=== PATIENT | female | born 1985 | race Caucasian/White ===

== ENCOUNTER 2020-10-23 14:19 | Outpatient (REF) | payer BC, SELFPAY ==
[2020-10-23 16:45] LABS: Glucose Urine UA NEG (NEG); Leukocyte Esterase Urine NEG (NEG); Nitrite Urine NEG (NEG); PH 5.5 (5.0-8.0); Specific Gravity - Urine >= 1.030 (1.005-1.025); Urine Blood 3+ (NEG); Urine Ketones NEG (NEG); Urine Protein NEG (NEG-TRACE)
[2020-10-23 16:48] LABS: Appearance Urine CLEAR; Color Urine YELLOW
[2020-10-23 16:57] LABS: Mucus Urine 2+ /LPF; RBC Urine 30-49 /HPF (0); Squamous Epithelial Cell Urine 1+ /LPF; WBC Urine 0-2 /HPF (0-4)
== END 2020-10-23 14:20 | disposition home or self-care (01) ==
LOC: HO.HMGCLDS 14:19
PROVIDERS: PCP Nurse Practitioner Family; Visit Provider Nurse Practitioner Family
DX: R35.0 Frequency of micturition (principal)
CPT/HCPCS: 81001; 87086

== ENCOUNTER 2021-01-25 13:55 | Outpatient (REF) | payer BC, SELFPAY | END 2021-01-25 13:56 | disposition home or self-care (01) | LOC: HO.LNP 13:55 | PROVIDERS: Visit Provider Physician Assistant | DX: R31.9 Hematuria, unspecified (principal); R35.0 Frequency of micturition | CPT/HCPCS: 87086 ==

== ENCOUNTER → 2021-03-24 10:00 | Outpatient (BNVA) | payer BC, SELFPAY | PROVIDERS: PCP Nurse Practitioner Family; Visit Provider Obstetrics & Gynecology ==

== ENCOUNTER → 2021-04-07 15:03 | Outpatient (BNVA) | payer BC, SELFPAY | PROVIDERS: PCP Nurse Practitioner Family; Visit Provider Obstetrics & Gynecology ==

== ENCOUNTER 2021-04-10 07:00 | Day surgery (SDC) | payer BC, SELFPAY ==
[2021-04-02 19:30] VITALS: BMI 38.5
--- NOTE | 2021-04-09 09:02 | HO.ANESPROP2 ---
Documented by User: Kristina Castro 04/09/21 09:03 HPI - Anesthesia Eval Consult details Narrative: 35yo F for Bilateral Salpingectomy Laparoscopic prn opioids PMFSH Active Problems Active Problems: All Active Problems (Updated 04/02/21 @ 19:28 by Mary Fortune RN) Urinary frequency (Acute) Hematuria (Acute) Past Medical History Medical History Anxiety Frequent UTI Family History Family History Mother Lung cancer Maternal Grandmother Breast cancer Surgical History Surgical History History of appendectomy History of umbilical hernia repair Social History Social History Alcohol intake: never Smoking Status: Never smoker Second Hand Smoke Exposure: No Use of substances other than those prescribed or required for medical reasons: Yes Substance Use Type: Marijuana Substance Use Frequency: Weekly Are you DNR?: No Advance Directives: No Advance Directives Information Provided: No Advance Directives on File: No Recently lost weight without trying: No Nutrition Risks: No Nutritional Risk Patient : No FDLMP: 03/26/21 Sexual orientation: Straight/Heterosexual Gender identity: female Meds Allergies Allergy/AdvReac Type Severity Reaction Status Date / Time Sulfa (Sulfonamide Allergy Mild UNKNOWN Verified 04/10/21 07:34 Antibiotics) [Sulfa (Sulfonamides)] nitrofurantoin AdvReac Intermediate visual Verified 04/10/21 07:34 [From Macrobid] disturbance. amoxicillin [Augmentin] AdvReac Unknown vomiting Verified 04/10/21 07:34 clavulanic acid [Augmentin] AdvReac Unknown vomiting Verified 04/10/21 07:34 sulfa Allergy Unknown patient Uncoded 01/25/21 09:20 can't remember Home Medications Medication Instructions Recorded Confirmed Last Taken Type fluoxetine 20 mg capsule 20 mg PO DAILY 01/25/21 04/02/21 Unknown History Exam Exam Date and Time: April 09, [id number] Height,Weight and Vital Signs: Height 4 ft 9 in Weight 80.739 kg Assessment and Plan Assessment Anesthesia Assessment: Chart Reviewed Documented by User: Jennifer Robin 04/10/21 07:43 PMF Past Medical History Medical History Anxiety Frequent UTI Family History Family History Mother Lung cancer Maternal Grandmother Breast cancer Surgical History Surgical History History of appendectomy History of umbilical hernia repair Social History Social History Alcohol intake: never Smoking Status: Never smoker Second Hand Smoke Exposure: No Use of substances other than those prescribed or required for medical reasons: Yes Substance Use Type: Marijuana Substance Use Frequency: Weekly Are you DNR?: No Advance Directives: No Advance Directives Information Provided: No Advance Directives on File: No Recently lost weight without trying: No Nutrition Risks: No Nutritional Risk Patient : No FDLMP: 03/26/21 Sexual orientation: Straight/Heterosexual Gender identity: female Meds Allergies Allergy/AdvReac Type Severity Reaction Status Date / Time Sulfa (Sulfonamide Allergy Mild UNKNOWN Verified 04/10/21 07:34 Antibiotics) [Sulfa (Sulfonamides)] nitrofurantoin AdvReac Intermediate visual Verified 04/10/21 07:34 [From Macrobid] disturbance. amoxicillin [Augmentin] AdvReac Unknown vomiting Verified 04/10/21 07:34 clavulanic acid [Augmentin] AdvReac Unknown vomiting Verified 04/10/21 07:34 sulfa Allergy Unknown patient Uncoded 01/25/21 09:20 can't remember Home Medications Medication Instructions Recorded Confirmed Last Taken Type fluoxetine 20 mg capsule 20 mg PO DAILY 01/25/21 04/02/21 Unknown History Exam Airway Mallampati Class: II TM Dist: >3cm Neck ROM: Full Assessment and Plan Assessment Anesthesia Assessment: Anesthesia Plan Discussed and Chart Reviewed Final Anesthetic Review NPO: Yes ASA Class: II Final Preanesthetic Review: No Changes in Pt Med Stat, Meds/Allgs Chart Reviewed, Consent Obtained/Reviewed and Anes Risks/Benef Reviewed Patient Risk: Low Procedure Risk: Low Assessment/Block/Sedation in SS: Assess/Block/Sedation-SS Anesthetic Plan Anesthetic Plan: GA Disposition: Standard PACU
[2021-04-10] VITALS (15 sets, daily range): BP systolic 101–137; BP diastolic 51–80; PULSE 64–77; RESP 16–17; TEMP 36.3–36.9; O2SAT 95–99
[2021-04-10] MEDS: Lactated Ringers 1,000 ML 100 ML IVCONT (07:40)
[2021-04-10] MEDS: Acetaminophen 325 MG TABLET 650 MG PO (07:40)
[2021-04-10 08:02] LABS: UPreg QC Valid YES; Urine Pregnancy NEGATIVE (NEGATIVE)
--- NOTE | 2021-04-10 08:03 | P.OP_ITS ---
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 Rubio is a 35 year old who has completed her family planning and desires a permanent form of sterilization. Surgical Risks: The patient was informed of the risks and benefits of the procedure. Risks included but were not limited to bleeding, infection, injury to the vulva, vagina, or cervix, and uterine perforation. The patient was counseled on the risk of sterilization failure being about 1% on average. The patient was informed that in the event a occurs, the risk of ectopic is increased. The patient expressed understanding of the risks involved, all questions were answered, and the patient consented to the procedure. The patient had valid sterilization consent at the time of the procedure. The patient was taken to the operating room where a time out was performed to confirm correct patient and correct procedure. General anesthesia was established. The patient was then positioned on the operating table in the dorsal lithotomy position with the legs supported using stirrups. All pressure points were padded and a Yesica hugger was placed to maintain control of core body temperature. The patient was then prepped and draped in the usual sterile fashion. A red rubber catheter was inserted and 100mL urine obtained. A sponge stick was placed in the vagina for uterine manipulation. Attention was turned to the abdomen where a 5mm horizontal infraumbilical incision was made. The 5mm trocar was introduced under direct visualization using the laparoscopy within the sleeve of the trocar. After intra-abdominal placement had been confirmed, the trocar was removed leaving the sleeve in place. The camera was introduced and pneumoperitoneum was established using carbon dioxide. Inspection of the abdominal cavity showed no gross abnormalities and there was no evidence of injury to the bowel, bladder, or vasculature. A large adhesion of mesentary was noted to the anterior abdominal wall in the midline and an additional adhesion of mesentary to the anterior left pelvic side wall was noted. Attention was turned to the pelvis. The patient was placed into Trendelenburg position. The fallopian tubes and ovaries were visualized bilaterally. It was noted that a portion of the fallopian tube, just distal to the ampula, was scarred to the side wall and the tube itself could not clearly be discerned from the scar tissue in this area. A small incision was made on the patient's left approximately 2cm above and 2cm medial to the left ASIS. A 5mm trocar was introduced through this incision under direct visualization with the laparoscope. The identical procedure was then performed on the right. The fallopian tubes were inspected bilaterally and the fimbriated ends of the fallopian tube were visualized bilaterally. The distal end of the left tube was grasped and lifted up and being careful to avoid the ovarian vessels, salpingectomy was initiated walking the Ligasure device from the distal towards the medial end of the tube. At the area involving scar tissue, an attempt was made to separate the tube with blunt dissection, however a blood vessel was transected. The distal portion of the tube was cauterized and cut and removed through the trocar. An attempt was made to stop the bleeding with the Ligasure device; however, the Tia tip further tore the tissue. After multiple attempts, the decision was made to replace the right 5mm trocar with a 12mm trocar so that a larger Ligasure with a broad tip could be used to achieve coagulation. The 5mm trocar was removed and the incision extended for introduction of the 12mm trocar, which was introduced under direct visualization with the laparoscope. The larger Ligasure was then introduced. Suction was performed to isolate the bleeding and the Ligasure was then used to cauterize the area. Minimal oozing was noted and surgicel was applied. The medial portion of the tube was then cauterized and transected from the uterus at the cornua and removed through the trocar. The right tube was then grasped at the distal end and salpingectomy was performed walking the Ligasure device from the distal towards the medial end of the tube; the tube was cauterized and cut at the cornua. The tubes were sent to pathology for analysis. The left side was again examined. The pelvis was irrigated. No active bleeding was noted; however, the surgicel was noted to be soaked and was replaced with a new piece of surgicel. Good hemostasis was noted. The pneumoperitoneum was then evacuated. The laparoscope was removed and the trocar sleeves were removed. The sponge stick was removed from the vagina. The skin incisions were closed each with a single interrupted 3-0 Vicryl suture and Dermabond was applied. Good hemostasis was confirmed. The nexplanon was palpated in the left arm. The area was cleansed with chloroprep. 2mL 0.5% bupivicaine was injected below the tip of the nexplanon. A 2mm incision was made and the nexplanon was removed in routine fashion by grasp ing with a hemostat and applying gentle traction. The area was cleaned and steri strips placed and the arm wrapped with gauze. The patient tolerated the procedure well. The patient was transferred to the recovery room in stable condition. All needle, sponge, and instrument counts were noted to be correct x2 at the end of the procedure.
--- NOTE | 2021-04-10 08:03 | MHC.SHP ---
Pre-Procedural Eval Section A The patient is an INPATIENT: No Changes since office visit: No Cold of Flu in the past 2 weeks, No New Medical Problems, No Changes in Medication and No Patient answered all questions The History & Physical has been completed within 30 days and I have reviewed it.: Yes Section B Chief Complaint: Unwanted Fertility Allergies: Allergies Allergy/AdvReac Type Severity Reaction Status Date / Time Sulfa (Sulfonamide Allergy Mild UNKNOWN Verified 04/10/21 07:34 Antibiotics) [Sulfa (Sulfonamides)] nitrofurantoin AdvReac Intermediate visual Verified 04/10/21 07:34 [From Macrobid] disturbance. amoxicillin [Augmentin] AdvReac Unknown vomiting Verified 04/10/21 07:34 clavulanic acid [Augmentin] AdvReac Unknown vomiting Verified 04/10/21 07:34 sulfa Allergy Unknown patient Uncoded 01/25/21 09:20 can't remember Plan I have reviewed the history and physical and performed a pertinent physical examination on my patient. No changes have occurred unless specified.
--- NOTE | 2021-04-10 10:52 | PC.NURSE ---
MOLECULAR PATHOLOGIST REPORTED PATIENT WAS STRAIGHT CATH'D IN OR FOR 100 ML URINE OUTPUT.
--- NOTE | 2021-04-10 11:28 | PC.NURSE ---
PATIENT OFFERED PAIN MEDICATION FOR LOWER ABDOMINAL DISCOMFORT 03/31 AND REFUSED AT THIS TIME.
[2021-04-10] MEDS: ondansetron HCL 4 MG/2 ML VIAL IVPUSH (12:18)
--- NOTE | 2021-04-10 12:54 | PC.NURSE ---
patient given phenergan 6.25 mg iv per order for continued report of nausea with movement.
== END 2021-04-10 13:59 | disposition home or self-care (01) ==
LOC: HO.SSS 07:01
PROVIDERS: Nurse Practitioner; PCP Nurse Practitioner Family; Visit Provider Obstetrics & Gynecology
PROC: (CPT 58661; principal; 2021-04-10 08:30)
DX: Z30.2 Encounter for sterilization (principal); K66.0 Peritoneal adhesions (postprocedural) (postinfection); F41.9 Anxiety disorder, unspecified; F12.90 Cannabis use, unspecified, uncomplicated; Z87.440 Personal history of urinary (tract) infections; Z88.1 Allergy status to other antibiotic agents; Z88.2 Allergy status to sulfonamides; Z79.899 Other long term (current) drug therapy
CPT/HCPCS: 58661; 81025; 88302; J1100; J1885; J2250; J2405; J2550; J3010

== ENCOUNTER → 2021-04-25 15:10 | Outpatient (BNVA) | payer BC, SELFPAY | PROVIDERS: PCP Nurse Practitioner Family; Visit Provider Obstetrics & Gynecology ==

== ENCOUNTER 2021-09-24 13:37 | Outpatient (REF) | payer BC, SELFPAY ==
[2021-09-24 15:15] LABS: Hematocrit 37.5 % (37.0-47.0); Hemoglobin 12.7 g/dl (12.0-16.0); Mean Corpuscular HGB Conc 33.9 g/dl (31.0-35.0); Mean Corpuscular Hemoglobin 30.6 pg (27.0-33.0); Mean Corpuscular Volume 90.4 fL (80.0-98.0); Platelet Count 374 X10*3/uL (160-400); Red Blood Count 4.15 X10*6/uL (4.20-5.50); Red Cell Distribution Width 13.1 % (11.0-16.0)
[2021-09-24 16:08] LABS: Thyroid Stimulating Hormone 0.95 uIU/mL (0.32-4.0)
[2021-09-25 05:55] LABS: CT PCR NOT DETECTED (Not Detect.); NG PCR NOT DETECTED (Not Detect.)
[2021-09-25 11:05] LABS: BV Int Neg Control Negative (Negative); BV Int Pos Control Positive (Positive)
[2021-09-27 11:11] LABS: HPV mRNA E6/E7 rflx Not Detected (Not Detected)
== END 2021-09-24 13:38 | disposition home or self-care (01) ==
LOC: HO.LAB 13:37
PROVIDERS: PCP Nurse Practitioner Family; Visit Provider Advanced Practice Midwife
DX: Z01.411 Encounter for gynecological examination (general) (routine) with abnormal findings (principal); Z11.51 Encounter for screening for human papillomavirus (HPV); N92.1 Excessive and frequent menstruation with irregular cycle; N89.8 Other specified noninflammatory disorders of vagina; Z98.51 Tubal ligation status
CPT/HCPCS: 36415; 84443; 85027; 87480; 87491; 87510; 87591; 87624; 87660; 88142

== ENCOUNTER 2021-10-03 15:31 | Outpatient (REF) | payer BC, SELFPAY ==
[2021-10-03 18:09] LABS: Alanine Aminotransferase 11 U/L (0-31); Albumin Level 4.3 g/dL (3.5-5.0); Alkaline Phosphatase 47 U/L (39-117); Amylase 65 U/L (28-100); Anion Gap 13 (12-20); Aspartate Amino Transferase 16 U/L (5-31); Bilirubin Total 0.8 mg/dL (0.0-1.0); Blood Urea Nitrogen 7 mg/dL (9-16); Calcium 9.6 mg/dL (8.4-10.2); Carbon Dioxide 26 mmol/L (22-29); Chloride 102 mmol/L (96-108); Estimated Glomerular Filt Rate > 60; Glucose Random 88 mg/dL (60-115); Lipase 20 U/L (8-78); Potassium 4.2 mmol/L (3.3-5.1); Sodium 137 mmol/L (135-145); Total Protein 7.2 g/dL (6.5-8.0)
== END 2021-10-03 15:32 | disposition home or self-care (01) ==
LOC: HO.LAB 15:31
PROVIDERS: PCP Nurse Practitioner Family; Referring Provider Nurse Practitioner Family; Visit Provider Nurse Practitioner
DX: R10.13 Epigastric pain (principal); Z11.0 Encounter for screening for intestinal infectious diseases
CPT/HCPCS: 36415; 80053; 82150; 83690

== ENCOUNTER 2021-10-23 15:15 | Outpatient (REF) | payer BC, SELFPAY ==
--- NOTE | ~2021-10-23 | US_ITS ---
EXAMINATION: US PELVIS CLINICAL INFORMATION: Excessive and frequent menstruation. COMPARISON: None. TECHNIQUE: Ultrasound of the pelvis is performed using both transabdominal and transvaginal transducers along with Doppler. Transvaginal imaging is performed due to inadequate visualization transabdominally. FINDINGS: UTERUS: The uterus is anteverted and measures 8.6 x 3.6 x 4.1 cm. The double wall endometrial thickness is 11 mm. The uterus is smooth in contour and has normal myometrial echogenicity. No visible fibroid. ADNEXA: Both ovaries are visualized. There is normal color flow to the adnexa. There is no ovarian torsion. There is no pelvic ascites or fluid collection. Right ovary measures 3.4 x 1.8 x 2.3 cm which includes a 1.9 x 1.6 x 1.7 cm simple cyst. Left ovary measures 2.9 x 1.4 x 1.9 cm and appears normal. A small amount of free fluid is present in the cul-de-sac. A tiny amount of fluid is present in the cervical canal. Some nabothian cysts are present. US/US pelvic and transvaginal IMPRESSION: Normal-appearing uterus. A cause for the patient's excessive and frequent menstruation is not seen. A benign right ovarian cyst is present which needs no further follow-up.
== END 2021-10-23 15:16 | disposition home or self-care (01) ==
LOC: HO.US 15:15
PROVIDERS: PCP Nurse Practitioner Family; Visit Provider Advanced Practice Midwife
DX: N92.0 Excessive and frequent menstruation with regular cycle (principal); R35.0 Frequency of micturition
CPT/HCPCS: 76830; 76856

== ENCOUNTER 2021-10-24 08:54 | Outpatient (REF) | payer BC, SELFPAY ==
--- NOTE | ~2021-10-24 | US_ITS ---
EXAMINATION: US ABDOMEN COMPLETE CLINICAL INFORMATION: Epigastric pain. COMPARISON: CT abdomen and pelvis 05/03/2017. TECHNIQUE: Real-time imaging of the abdominal viscera. FINDINGS: PANCREAS: The pancreas appears unremarkable, without masses or ductal dilatation, with the exception of the tail which is obscured by bowel gas. ABDOMINAL AORTA: The proximal, mid, and distal segments are normal in caliber. INFERIOR VENA CAVA: Visualized portions are normal. LIVER: Normal. The liver is normal in size. The liver contour is normal. Parenchymal echogenicity is normal. No focal hepatic lesion. There is no intrahepatic biliary duct dilatation seen. GALLBLADDER: Normal. The gallbladder is physiologically distended without evidence of stones, sludge, polyps, wall thickening or pericholecystic fluid. COMMON BILE DUCT: Normal in caliber measuring 0.3 cm in diameter. RIGHT KIDNEY: Normal. No hydronephrosis. No renal calculi or focal parenchymal lesions. The kidney measures 10.4 cm in maximum dimension. LEFT KIDNEY: Normal. No hydronephrosis. No renal calculi or focal parenchymal lesions. The kidney measures 10.4 cm in maximum dimension. SPLEEN: Normal. The spleen measures 8.0 cm in maximum dimension. FREE FLUID: None. US/US abdomen complete IMPRESSION: No significant abnormality is seen.
== END 2021-10-24 08:55 | disposition home or self-care (01) ==
LOC: HO.HMGCX 08:54
PROVIDERS: Visit Provider Nurse Practitioner
DX: R10.13 Epigastric pain (principal)
CPT/HCPCS: 76700

== ENCOUNTER → 2021-10-30 11:50 | Outpatient (BNVA) | payer BC, SELFPAY | PROVIDERS: PCP Nurse Practitioner Family; Visit Provider Advanced Practice Midwife ==

== ENCOUNTER 2021-11-11 09:00 | Outpatient (REF) | payer BC, SELFPAY | END 2021-11-11 09:01 | disposition home or self-care (01) | LOC: HO.LNP 09:00 | PROVIDERS: Visit Provider Nurse Practitioner | DX: R10.13 Epigastric pain (principal) | CPT/HCPCS: 87338 ==

== ENCOUNTER 2021-11-13 05:54 | Emergency (ER) | payer BC, SELFPAY ==
--- NOTE | ~2021-11-13 | US_ITS ---
EXAMINATION: US ABDOMEN LIMITED CLINICAL INFORMATION: Elevated bilirubin. COMPARISON: Abdominal ultrasound 10/24/2021, CT abdomen and pelvis with contrast 05/03/2017 TECHNIQUE: Real-time imaging of the right upper quadrant abdominal viscera. FINDINGS: PANCREAS: The visualized pancreas is normal in size and echogenicity. There is no pancreatic ductal distention or retroperitoneal effusion. Portions of the pancreas are partly obscured by bowel gas. LIVER: Normal. The liver is normal in size. The liver contour is normal. Parenchymal echogenicity is normal. No focal hepatic lesion. There is no intrahepatic biliary duct dilatation seen. Color Doppler shows portal flow towards the liver. GALLBLADDER: No cholelithiasis or sludge. No gallbladder wall thickening. Negative sonographic Bass's sign. No pericholecystic fluid. The gallbladder is physiologically distended. COMMON BILE DUCT: Normal in caliber measuring 0.3 cm in diameter. RIGHT KIDNEY: No hydronephrosis. No renal calculi. The kidney measures 10.2 cm in maximum dimension. There is a tiny cyst mid to lower pole 0.[address] 2017. No additional imaging follow-up required. FREE FLUID: None. US/US abdomen limited IMPRESSION: 1. No cholelithiasis or biliary ductal dilatation. 2. Liver normal in size and echogenicity. No intrahepatic ductal dilatation.
--- NOTE | ~2021-11-13 | XR_ITS ---
EXAMINATION: XR CHEST CLINICAL INFORMATION: Palpitations COMPARISON: None TECHNIQUE: Frontal view of the chest was obtained. FINDINGS: No significant abnormality is noted involving the heart, lungs, mediastinum, bony thorax or soft tissues. XR/XR chest 1V IMPRESSION: Unremarkable chest exam.
[2021-11-13 05:59] VITALS: BP 123/52; PULSE 82; RESP 20; O2SAT 99; BMI 34.4
--- NOTE | 2021-11-13 06:01 | ECG_ITS ---
Test Reason : PALPITATIONS Blood Pressure : / mmHG Vent. Rate : 066 BPM Atrial Rate : 066 BPM P-R Int : 128 ms QRS Dur : 092 ms QT Int : 430 ms P-R-T Axes : 038 060 047 degrees QTc Int : 450 ms Normal sinus rhythm Normal ECG No previous ECGs available Referred By: Generic ED Physician Electronically Signed By:DMITRIY MARTINEZ
--- NOTE | 2021-11-13 06:53 | ED.ARRPALP ---
HPI - Arrhythmia/Palpitations General Chief Complaint: Arrhythmia/Palpitations Stated Complaint: Palpitations Time Seen by Provider: 11/13/21 06:51 Source: patient Mode of arrival: ambulatory Limitations: no limitations History of Present Illness HPI narrative: 36-year-old female came in for evaluation of palpitation. Symptoms started about week ago, intermittent, when it, it last for few minutes and goes away feel like chest is bounding and feel warm numbing sensation all over the chest, not associated with any difficulty breathing, no exacerbating factor, no relieving factor, patient only smokes marijuana but no cigarettes, declined any other use of medication. No family history of heart disease at young age, no salt this runs in the family. Patient has bilateral tubal removal declined any chest pain , Related Data Home Medications Medication Instructions Recorded Confirmed fluoxetine 20 mg capsule 20 mg PO DAILY PRN 07/09/21 07/09/21 Previous Rx's Medication Instructions Recorded ondansetron HCl 4 mg tablet 4 mg PO Q8H PRN 20 Days #60 tab 08/27/21 (Zofran) famotidine 40 mg tablet (Pepcid) 40 mg PO BEDTIME 30 Days #30 tab 10/03/21 omeprazole 20 mg capsule,delayed 40 mg PO DAILY 90 Days #180 cap 10/03/21 release Allergies Allergy/AdvReac Type Severity Reaction Status Date / Time Sulfa (Sulfonamide Allergy Mild UNKNOWN Verified 11/13/21 05:59 Antibiotics) [Sulfa (Sulfonamides)] nitrofurantoin AdvReac Intermediate visual Verified 11/13/21 05:59 [From Macrobid] disturbance. amoxicillin [Augmentin] AdvReac Unknown vomiting Verified 11/13/21 05:59 clavulanic acid [Augmentin] AdvReac Unknown vomiting Verified 11/13/21 05:59 Review of Systems Review of Systems: All other systems are reviewed and are negative Constitutional: Reports as per HPI and Reports no additional constitutional complaints Eyes: Reports as per HPI and Reports no additional eye complaints Reports system reviewed and no additional complaints, except as documented Cardiovascular: Reports as per HPI and Reports no additional cardiovascular complaints Respiratory: Reports as per HPI and Reports no additional respiratory complaints Gastrointestinal: Reports as per HPI and Reports no additional gastrointestinal complaints Genitourinary: Reports no additional female genitourinary complaints Musculoskeletal: Reports no additional musculoskeletal complaints Skin/Breast: Reports system reviewed and no additional complaints, except as docu Psychiatric: Reports no additional psychiatric complaints Endocrine: Reports no additional endocrine complaints Hematologic/Lymphatic: Reports no additional hematologic/lymphatic complaints Allergic/Immunologic: Reports no additional allergic/immunologic complaints Reports system reviewed and no additional complaints, except as documented and Reports Abnormal speech present FORMERLY [facility], [facility] Past Medical History Medical History Anxiety Frequent UTI GERD (gastroesophageal reflux disease) Surgical History History of appendectomy History of umbilical hernia repair Hx of bilateral salpingectomy Family History Family History Mother Lung cancer Maternal Grandmother Breast cancer Social History Social History Housing: Apartment Alcohol intake: never Patient Tobacco Use Status: Never used Tobacco Second Hand Smoke Exposure: No Use of substances other than those prescribed or required for medical reasons: No Substance Use Type: Marijuana Advance Directives: No Advance Directives Information Provided: No Current occupational status: employed Current occupation: [employer] Current occupational exposures/hazards: No Sexual orientation: Straight/Heterosexual Gender identity: Female Physical Exam Vital Signs: Vital Signs: Last Vital Signs Pulse 66 11/13/21 09:00 Resp 18 11/13/21 09:00 BP 114/62 11/13/21 09:00 Pulse Ox 100 11/13/21 09:00 BMI result Body Mass Index 34.4 Vital signs have been reviewed as appeared to be correct. Blood pressure normal. Heart rate normal. Respiration rate normal. Temperature normal. Oxygen saturation normal. Appearance: Alert. Oriented X3. No acute distress. Head: Normal external exam. Normocephalic. Atraumatic. No Correa signs noted. No raccoon eyes noted Eyes: PERRLA. EOMI. Conjunctiva and sclera normal. Eyelids normal. ENT: TM's Normal. Pharynx normal. Uvula midline. Moist mucous membranes. No trismus noted. No drooling noted. No muffled voice noted. Neck: Normal inspection. Neck supple. FROM. No adenopathy. Thyroid Normal. No meningeal signs. No neck mass noted. CVS: Normal heart rate and rhythm. Heart sound normal. No murmurs noted. Pulses normal throughout. Respiratory: No respiratory distress. Painless inspiration. Breath sounds normal. No wheezes/rales/rhonchi noted. Chest nontender. No accessory muscle usage noted or decreased air movement noted. Abdomen: Soft and nontender. Bowel sounds normal in all 4 quadrants. No distention noted. No organomegaly noted. No visible injury noted. Back: No CVA tenderness. Full range of motion noted. Skin: Skin warm and dry. Normal skin color. Normal skin turgor. No rashes/lesions/lacerations noted. Extremities: No lower extremity edema. Extremities exhibit normal range of motion. Extremities nontender. Neuro: Oriented X 3. Cranial nerve exam: II-XII are grossly intact No motor deficit. No sensory deficit. Reflexes normal. Course Course Course Narrative: Assessment and plan. 36-year-old female came in for evaluation of intermittent palpitations for week, patient has unremarkable blood workup except for elevated bili room vision but patient had abdominal ultrasound showed no hepato_billiary pathology, likely patient's symptoms is secondary to anxiety especially patient had a history of anxiety. MDM - Arrhythmia/Palpitations Medical Records Attestation: I reviewed the patient's medical records. Lab Data Attestation: I reviewed the patient's lab results. Result diagrams: 11/13/21 07:09 11/13/21 07:09 Labs: Lab Results 11/13/21 11/13/21 11/13/21 Range/Units 07:09 07:09 07:09 WBC 12.6 H (4.8-10.8) X10*3/uL RBC 4.15 L (4.20-5.50) X10*6/uL Hgb 12.5 (12.0-16.0) g/dl Hct 37.5 (37.0-47.0) % MCV 90.4 (80.0-98.0) fL MCH 30.1 (27.0-33.0) pg MCHC 33.3 (31.0-35.0) g/dl RDW 12.8 (11.0-16.0) % Plt Count 341 (160-400) X10*3/uL MPV 9.8 (9.4-12.3) fL Immature Gran % (Auto) 0.6 H (0.0-0.4) % Neut % (Auto) 86.0 H (45-73) % Lymph % (Auto) 8.2 L (20-40) % Irwin % (Auto) 4.8 (2-11) % Eos % (Auto) 0.2 (0-4) % Baso % (Auto) 0.2 (0-2) % Lymph # (Auto) 1.0 L (1.2-4.9) X10*3/uL Irwin # (Auto) 0.6 (0.1-1.2) X10*3/uL Eos # (Auto) 0.0 (0.0-0.4) X10*3/uL Baso # (Auto) 0.0 (0.0-0.2) X10*3/uL Abs Immat Gran (auto) 0.07 H (0.00-0.03) X10*3/uL Absolute Neuts (auto) 10.8 H (2.0-8.3) x10*3/uL Absolute Nucleated RBC 0.000 (0.0-0.012) X10*3/uL Nucleated RBC % (auto) 0.0 (0.0-0.2) /100WBC D-Dimer High Sensitivty NG/ML Sodium 139 (135-145) mmol/L Potassium 3.9 (3.3-5.1) mmol/L Chloride 105 (96-108) mmol/L Carbon Dioxide 27 (22-29) mmol/L Anion Gap 11 L (12-20) BUN 7 L (9-16) mg/dL Creatinine 0.76 (0.5-1.4) mg/dL Estim Creat Clear Calc 89.7 Estimated GFR > 60 Random Glucose 94 (60-115) mg/dL Calcium 10.0 (8.4-10.2) mg/dL Total Bilirubin 2.0 H (0.0-1.0) mg/dL Direct Bilirubin 0.7 H (0.0-0.5) mg/dL AST 18 (5-31) U/L ALT 15 (0-31) U/L Alkaline Phosphatase 45 (39-117) U/L Troponin I High Sens < 3.5 (<3.5-17.0) ng/L B-Natriuretic Peptide (<100) pg/mL Total Protein 7.1 (6.5-8.0) g/dL Albumin 4.4 (3.5-5.0) g/dL Lipase 7 L (8-78) U/L Urine Color Urine Appearance Urine pH (5.0-8.0) Ur Specific [place] (1.005-1.025) Urine Protein (NEG-TRACE) MG/DL Urine Glucose (UA) (NEG) MG/DL Urine Ketones (NEG) MG/DL Urine Blood (NEG) Urine Nitrite (NEG) Ur Leukocyte Esterase (NEG) Urine RBC (0) /HPF Urine WBC (0-4) /HPF Ur Squamous Epith Cells /LPF Urine Bacteria /LPF Urine Mucus /LPF Urine Test (NEGATIVE) Urine Opiates Screen (Not Detect) Urine Fentanyl Screen (Not Detect) Ur Barbiturates Screen (Not Detect) Ur Phencyclidine Scrn (Not Detect) Ur Amphetamines Screen (Not Detect) U Benzodiazepines Scrn (Not Detect) Urine Cocaine Screen (Not Detect) U Marijuana (THC) Screen (Not Detect) 11/13/21 11/13/21 11/13/21 Range/Units 07:09 07:09 09:05 WBC (4.8-10.8) X10*3/uL RBC (4.20-5.50) X10*6/uL Hgb (12.0-16.0) g/dl Hct (37.0-47.0) % MCV (80.0-98.0) fL MCH (27.0-33.0) pg MCHC (31.0-35.0) g/dl RDW (11.0-16.0) % Plt Count (160-400) X10*3/uL MPV (9.4-12.3) fL Immature Gran % (Auto) (0.0-0.4) % Neut % (Auto) (45-73) % Lymph % (Auto) (20-40) % Irwin % (Auto) (2-11) % Eos % (Auto) (0-4) % Baso % (Auto) (0-2) % Lymph # (Auto) (1.2-4.9) X10*3/uL Irwin # (Auto) (0.1-1.2) X10*3/uL Eos # (Auto) (0.0-0.4) X10*3/uL Baso # (Auto) (0.0-0.2) X10*3/uL Abs Immat Gran (auto) (0.00-0.03) X10*3/uL Absolute Neuts (auto) (2.0-8.3) x10*3/uL Absolute Nucleated RBC (0.0-0.012) X10*3/uL Nucleated RBC % (auto) (0.0-0.2) /100WBC D-Dimer High Sensitivty 222 NG/ML Sodium (135-145) mmol/L Potassium (3.3-5.1) mmol/L Chloride (96-108) mmol/L Carbon Dioxide (22-29) mmol/L Anion Gap (12-20) BUN (9-16) mg/dL Creatinine (0.5-1.4) mg/dL Estim Creat Clear Calc Estimated GFR Random Glucose (60-115) mg/dL Calcium (8.4-10.2) mg/dL Total Bilirubin (0.0-1.0) mg/dL Direct Bilirubin (0.0-0.5) mg/dL AST (5-31) U/L ALT (0-31) U/L Alkaline Phosphatase (39-117) U/L Troponin I High Sens (<3.5-17.0) ng/L B-Natriuretic Peptide 23 (<100) pg/mL Total Protein (6.5-8.0) g/dL Albumin (3.5-5.0) g/dL Lipase (8-78) U/L Urine Color Urine Appearance Urine pH (5.0-8.0) Ur Specific [place] (1.005-1.025) Urine Protein (NEG-TRACE) MG/DL Urine Glucose (UA) (NEG) MG/DL Urine Ketones (NEG) MG/DL Urine Blood (NEG) Urine Nitrite (NEG) Ur Leukocyte Esterase (NEG) Urine RBC (0) /HPF Urine WBC (0-4) /HPF Ur Squamous Epith Cells /LPF Urine Bacteria /LPF Urine Mucus /LPF Urine Test (NEGATIVE) Urine Opiates Screen Not Detected (Not Detect) Urine Fentanyl Screen Not Detected (Not Detect) Ur Barbiturates Screen Not Detected (Not Detect) Ur Phencyclidine Scrn Not Detected (Not Detect) Ur Amphetamines Screen Not Detected (Not Detect) U Benzodiazepines Scrn Not Detected (Not Detect) Urine Cocaine Screen Not Detected (Not Detect) U Marijuana (THC) Screen POSITIVE H (Not Detect) 11/13/21 11/13/21 Range/Units 09:05 09:05 WBC (4.8-10.8) X10*3/uL RBC (4.20-5.50) X10*6/uL Hgb (12.0-16.0) g/dl Hct (37.0-47.0) % MCV (80.0-98.0) fL MCH (27.0-33.0) pg MCHC (31.0-35.0) g/dl RDW (11.0-16.0) % Plt Count (160-400) X10*3/uL MPV (9.4-12.3) fL Immature Gran % (Auto) (0.0-0.4) % Neut % (Auto) (45-73) % Lymph % (Auto) (20-40) % Irwin % (Auto) (2-11) % Eos % (Auto) (0-4) % Baso % (Auto) (0-2) % Lymph # (Auto) (1.2-4.9) X10*3/uL Irwin # (Auto) (0.1-1.2) X10*3/uL Eos # (Auto) (0.0-0.4) X10*3/uL Baso # (Auto) (0.0-0.2) X10*3/uL Abs Immat Gran (auto) (0.00-0.03) X10*3/uL Absolute Neuts (auto) (2.0-8.3) x10*3/uL Absolute Nucleated RBC (0.0-0.012) X10*3/uL Nucleated RBC % (auto) (0.0-0.2) /100WBC D-Dimer High Sensitivty NG/ML Sodium (135-145) mmol/L Potassium (3.3-5.1) mmol/L Chloride (96-108) mmol/L Carbon Dioxide (22-29) mmol/L Anion Gap (12-20) BUN (9-16) mg/dL Creatinine (0.5-1.4) mg/dL Estim Creat Clear Calc Estimated GFR Random Glucose (60-115) mg/dL Calcium (8.4-10.2) mg/dL Total Bilirubin (0.0-1.0) mg/dL Direct Bilirubin (0.0-0.5) mg/dL AST (5-31) U/L ALT (0-31) U/L Alkaline Phosphatase (39-117) U/L Troponin I High Sens (<3.5-17.0) ng/L B-Natriuretic Peptide (<100) pg/mL Total Protein (6.5-8.0) g/dL Albumin (3.5-5.0) g/dL Lipase (8-78) U/L Urine Color YELLOW Urine Appearance HAZY Urine pH 6.0 (5.0-8.0) Ur Specific [place] 1.010 (1.005-1.025) Urine Protein NEG (NEG-TRACE) MG/DL Urine Glucose (UA) NEG (NEG) MG/DL Urine Ketones 40 (NEG) MG/DL Urine Blood 3+ H (NEG) Urine Nitrite NEG (NEG) Ur Leukocyte Esterase NEG (NEG) Urine RBC 15-29 H (0) /HPF Urine WBC 0-2 (0-4) /HPF Ur Squamous Epith Cells 2+ /LPF Urine Bacteria 1+ /LPF Urine Mucus 1+ /LPF Urine Test NEGATIVE (NEGATIVE) Urine Opiates Screen (Not Detect) Urine Fentanyl Screen (Not Detect) Ur Barbiturates Screen (Not Detect) Ur Phencyclidine Scrn (Not Detect) Ur Amphetamines Screen (Not Detect) U Benzodiazepines Scrn (Not Detect) Urine Cocaine Screen (Not Detect) U Marijuana (THC) Screen (Not Detect) Imaging Data Chest x-ray: Attestation: I personally reviewed and interpreted this imaging study as follows: Radiologist's impression: Unremarkable chest exam Abdominal ultrasound: Attestation: I personally reviewed and interpreted this imaging study as follows: Radiologist's impression: 1. No cholelithiasis or biliary ductal dilatation. 2. Liver normal in size and echogenicity. No intrahepatic ductal dilatation. Discharge Plan Discharge Clinical Impression: Heart palpitations, Elevated bilirubin Patient Disposition: Home, Self-Care Instructions: Heart Palpitations (ED) Prescriptions: No Action ondansetron HCl [Zofran] 4 mg tablet 4 mg PO Q8H PRN (Reason: nausea and vomiting) 20 Days Qty: 60 RF: 0 fluoxetine 20 mg capsule 20 mg PO DAILY PRNRF: 0 omeprazole 20 mg capsule,delayed release(DR/EC) 40 mg PO DAILY 90 Days Qty: 180 RF: 0 famotidine [Pepcid] 40 mg tablet 40 mg PO BEDTIME 30 Days Qty: 30 RF: 3 Referrals: Buzz Blair, [employer] [Primary Care Provider] - 2 days Stand Alone Forms: Work/School Release
[2021-11-13 07:14] LABS: MANUAL DIFF FLAG NO
[2021-11-13 07:15] LABS: Basophils Percent Auto 0.2 % (0-2); Eosinophils Percent Auto 0.2 % (0-4); Hematocrit 37.5 % (37.0-47.0); Hemoglobin 12.5 g/dl (12.0-16.0); Imm Gran Abs Auto 0.07 X10*3/uL (0.00-0.03); Imm Gran Pct Auto 0.6 % (0.0-0.4); Lymphocytes Percent Auto 8.2 % (20-40); Mean Corpuscular HGB Conc 33.3 g/dl (31.0-35.0); Mean Corpuscular Hemoglobin 30.1 pg (27.0-33.0); Mean Corpuscular Volume 90.4 fL (80.0-98.0); Mean Platelet Volume 9.8 fL (9.4-12.3); Monocytes Absolute Auto 0.6 X10*3/uL (0.1-1.2); Monocytes Percent Auto 4.8 % (2-11); Neutrophils Absolute Auto 10.8 x10*3/uL (2.0-8.3); Platelet Count 341 X10*3/uL (160-400); Red Blood Count 4.15 X10*6/uL (4.20-5.50); Red Cell Distribution Width 12.8 % (11.0-16.0); White Blood Count 12.6 X10*3/uL (4.8-10.8)
[2021-11-13 07:25] LABS: D Dimer High Sensitivity 222 NG/ML
[2021-11-13 07:31] LABS: Alanine Aminotransferase 15 U/L (0-31); Albumin Level 4.4 g/dL (3.5-5.0); Alkaline Phosphatase 45 U/L (39-117); Anion Gap 11 (12-20); Aspartate Amino Transferase 18 U/L (5-31); Bilirubin Direct 0.7 mg/dL (0.0-0.5); Blood Urea Nitrogen 7 mg/dL (9-16); Carbon Dioxide 27 mmol/L (22-29); Chloride 105 mmol/L (96-108); Creatinine Clr Calc Pharmacy 89.7; Estimated Glomerular Filt Rate > 60; Glucose Random 94 mg/dL (60-115); Lipase 7 U/L (8-78); Potassium 3.9 mmol/L (3.3-5.1); Sodium 139 mmol/L (135-145); Total Protein 7.1 g/dL (6.5-8.0)
[2021-11-13 07:36] LABS: B Type Natriuretic Peptide 23 pg/mL (<100); Troponin-I High Sensitivity < 3.5 ng/L (<3.5-17.0)
[2021-11-13 09:00] VITALS: BP 114/62; PULSE 66; RESP 18; O2SAT 100
[2021-11-13 09:12] LABS: Appearance Urine HAZY; Color Urine YELLOW; Glucose Urine UA NEG (NEG); Leukocyte Esterase Urine NEG (NEG); Nitrite Urine NEG (NEG); UACC Culture Trigger NO; Urine Blood 3+ (NEG); Urine Ketones 40 MG/DL (NEG); Urine Protein NEG (NEG-TRACE)
[2021-11-13 09:14] LABS: UPreg QC Valid YES; Urine Pregnancy NEGATIVE (NEGATIVE)
[2021-11-13 09:23] LABS: WBC Urine 0-2 /HPF (0-4)
[2021-11-13 09:24] LABS: Bacteria Urine 1+ /LPF; Mucus Urine 1+ /LPF; Squamous Epithelial Cell Urine 2+ /LPF
[2021-11-13 09:26] LABS: Amphetamine Screen Urine Not Detected (Not Detect); Barbiturates, Urine Not Detected (Not Detect); Benzodiazepines Screen Urine Not Detected (Not Detect); Cannabinoid Screen Urine POSITIVE (Not Detect); Cocaine Screen Urine Not Detected (Not Detect); Fentanyl, urine Not Detected (Not Detect); Opiate Screen Urine Not Detected (Not Detect); Phencyclidine Screen Urine Not Detected (Not Detect)
== END 2021-11-13 10:19 | disposition home or self-care (01) ==
PROVIDERS: Emergency Provider Emergency Medicine; PCP Nurse Practitioner Family
DX: R00.2 Palpitations (principal); E80.6 Other disorders of bilirubin metabolism
CPT/HCPCS: 36415; 71045; 76705; 80048; 80076; 80307; 81001; 81025; 83690; 83880; 84484; 85025; 85379; 93005; 99284; 99285

== ENCOUNTER 2021-11-19 15:42 | Emergency (ER) | payer BC, SELFPAY ==
--- NOTE | ~2021-11-19 | XR_ITS ---
EXAMINATION: XR CHEST CLINICAL INFORMATION: Chest pain COMPARISON: 11/13/2021 TECHNIQUE: Frontal view of the chest was obtained. FINDINGS: The lungs are clear with no focal consolidation. No evidence of pneumothorax, pulmonary edema, or pleural effusions. The cardiomediastinal silhouette is unremarkable. No acute osseous findings. XR/XR chest 1V IMPRESSION: No acute cardiopulmonary findings.
[2021-11-19 15:52] VITALS: BP 110/80; PULSE 66; O2SAT 100
--- NOTE | 2021-11-19 17:09 | ECG_ITS ---
Test Reason : SYNCOPE Blood Pressure : / mmHG Vent. Rate : 065 BPM Atrial Rate : 065 BPM P-R Int : 118 ms QRS Dur : 092 ms QT Int : 424 ms P-R-T Axes : 016 036 015 degrees QTc Int : 440 ms Normal sinus rhythm Nonspecific ST abnormality Abnormal ECG When compared with ECG of 13-NOV-2021 06:02, Nonspecific T wave abnormality now evident in Inferior leads Referred By: Generic ED Physician Electronically Signed By:Tee Schroeder
[2021-11-19 17:58] VITALS: BP 113/72; PULSE 87; RESP 16; TEMP 36.2; O2SAT 100; BMI 34.4
[2021-11-19 18:31] LABS: Appearance Urine HAZY; Color Urine YELLOW; Glucose Urine UA NEG (NEG); Leukocyte Esterase Urine NEG (NEG); Nitrite Urine NEG (NEG); Specific Gravity - Urine 1.025 (1.005-1.025); UACC Culture Trigger NO; Urine Blood 3+ (NEG); Urine Ketones >=80 MG/DL (NEG); Urine Protein NEG (NEG-TRACE)
[2021-11-19 19:15] LABS: Bacteria Urine 1+ /LPF; Squamous Epithelial Cell Urine TRACE /LPF
[2021-11-19 21:07] LABS: MANUAL DIFF FLAG NO
[2021-11-19 21:08] LABS: Basophils Percent Auto 0.3 % (0-2); Eosinophils Percent Auto 0.1 % (0-4); Hematocrit 40.5 % (37.0-47.0); Hemoglobin 13.6 g/dl (12.0-16.0); Imm Gran Abs Auto 0.01 X10*3/uL (0.00-0.03); Imm Gran Pct Auto 0.1 % (0.0-0.4); Lymphocytes Absolute Auto 1.9 X10*3/uL (1.2-4.9); Mean Corpuscular HGB Conc 33.6 g/dl (31.0-35.0); Mean Corpuscular Hemoglobin 30.2 pg (27.0-33.0); Mean Corpuscular Volume 89.8 fL (80.0-98.0); Mean Platelet Volume 10.4 fL (9.4-12.3); Monocytes Absolute Auto 0.7 X10*3/uL (0.1-1.2); Monocytes Percent Auto 9.7 % (2-11); Neutrophils Absolute Auto 4.1 x10*3/uL (2.0-8.3); Neutrophils Percent Auto 61.8 % (45-73); Platelet Count 299 X10*3/uL (160-400); Red Blood Count 4.51 X10*6/uL (4.20-5.50); Red Cell Distribution Width 12.6 % (11.0-16.0); White Blood Count 6.7 X10*3/uL (4.8-10.8)
[2021-11-19 21:31] LABS: Alanine Aminotransferase 12 U/L (0-31); Albumin Level 4.5 g/dL (3.5-5.0); Alkaline Phosphatase 41 U/L (39-117); Anion Gap 12 (12-20); Aspartate Amino Transferase 19 U/L (5-31); Bilirubin Direct 0.3 mg/dL (0.0-0.5); Bilirubin Total 0.7 mg/dL (0.0-1.0); Blood Urea Nitrogen 7 mg/dL (9-16); Calcium 10.1 mg/dL (8.4-10.2); Carbon Dioxide 30 mmol/L (22-29); Chloride 102 mmol/L (96-108); Creatinine Clr Calc Pharmacy 103.3; Estimated Glomerular Filt Rate > 60; Glucose Random 80 mg/dL (60-115); Lipase 10 U/L (8-78); Potassium 3.5 mmol/L (3.3-5.1); Sodium 140 mmol/L (135-145); Total Protein 7.5 g/dL (6.5-8.0)
[2021-11-19 23:38] VITALS: BP 146/63; PULSE 66; RESP 11; O2SAT 100
--- NOTE | 2021-11-19 23:48 | ED_ITS ---
HPI - General Adult General Chief complaint: Nausea/Vomiting/Diarrhea Stated complaint: vomiting/syncope Time Seen by Provider: 11/19/21 16:23 Source: patient Limitations: no limitations History of Present Illness HPI narrative: This is a 36-year-old female with a history of anxiety, on fluoxetine, who complains of a feeling of poor appetite, and discomfort in her stomach as well as in her throat, worse when she lies down at night. Patient has had nausea for about 3 weeks. She has not vomited since yesterday. She has had recent constipation has not had a bowel movement 5 days. She denies any urinary symptoms. She feels as though her mouth is dry. She notes that she was waiting in her car to be seen at an urgent care today when she allegedly had a syncopal episode and ended up being brought here by ambulance. She has had some pain underneath her right breast going around through to the back and does have some shortness of breath. Patient was seen here on November 13 for similar complaints and was told symptoms were due to anxiety. At that time she had an abdominal ultrasound, chest x-ray, and other studies done. 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 She notes she has tried omeprazole for her current symptoms without any relief. Related Data Previous Rx's Medication Instructions Recorded ondansetron HCl 4 mg tablet 4 mg PO Q8H PRN 20 Days #60 tab 08/27/21 (Zofran) famotidine 40 mg tablet (Pepcid) 40 mg PO BEDTIME 30 Days #30 tab 10/03/21 omeprazole 20 mg capsule,delayed 40 mg PO DAILY 90 Days #180 cap 10/03/21 release fluoxetine 20 mg capsule 20 mg PO DAILY 90 Days #90 cap 11/13/21 ondansetron 4 mg disintegrating 4 mg PO Q6H PRN #10 tab 11/20/21 tablet Allergies Allergy/AdvReac Type Severity Reaction Status Date / Time Sulfa (Sulfonamide Allergy Mild UNKNOWN Verified 11/19/21 17:57 Antibiotics) [Sulfa (Sulfonamides)] nitrofurantoin AdvReac Intermediate visual Verified 11/13/21 05:59 [From Macrobid] disturbance. amoxicillin [Augmentin] AdvReac Unknown vomiting Verified 11/13/21 05:59 clavulanic acid [Augmentin] AdvReac Unknown vomiting Verified 11/13/21 05:59 Review of Systems Review of Systems: Yes all other systems are reviewed and are negative Constitutional: Constitutional: Reports as per HPI and Denies fever(s) Eyes: Eyes: Reports as per HPI and Reports no additional eye complaints ENT: Reports system reviewed and no additional complaints, except as documented, Reports as per HPI, Denies nasal congestion, Denies nasal discharge and Reports sore throat Cardiovascular: Cardiovascular: Reports as per HPI, Reports chest pain and Denies dyspnea Respiratory: Respiratory: Reports as per HPI, Denies cough and Denies dyspnea Gastrointestinal: Gastrointestinal: Reports as per HPI, Denies abdominal pain, Reports constipation, Denies diarrhea, Reports nausea and Reports vomiting Genitourinary: Genitourinary: Reports as per HPI, Denies hematuria, Denies urinary frequency and Denies dysuria Musculoskeletal: Musculoskeletal: Reports no additional musculoskeletal complaints and Denies numbness Integumentary/Breasts: Skin/Breast: Reports as per HPI and Denies rash Neurologic: Reports as per HPI, Denies focal weakness and Denies numbness Psychiatric: Psychiatric: Reports no additional psychiatric complaints and Reports as per HPI Endocrine: Endocrine: Reports no additional endocrine complaints and Reports as per HPI Hematologic/Lymphatic: Hematologic/Lymphatic: Reports no additional hematologic/lymphatic complaints, Reports as per HPI and Reports other (No peripheral edema) [facility] Past Medical History Medical History Anxiety Frequent UTI GERD (gastroesophageal reflux disease) Surgical History History of appendectomy History of umbilical hernia repair Hx of bilateral salpingectomy Family History Family History Mother Lung cancer Maternal Grandmother Breast cancer Social History Social History Housing: Apartment Alcohol intake: never Patient Tobacco Use Status: Never used Tobacco Second Hand Smoke Exposure: No Substance Use Type: Marijuana Advance Directives: No Advance Directives Information Provided: Yes Patient : No Current occupational status: employed Current occupation: [employer] Current occupational exposures/hazards: No Sexual orientation: Straight/Heterosexual Gender identity: Female Physical Exam Vital Signs: Vital Signs: Last Vital Signs Temp 97.2 F 11/19/21 17:58 Pulse 66 11/19/21 23:38 Resp 11 L 11/19/21 23:38 BP 146/63 H 11/19/21 23:38 Pulse Ox 100 11/19/21 23:38 BMI result Body Mass Index 34.4 Medical Decision Making MDM Narrative Medical decision making narrative: Patient with GI complaints of feeling that she has poor appetite and has had nausea and vomiting. Patient has had some chronic GI issues. Patient reported no respiratory symptoms but has had some throat discomfort. Workup was negative except for a positive COVID test. Patient also complained of right-sided chest pain. Patient had a workup on November 13 for similar complaints and had a negative D-dimer and chest x-ray then, and both again were negative tonight. Lab Data Result diagrams: 11/19/21 21:03 11/19/21 21:03 Labs: Lab Results 11/19/21 11/19/21 11/19/21 Range/Units 18:10 21:03 21:03 WBC 6.7 (4.8-10.8) X10*3/uL RBC 4.51 (4.20-5.50) X10*6/uL Hgb 13.6 (12.0-16.0) g/dl Hct 40.5 (37.0-47.0) % MCV 89.8 (80.0-98.0) fL MCH 30.2 (27.0-33.0) pg MCHC 33.6 (31.0-35.0) g/dl RDW 12.6 (11.0-16.0) % Plt Count 299 (160-400) X10*3/uL MPV 10.4 (9.4-12.3) fL Immature Gran % (Auto) 0.1 (0.0-0.4) % Neut % (Auto) 61.8 (45-73) % Lymph % (Auto) 28.0 (20-40) % [place] % (Auto) 9.7 (2-11) % Eos % (Auto) 0.1 (0-4) % Baso % (Auto) 0.3 (0-2) % Lymph # (Auto) 1.9 (1.2-4.9) X10*3/uL [place] # (Auto) 0.7 (0.1-1.2) X10*3/uL Eos # (Auto) 0.0 (0.0-0.4) X10*3/uL Baso # (Auto) 0.0 (0.0-0.2) X10*3/uL Abs Immat Gran (auto) 0.01 (0.00-0.03) X10*3/uL Absolute Neuts (auto) 4.1 (2.0-8.3) x10*3/uL Absolute Nucleated RBC 0.000 (0.0-0.012) X10*3/uL Nucleated RBC % (auto) 0.0 (0.0-0.2) /100WBC D-Dimer High Sensitivty NG/ML Sodium 140 (135-145) mmol/L Potassium 3.5 (3.3-5.1) mmol/L Chloride 102 (96-108) mmol/L Carbon Dioxide 30 H (22-29) mmol/L Anion Gap 12 (12-20) BUN 7 L (9-16) mg/dL Creatinine 0.66 (0.5-1.4) mg/dL Estim Creat Clear Calc 103.3 Estimated GFR > 60 Random Glucose 80 (60-115) mg/dL Calcium 10.1 (8.4-10.2) mg/dL Total Bilirubin 0.7 (0.0-1.0) mg/dL Direct Bilirubin 0.3 (0.0-0.5) mg/dL AST 19 (5-31) U/L ALT 12 (0-31) U/L Alkaline Phosphatase 41 (39-117) U/L Total Protein 7.5 (6.5-8.0) g/dL Albumin 4.5 (3.5-5.0) g/dL Lipase 10 (8-78) U/L Urine Color YELLOW Urine Appearance HAZY Urine pH 6.0 (5.0-8.0) Ur Specific [place] 1.025 (1.005-1.025) Urine Protein NEG (NEG-TRACE) MG/DL Urine Glucose (UA) NEG (NEG) MG/DL Urine Ketones >=80 (NEG) MG/DL Urine Blood 3+ H (NEG) Urine Nitrite NEG (NEG) Ur Leukocyte Esterase NEG (NEG) Urine RBC 5-9 H (0) /HPF Urine WBC 1-4 (0-4) /HPF Ur Squamous Epith Cells TRACE /LPF Urine Bacteria 1+ /LPF COVID-19 (AUREA) (Negative) COVID-19 Clin Com 11/20/21 11/20/21 Range/Units 00:00 00:00 WBC (4.8-10.8) X10*3/uL RBC (4.20-5.50) X10*6/uL Hgb (12.0-16.0) g/dl Hct (37.0-47.0) % MCV (80.0-98.0) fL MCH (27.0-33.0) pg MCHC (31.0-35.0) g/dl RDW (11.0-16.0) % Plt Count (160-400) X10*3/uL MPV (9.4-12.3) fL Immature Gran % (Auto) (0.0-0.4) % Neut % (Auto) (45-73) % Lymph % (Auto) (20-40) % [place] % (Auto) (2-11) % Eos % (Auto) (0-4) % Baso % (Auto) (0-2) % Lymph # (Auto) (1.2-4.9) X10*3/uL [place] # (Auto) (0.1-1.2) X10*3/uL Eos # (Auto) (0.0-0.4) X10*3/uL Baso # (Auto) (0.0-0.2) X10*3/uL Abs Immat Gran (auto) (0.00-0.03) X10*3/uL Absolute Neuts (auto) (2.0-8.3) x10*3/uL Absolute Nucleated RBC (0.0-0.012) X10*3/uL Nucleated RBC % (auto) (0.0-0.2) /100WBC D-Dimer High Sensitivty 159 NG/ML Sodium (135-145) mmol/L Potassium (3.3-5.1) mmol/L Chloride (96-108) mmol/L Carbon Dioxide (22-29) mmol/L Anion Gap (12-20) BUN (9-16) mg/dL Creatinine (0.5-1.4) mg/dL Estim Creat Clear Calc Estimated GFR Random Glucose (60-115) mg/dL Calcium (8.4-10.2) mg/dL Total Bilirubin (0.0-1.0) mg/dL Direct Bilirubin (0.0-0.5) mg/dL AST (5-31) U/L ALT (0-31) U/L Alkaline Phosphatase (39-117) U/L Total Protein (6.5-8.0) g/dL Albumin (3.5-5.0) g/dL Lipase (8-78) U/L Urine Color Urine Appearance Urine pH (5.0-8.0) Ur Specific [place] (1.005-1.025) Urine Protein (NEG-TRACE) MG/DL Urine Glucose (UA) (NEG) MG/DL Urine Ketones (NEG) MG/DL Urine Blood (NEG) Urine Nitrite (NEG) Ur Leukocyte Esterase (NEG) Urine RBC (0) /HPF Urine WBC (0-4) /HPF Ur Squamous Epith Cells /LPF Urine Bacteria /LPF COVID-19 (AUREA) Positive A (Negative) COVID-19 Clin Com See Note Imaging Data Chest x-ray: Radiologist's impression: IMPRESSION: No acute cardiopulmonary findings. 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 Continue to drink clear liquids as frequently as possible. Quarantine at home for 10 more days. Use acetaminophen for pain. Use ondansetron as needed for nausea. Return for any new or worsened symptoms such as shortness of breath, severe weakness or dizziness, inability to hold down fluids. Prescriptions: New ondansetron 4 mg tablet,disintegrating 4 mg PO Q6H PRN (Reason: nausea and vomiting) Qty: 10 RF: 0 No Action ondansetron HCl [Zofran] 4 mg tablet 4 mg PO Q8H PRN (Reason: nausea and vomiting) 20 Days Qty: 60 RF: 0 fluoxetine 20 mg capsule 20 mg PO DAILY 90 Days Qty: 90 RF: 0 omeprazole 20 mg capsule,delayed release(DR/EC) 40 mg PO DAILY 90 Days Qty: 180 RF: 0 famotidine [Pepcid] 40 mg tablet 40 mg PO BEDTIME 30 Days Qty: 30 RF: 3 Interventions: ED Discharge Assessment Last Done: 11/20/21 02:00 Discharge Date/Time: 11/20/21 02:03
[2021-11-20] MEDS: 0.9 % Sodium Chloride 1,000 ML 999 ML IV (00:08)
[2021-11-20] MEDS: LORazepam 2 MG/ML VIAL 1 MG IVPUSH (00:12)
[2021-11-20 00:15] LABS: D Dimer High Sensitivity 159 NG/ML
[2021-11-20 00:21] LABS: COVID-19 Test Positive (Negative)
== END 2021-11-20 02:03 | disposition home or self-care (01) ==
PROVIDERS: Emergency Medicine Emergency Medical Services; Emergency Provider Emergency Medicine
DX: U07.1 COVID-19 (principal); R11.2 Nausea with vomiting, unspecified; R63.0 Anorexia
CPT/HCPCS: 36415; 71045; 80048; 80076; 81001; 83690; 85025; 85379; 87635; 93005; 96361; 96374; 99284; J2060

== ENCOUNTER 2022-02-04 10:16 | Outpatient (REF) | payer BC, SELFPAY ==
[2022-02-04 15:58] LABS: CT PCR NOT DETECTED (Not Detect.); NG PCR NOT DETECTED (Not Detect.)
[2022-02-05 15:44] LABS: BV Int Neg Control Negative (Negative); BV Int Pos Control Positive (Positive)
== END 2022-02-04 10:17 | disposition home or self-care (01) ==
LOC: HO.LAB 10:16
PROVIDERS: PCP Nurse Practitioner Family; Visit Provider Advanced Practice Midwife
DX: R10.2 Pelvic and perineal pain (principal); N94.10 Unspecified dyspareunia; N89.8 Other specified noninflammatory disorders of vagina; K59.00 Constipation, unspecified; K21.9 Gastro-esophageal reflux disease without esophagitis; Z79.899 Other long term (current) drug therapy
CPT/HCPCS: 81003; 81025; 87480; 87491; 87510; 87591; 87660

== ENCOUNTER 2022-02-18 08:54 | Outpatient (REF) | payer BC, SELFPAY ==
--- NOTE | ~2022-02-18 | US_ITS ---
EXAMINATION: US PELVIS CLINICAL INFORMATION: Pelvic peritoneal pain COMPARISON: Previous pelvic ultrasound October 2021 TECHNIQUE: Ultrasound of the pelvis is performed using both transabdominal and transvaginal transducers along with Doppler. Transvaginal imaging is performed due to inadequate visualization transabdominally. FINDINGS: The uterus is anteverted and measures 9.7 x 3.8 x 5.6 cm in dimension. No focal uterine lesion is seen. Endometrial thickness is normal measuring 1.1 cm. There are small nabothian cysts in the cervix. The right ovary measures 4.5 x 2.3 x 2.4 cm. There is a new 2.4 x 1.5 x 1.9 cm simple right ovarian cyst. The left ovary measures 3.4 x 2.5 x 3 cm. There is a new 2.6 x 1.3 x 2.1 cm minimally complex left ovarian cyst with slightly thickened wall. Additional imaging follow-up is not indicated in a patient of this age according to size criteria. There is no fluid in the pelvis. US/US pelvic and transvaginal IMPRESSION: New small bilateral ovarian cysts.
== END 2022-02-18 08:55 | disposition home or self-care (01) ==
LOC: HO.HMGCX 08:54
PROVIDERS: PCP Nurse Practitioner Family; Visit Provider Advanced Practice Midwife
DX: R10.2 Pelvic and perineal pain (principal)
CPT/HCPCS: 76830; 76856

== ENCOUNTER → 2022-03-04 14:20 | Outpatient (BNVA) | payer BC, SELFPAY | PROVIDERS: PCP Nurse Practitioner Family; Visit Provider Advanced Practice Midwife | DX: Z13.89 Encounter for screening for other disorder (principal) ==

== ENCOUNTER 2022-04-08 11:06 | Outpatient (REF) | payer BC, SELFPAY | END 2022-04-08 11:07 | disposition home or self-care (01) | LOC: HO.LAB 11:06 | PROVIDERS: Visit Provider Obstetrics & Gynecology | DX: R10.2 Pelvic and perineal pain (principal); R35.0 Frequency of micturition; R31.29 Other microscopic hematuria; N93.9 Abnormal uterine and vaginal bleeding, unspecified; N83.299 Other ovarian cyst, unspecified side | CPT/HCPCS: 87086 ==

== ENCOUNTER 2022-04-15 14:25 | Outpatient (REF) | payer BC, SELFPAY ==
--- NOTE | ~2022-04-15 | US_ITS ---
EXAMINATION: US PELVIS CLINICAL INFORMATION: Ovarian cyst. COMPARISON: None TECHNIQUE: Ultrasound of the pelvis is performed using both transabdominal and transvaginal transducers along with Doppler. Transvaginal imaging is performed due to inadequate visualization transabdominally. FINDINGS: Uterus: The uterus is anteverted, anteflexed and measures 9.9 cm in length, 3.7 cm AP, and 5.3 cm in transverse dimension. The double wall endometrial thickness is 1.3 cm. The uterus is smooth in contour and has normal myometrial echogenicity. No visible fibroid. Adnexa: Both ovaries are visualized. There is normal color-flow to the adnexa. There is no ovarian torsion. There is no pelvic ascites or fluid collection. Right ovary measures 9.1 x 2.3 x 2.8 cm and volume 13.8 mL. There is an anechoic simple cyst measuring 1.5 x 1.2 x 1.5 cm. Left ovary measures 2.9 x 2.7 x 2.2 cm and volume 9.0 mL. There is free fluid seen in the cervical canal. US/US pelvic and transvaginal IMPRESSION: Simple anechoic cyst right ovary measuring 1.5 cm. Minimal free fluid seen in the cervical canal. The uterus is unremarkable.
== END 2022-04-15 14:26 | disposition home or self-care (01) ==
LOC: HO.US 14:25
PROVIDERS: Visit Provider Advanced Practice Midwife
DX: N83.299 Other ovarian cyst, unspecified side (principal)
CPT/HCPCS: 76830; 76856

== ENCOUNTER 2022-05-05 13:07 | Outpatient (REF) | payer BC, SELFPAY ==
[2022-05-05 13:49] LABS: Hematocrit 38.5 % (37.0-47.0); Hemoglobin 12.6 g/dl (12.0-16.0); Mean Corpuscular HGB Conc 32.7 g/dl (31.0-35.0); Mean Corpuscular Hemoglobin 30.1 pg (27.0-33.0); Mean Corpuscular Volume 92.1 fL (80.0-98.0); Mean Platelet Volume 10.1 fL (9.4-12.3); Platelet Count 377 X10*3/uL (160-400); Red Blood Count 4.18 X10*6/uL (4.20-5.50); Red Cell Distribution Width 13.2 % (11.0-16.0); White Blood Count 10.5 X10*3/uL (4.8-10.8)
[2022-05-05 14:43] LABS: HCG Quantitative < 2 mIU/mL; TSH reflex Free T4 0.57 uIU/mL (0.32-4.0)
== END 2022-05-05 13:08 | disposition home or self-care (01) ==
LOC: HO.LAB 13:07
PROVIDERS: PCP Nurse Practitioner Family; Visit Provider Obstetrics & Gynecology
DX: N93.9 Abnormal uterine and vaginal bleeding, unspecified (principal); R31.29 Other microscopic hematuria
CPT/HCPCS: 36415; 84443; 84702; 85027

== ENCOUNTER 2022-05-21 10:57 | Outpatient (REF) | payer BC, SELFPAY ==
--- NOTE | ~2022-05-21 | CT_ITS ---
EXAMINATION: CT ABDOMEN AND PELVIS WITHOUT AND WITH CONTRAST CLINICAL INFORMATION: Microscopic hematuria. COMPARISON: None. TECHNIQUE: Multidetector volumetric imaging was performed of the abdomen and pelvis before and after the IV administration of 85 mL of Omnipaque 300 intravenous contrast. Sagittal and coronal reformatted images were obtained on the technologist's workstation. This CT examination was performed using dose optimization techniques as appropriate, variously including the following: *Automated exposure control *Adjustment of mA and/or kV according to patient size (this includes techniques or standardized protocols for targeted exams where dose is matched to indication/reason for exam; i.e. extremities or head) *Use of iterative reconstruction technique DLP: 1206 mGy-cm FINDINGS: LUNG BASES: The visualized lung bases are unremarkable. LIVER, GALLBLADDER, AND BILIARY TREE: The liver is normal in size, shape, and attenuation. No focal hepatic lesion or biliary ductal dilatation is present. The gallbladder is unremarkable with no evidence of radiopaque gallstones, gallbladder wall thickening, or obvious pericholecystic inflammatory changes. PANCREAS: Unremarkable. SPLEEN: Unremarkable. ADRENAL GLANDS: Unremarkable. KIDNEYS AND URETERS: The kidneys are normal in size, shape, and attenuation. There are no radiopaque renal calculi. Postcontrast there are bilateral symmetrical nephrograms with normal cortical thickness and normal cortical medullary distinction. There is good opacification of bilateral kidney pelvis and right ureter without any intraluminal filling defect. The left proximal ureter is opacified and is normal caliber. BLADDER: The bladder is opacified with excreted urine contrast and appears unremarkable. GASTROINTESTINAL TRACT: There is large amount of stool and gas seen throughout the colon without any significant distention. The small bowel loops are normal caliber. Appendix is not visualized. There is no free fluid. The stomach is nondistended. There is no free air or free fluid. ABDOMINAL WALL: Unremarkable. LYMPH NODES: Normal. VASCULAR: Unremarkable. PELVIC VISCERA: The uterus is anteverted and deviated to the left of midline. No adnexal mass or free fluid is seen. OSSEOUS STRUCTURES: Unremarkable. CT/CT abdomen pelvis wo/w con IMPRESSION: No radiographic urolith, hydroureter nephrosis or renal lesion. The bladder is unremarkable. Mild constipation. Fleischner guidelines were followed.
[2022-05-21] MEDS: iohexoL 350 MG/ML 100 ML INFUS..BTL IV (11:51)
== END 2022-05-21 10:58 | disposition home or self-care (01) ==
LOC: HO.CT 10:57
PROVIDERS: PCP Nurse Practitioner Family; Visit Provider Obstetrics & Gynecology
DX: R31.29 Other microscopic hematuria (principal)
CPT/HCPCS: 74178; Q9967

== ENCOUNTER 2022-06-05 09:04 | Outpatient (REF) | payer BC, SELFPAY ==
[2022-06-05 11:54] LABS: Cholesterol 163 mg/dL; HDL Cholesterol 40 mg/dL; LDL Cholesterol Calculated 112 mg/dl; Triglycerides 56 mg/dL
[2022-06-05 11:55] LABS: Appearance Urine CLEAR; Color Urine YELLOW; Glucose Urine UA NEG (NEG); Leukocyte Esterase Urine NEG (NEG); Nitrite Urine NEG (NEG); Specific Gravity - Urine <= 1.005 (1.005-1.025); UACC Culture Trigger NO; Urine Blood 3+ (NEG); Urine Ketones 15 MG/DL (NEG); Urine Protein NEG (NEG-TRACE)
[2022-06-05 12:09] LABS: Bacteria Urine TRACE /LPF; Squamous Epithelial Cell Urine TRACE /LPF
[2022-06-05 12:10] LABS: RBC Urine 30-49 /HPF (0); WBC Urine 0-2 /HPF (0-4)
[2022-06-05 12:17] LABS: TSH reflex Free T4 0.39 uIU/mL (0.32-4.0)
== END 2022-06-05 09:05 | disposition home or self-care (01) ==
LOC: HO.HMGCLDS 09:04
PROVIDERS: Visit Provider Nurse Practitioner Family
DX: R10.13 Epigastric pain (principal)
CPT/HCPCS: 36415; 80061; 81001; 84443

== ENCOUNTER 2022-06-30 12:01 | Outpatient (REF) | payer BC, SELFPAY ==
[2022-06-30 17:33] LABS: Urine Cytology See Pathology rpt
== END 2022-06-30 12:02 | disposition home or self-care (01) ==
LOC: HO.LAB 12:01
DX: R31.9 Hematuria, unspecified (principal)
CPT/HCPCS: 88112

== ENCOUNTER 2022-08-13 13:21 | Outpatient (REF) | payer BC, SELFPAY ==
--- NOTE | ~2022-08-13 | US_ITS ---
EXAMINATION: US RETROPERITONEAL LIMITED (RENAL ONLY) CLINICAL INFORMATION: Other microscopic hematuria. COMPARISON: CT abdomen and pelvis 05/21/2022. Ultrasound abdomen limited 11/13/2021. Ultrasound abdomen complete 10/24/2021. TECHNIQUE: Real-time imaging of the kidneys. FINDINGS: RIGHT KIDNEY: 9.9 x 5.4 x 5.0 cm (SAG x AP x TRV). The kidney is normal in size, contour, and echogenicity. Renal cortical thickness is normal. There is a 9 x 7 x 7 mm cyst in the lower pole. No renal calculi or hydronephrosis. LEFT KIDNEY: 10.3 x 5.3 x 5.5 cm (SAG x AP x TRV). The kidney is normal in size, contour, and echogenicity. Renal cortical thickness is normal. There is a 3 mm echogenic density in the midpole questionable for a stone in the midpole. No focal parenchymal lesions or hydronephrosis. US/US renal BI IMPRESSION: Question small left renal stone. Small right renal cyst.
== END 2022-08-13 13:22 | disposition home or self-care (01) ==
LOC: HO.US 13:21
DX: R31.29 Other microscopic hematuria (principal)
CPT/HCPCS: 76775

== ENCOUNTER → 2022-10-13 09:14 | Outpatient (REF) | payer BC, SELFPAY ==
--- NOTE | 2022-10-13 09:18 | CA_ITS ---
Transthoracic Echocardiogram Patient (Last, First, Middle): Lani Rubio, Gender: Female Date of : 1985 Age: 37 Procedure Date: 10/13/2022 Procedure Type: Transthoracic Echocardiogram Location: OP Height: 147.32 cm Weight: 72.58 kg BSA: 1.66 m2 Heart Rate: 58 bpm BP: 100 / 68 mmHg Automotive Technician Instructor: SB Referring MD: Buzz Blair [facility] Symptoms: R01.1 - Cardiac murmur, unspecified Study Quality: Adequate ECG Rhythm: Bradycardia Conclusions: - The left ventricular systolic function is normal. The calculated ejection fraction is 58% by biplane method. - No obvious valvular pathology seen on this study. Findings Left Ventricle Normal left ventricular cavity size. There is normal left ventricular wall thickness. The left ventricular systolic function is normal. The calculated ejection fraction is 58% by biplane method. There is no evidence of regional wall motion abnormalities. Diastolic function is normal for age. LV peak GLS -22.2%. Right Ventricle Normal right ventricular cavity size and systolic function. Atria Both atria are normal in size. There is no evidence of interatrial shunt by color Doppler. Aortic Valve There is a normal trileaflet aortic valve. There is no aortic valve stenosis. There is no aortic valve regurgitation. Mitral Valve The mitral valve appears normal. There is no mitral valve regurgitation. There is no mitral valve stenosis. Pulmonic Valve The pulmonic valve is likely normal. Tricuspid Valve Normal tricuspid valve structure. There is trace tricuspid valve regurgitation. There is no evidence of pulmonary hypertension. Great Vessels The asc aorta is normal in size. Venous The inferior vena cava is normal in size and collapses greater than 50% with inspiration. Pericardium/Pleural There is no evidence of pericardial effusion. Prior Study Comparison No significant change compared to prior study dated: 05/23/2016. Recommendations, Care & Conclusions No obvious valvular pathology seen on this study. Measurements 2D Linear Measurements IVSd: 0.86 0.6-0.9/0.6-1.0 cm LVIDd: 5.29 3.9-5.3/4.2-5.9 cm LVIDd Index: 3.19 2.4-3.2/2.2-3.1 cm/m2 LVIDs: 3.17 2.0-3.6 cm LVPWd: 0.51 0.7-1.1 cm Ao Root: 2.60 2.1-3.5 cm LA Diam: 3.40 2.7-3.8/3.0-4.0 cm LAIDs Index: 2.05 1.5-2.3 cm/m2 LV Mass: 153.27 67-162/88-224 g LV Mass Index: 92.33 43-95/49-115 g/m2 LVOT Diam: 2.10 3.0+(-)1.3 cm 2D Systolic Function EF 4C: 57.90 >55% EF 2C: 57.10 >55% EF BiP: 57.80 >55% Mitral Valve MV Pk E: 0.92 MV PK A: 0.49 MV Decel Time: 153.00 E/A: 1.90 E'Lateral: 12.80 E'Medial: 9.68 E/E' Med: 9.50 E/E' Lat: 7.20 PHT: 45.00 MVA PHT: 4.89 Decel Alfalfa: 5.98 Aortic Valve AoV Pk Suresh: 1.36 AoV Pk Grad: 7.00 SOFIE: 3.33 LVOT LVOT Pk Suresh: 1.31 LVOT Mn Suresh: 0.95 LVOT VTI: 0.28 LVOT Pk Grad: 7.00 LVOT Mn Grad: 4.00 LVOT Diam: 2.10 LVOT Area: 3.46 Diastolic Function MV Pk E: 0.92 MV Pk A: 0.49 E/A: 1.90 E'Medial: 9.68 E/E' Med: 9.50 E' Laterial: 12.80 E/E' Lat: 7.20 Right Ventricle TAPSE (mm): 24.40 TVS' Suresh: 13.60 Tricuspid Valve TR Pk Suresh: 2.13 TR Pk Grad: 18.00 RA Press: 3.00 RVSP: 21.00 Great Vessels Aorta Ao Root-2D: 2.60 2.0-3.7 cm Ao Asc: 2.80 2.1-3.4 cm Pulmonary Valve PV Pk Suresh: 1.10 Peak PV Grad: 5.00 Updated in Other Vendor System with Status of Final Terrance Avalos MD electronically signed on 10/14/2022 4:03:56 PM with status of Final
== END ==
LOC: HO.CARD 09:14
PROVIDERS: Visit Provider Nurse Practitioner Family
DX: R01.1 Cardiac murmur, unspecified (principal)
CPT/HCPCS: 93306; 93356

== ENCOUNTER 2022-12-30 11:30 | Outpatient (REF) | payer BC, SELFPAY | END 2022-12-30 11:31 | disposition home or self-care (01) | LOC: HO.LNP 11:30 | PROVIDERS: Visit Provider Nurse Practitioner Family | DX: R10.9 Unspecified abdominal pain (principal) | CPT/HCPCS: 87086 ==

== ENCOUNTER 2023-01-11 10:47 | Emergency (ER) | payer BC, SELFPAY ==
--- NOTE | ~2023-01-11 | CT_ITS ---
EXAMINATION: CT HEAD WITHOUT CONTRAST CLINICAL INFORMATION: Posterior headache, tinnitus, left eye blur vision. COMPARISON: None TECHNIQUE: Contiguous axial imaging was performed from the skull base to vertex without intravenous administration of contrast. Additional 2-D coronal and sagittal reformatted images are generated on the CT workstation and uploaded to PACS. This CT examination was performed using dose optimization techniques as appropriate, variously including the following: *Automated exposure control *Adjustment of mA and/or kV according to patient size (this includes techniques or standardized protocols for targeted exams where dose is matched to indication/reason for exam; i.e. extremities or head) *Use of iterative reconstruction technique DLP: 627 mGy-cm FINDINGS: There is no intracranial hemorrhage, hematoma, or extra-axial fluid collection. The ventricles are normal in size. There is no hydrocephalus, edema, or mass effect. The james-white matter differentiation appears well preserved . The orbits and suprasellar cistern are unremarkable. Quadrigeminal cistern are unremarkable. There is no visible acute territorial infarct or mass lesion. The calvarium appears intact. There is no pneumocephalus or orbital emphysema. The visualized sinuses and middle ears and mastoid air cells show no significant mucosal thickening. There are no air-fluid levels. CT/CT head/brain wo IV con IMPRESSION: No acute intracranial abnormality.
[2023-01-11 11:31] VITALS: BP 134/72; PULSE 73; RESP 16; TEMP 37.1; O2SAT 100; BMI 30.2
--- NOTE | 2023-01-11 11:33 | ED.HA ---
HPI - Headache General Chief Complaint: Headache <CHITO Thomas - Last Filed: 01/11/23 11:36> Stated Complaint: Head pressure/Blurry vision <CHITO Thomas - Last Filed: 01/11/23 11:36> Time Seen by Provider: 01/11/23 14:36 <CHITO Thomas - Last Filed: 01/11/23 11:36> Source: patient <CHITO Gray Last Filed: 01/11/23 18:07> Mode of arrival: ambulatory <CHITO Gray - Last Filed: 01/11/23 18:07> History of Present Illness HPI Narrative: 37-year-old female with past medical history anxiety, GERD, presenting to the ED complaining of intermittent left eye blurry vision and floaters x 1 week. Patient reports associated posterior headache worse with palpation, nausea, dizziness, palpitations, hand paresthesias and tinnitus. 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 Patient wears glasses no contacts. Been taking Tylenol without relief. Denies vision loss, vomiting, abdominal pain, weakness. Denies taking anticoagulation. <CHITO Gray - Last Filed: 01/11/23 18:07> MD elicited complaint: headache and migraine <CHITO Gray Last Filed: 01/11/23 18:07> Pertinent past history: migraines <CHITO Gray Last Filed: 01/11/23 18:07> Onset (ago): week(s) <CHITO Gray Last Filed: 01/11/23 18:07> Related Data Home Medications: Previous Rx's Medication Instructions Recorded fluoxetine 20 mg capsule 20 mg PO DAILY 90 days #90 caps 11/13/21 dicyclomine 10 mg capsule 10 mg PO TID #20 caps 12/30/22 nitrofurantoin 100 mg PO BID 5 days #10 caps 01/01/23 monohydrate/macrocrystals 100 mg capsule (Macrobid) <CHITO Thomas Last Filed: 01/11/23 11:36> Allergies/Adverse Reactions: Allergies Allergy/AdvReac Type Severity Reaction Status Date / Time Sulfa (Sulfonamide Allergy Mild UNKNOWN Verified 12/30/22 08:29 Antibiotics) [Sulfa (Sulfonamides)] nitrofurantoin AdvReac Intermediate visual Verified 12/30/22 08:29 [From Macrobid] disturbance. amoxicillin [Augmentin] AdvReac Unknown vomiting Verified 12/30/22 08:29 clavulanic acid [Augmentin] AdvReac Unknown vomiting Verified 12/30/22 08:29 <CHITO Thomas - Last Filed: 01/11/23 11:36> Review of Systems Review of Systems: Constitutional: No Fever, No Chills, No Fatigue, No Malaise ENT/Mouth: No Ear Pain, No Nasal Congestion, No sore throat, No Rhinorrhea, No Swallowing Difficulty Eyes: No Eye Pain, No Swelling, No Redness, No Foreign Body, No Discharge, + Vision Changes Cardiovascular: No Chest Pain, No SOB, No Orthopnea, No Edema, No Palpitations Respiratory: No Cough, No Sputum, No Dyspnea Gastrointestinal: No Nausea, No Vomiting, No Diarrhea, No Constipation, No Abdominal pain Genitourinary: No Dysuria, No Hematuria, No Urinary Incontinence/retention, No Flank Pain Musculoskeletal: No joint pain, No Myalgias, No Joint Swelling Skin: No Skin Lesions, No rash Neuro: No Weakness, No Numbness, + Paresthesias, No Loss of Consciousness, + Dizziness, + Headache <CHITO Gray - Last Filed: 01/11/23 18:07> Yes all other systems are reviewed and are negative <CHITO Gray - Last Filed: 01/11/23 18:07> Constitutional: Constitutional: Reports as per HPI <CHITO Gray - Last Filed: 01/11/23 18:07> Neurologic: Denies Abnormal speech present <CHITO Gray - Last Filed: 01/11/23 18:07> [facility] Past Medical History Attestation statement: The following information was validated with the patient. <CHITO Gray - Last Filed: 01/11/23 18:07> Medical History: Medical History Anxiety Frequent UTI GERD (gastroesophageal reflux disease) <CHITO Thomas - Last Filed: 01/11/23 11:36> Surgical History: Surgical History History of appendectomy History of umbilical hernia repair Hx of bilateral salpingectomy <CHITO Thomas - Last Filed: 01/11/23 11:36> Family History Family History: Family History Mother Lung cancer Maternal Grandmother Breast cancer <CHITO Thomas - Last Filed: 01/11/23 11:36> Social History Social History: Social History Housing: Apartment Alcohol intake: never Patient Tobacco Use Status: Never used Tobacco Smoked in Last 30 Days: No e-Cigarette/Vaping Use: Never Used Second Hand Smoke Exposure: No Use of substances other than those prescribed or required for medical reasons: No Substance Use Type: Marijuana Advance Directives: No Advance Directives Information Provided: Yes Current occupational status: employed Current occupation: [employer] Current occupational exposures/hazards: No Sexual orientation: Straight/Heterosexual Gender identity: Female Cognitive needs: No Hearing needs: No Vision needs: No <CHITO Thomas - Last Filed: 01/11/23 11:36> Physical Exam Vital Signs: Vital Signs: Last Vital Signs Temp 98.8 F 01/11/23 17:13 Pulse 63 01/11/23 17:13 Resp 16 01/11/23 17:13 BP 108/57 L 01/11/23 17:13 Pulse Ox 100 01/11/23 17:13 O2 Del Method 01/11/23 17:13 BMI result Body Mass Index 30.2 <CHITO Thomas - Last Filed: 01/11/23 11:36> Vital Signs: Last Vital Signs Temp 98.8 F 01/11/23 17:13 Pulse 63 01/11/23 17:13 Resp 16 01/11/23 17:13 BP 108/57 L 01/11/23 17:13 Pulse Ox 100 01/11/23 17:13 O2 Del Method 01/11/23 17:13 BMI result Body Mass Index 30.2 <CHITO Gray - Last Filed: 01/11/23 18:07> Const: General: cooperative, healthy appearing and no acute distress <Mary Barreto PA - Last Filed: 01/11/23 18:07> Orientation/consciousness: patient oriented x3 <Mary Barreto PA - Last Filed: 01/11/23 18:07> Limitations: no limitations <Mary Barreto PA - Last Filed: 01/11/23 18:07> HEENT: Head: Yes normal to inspection and Yes atraumatic <Mary Barreto PA - Last Filed: 01/11/23 18:07> Ears: hearing grossly normal bilaterally <Mary Barreto PA - Last Filed: 01/11/23 18:07> General nose exam: Normal external nose present <Mary Barreto PA - Last Filed: 01/11/23 18:07> Face and sinus: Yes normal facial exam <Mary Barreto PA - Last Filed: 01/11/23 18:07> Throat: Yes posterior oropharynx normal, Yes tonsils normal and Yes uvula midline <Mary Barreto PA - Last Filed: 01/11/23 18:07> Eyes: Other: IOP less than 21 bilaterally <Mary Barreto PA - Last Filed: 01/11/23 18:07> General: appearance normal, both eyes and all related structures <Mary Barreto PA - Last Filed: 01/11/23 18:07> Periorbital: periorbital findings normal <Mary Barreto PA - Last Filed: 01/11/23 18:07> Eyelids: Yes eyelids normal <Mary Barreto PA - Last Filed: 01/11/23 18:07> Conjunctivae: conjunctivae normal <Mary Barreto PA - Last Filed: 01/11/23 18:07> Sclerae: sclerae normal <Mary Barreto PA - Last Filed: 01/11/23 18:07> Corneas: corneas normal, corneas abnormal on the left fluorescein used; without abrasions, without dendrites present and with no foreign body noted and fluorescein used <Mary Barreto PA - Last Filed: 01/11/23 18:07> Pupils: Equal, round and reactive pupils present <Mary Barreto PA - Last Filed: 01/11/23 18:07> EOM: EOMs intact bilaterally <Mary Pouldariust, PA - Last Filed: 01/11/23 18:07> Direct Ophthalmoscopy: normal light reflex and no photophobia <Mary Pouldariust, PA - Last Filed: 01/11/23 18:07> Neck: Neck: Yes normal visual inspection and Yes no meningeal signs <Mary Pouldariust, PA - Last Filed: 01/11/23 18:07> Resp: Effort & Inspection: normal respiratory effort and no respiratory distress <Mary Pouliot, PA - Last Filed: 01/11/23 18:07> Auscultation: clear to auscultation bilaterally <Mary Pouldariust, PA - Last Filed: 01/11/23 18:07> Cardio: Rate: regular rate <Mary Pouldariust, PA - Last Filed: 01/11/23 18:07> Heart sounds: S1 normal heart sound present and S2 normal heart sound present <Mary Pouldariust PA - Last Filed: 01/11/23 18:07> GI: Inspection: Yes normal to inspection <Mary Pouldariust, PA - Last Filed: 01/11/23 18:07> Palpation (GI): Soft to palpation, nontender, no guarding and not rigid <Mary Pouldariust, PA - Last Filed: 01/11/23 18:07> : General: Yes no CVA tenderness <Mary Pouldariust, PA - Last Filed: 01/11/23 18:07> Back/Spine/Pelvis: Back: no CVA tenderness <Mary Pouldariust, PA - Last Filed: 01/11/23 18:07> Skin: Rashes: no rashes <Mary Pouldariust, PA - Last Filed: 01/11/23 18:07> Wounds: no wounds <Mary Pouldairust, PA - Last Filed: 01/11/23 18:07> Neuro: General: patient oriented x3, gait normal, tone normal, moves all extremities, no meningeal signs, no focal motor deficits and CN's II-XI intact bilaterally <Mary Pouldariust, PA - Last Filed: 01/11/23 18:07> Cranial nerves: Yes CN's II-XII intact bilaterally, Yes Equal, round and reactive pupils present, Yes Bilaterally intact EOM present and Yes Nystagmus not present <CIHTO Gray - Last Filed: 01/11/23 18:07> Cognition (Neuro): normal cognition <CHITO Gray - Last Filed: 01/11/23 18:07> Speech: No Abnormal speech present <CHITO Gray - Last Filed: 01/11/23 18:07> Gait exam (Neuro): Normal gait present <CHITO Gray - Last Filed: 01/11/23 18:07> Motor exam (neuro): 5/5 motor strength present throughout, Pronator motor function not present and no tremor noted <CHITO Gray - Last Filed: 01/11/23 18:07> Coordination: [id number] test normal <CHITO Gray - Last Filed: 01/11/23 18:07> Romberg Test: Negative <CHITO Gray - Last Filed: 01/11/23 18:07> Extrem: General: Yes normal to inspection <CHITO Gray - Last Filed: 01/11/23 18:07> Course Course Course Narrative: RME - 37 yo female presents to the ER for evaluation of worsening occipital headache for the last 2 days along w/ left eye blurred vision and left sided tinnitus since yesterday. Has been seeing eye doctor for vision changes in the left eye and was dx w/ floaters. Headache is worse with laying flat. Dizzy with movements. Will get CT scan of her head to r/o organic cause. Stable to go back to the waiting room until treatment room is available. <Bee Pichardo PA - Last Filed: 01/11/23 11:36> RME - 37 yo female presents to the ER for evaluation of worsening occipital headache for the last 2 days along w/ left eye blurred vision and left sided tinnitus since yesterday. Has been seeing eye doctor for vision changes in the left eye and was dx w/ floaters. Headache is worse with laying flat. Dizzy with movements. Will get CT scan of her head to r/o organic cause. Stable to go back to the waiting room until treatment room is available. CT head/brain wo IV con IMPRESSION: No acute intracranial abnormality. ? -mild leukocytosis of 11.0. Labs otherwise reassuring. Troponin negative. ESR/CRP WNL. TSH WNL -intra-ocular pressures consistent and within normal limits bilaterally. No fluorescein uptake or corneal abrasion/ulceration > 1807--on re-evaluation patient reports symptomatic improvement, requesting to be discharged home. 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 They verbalized understanding and feel safe for discharge at this time. <CHITO Gray - Last Filed: 01/11/23 18:07> Medications Administered Discontinued Medications Generic Name Dose Route Start Last Admin Trade Name Freq PRN Reason Stop Dose Admin Diphenhydramine HCl 12.5 mg 01/11/23 15:53 01/11/23 16:49 Diphenhydramine Hcl 50 Mg/Ml Vial IVPUSH 01/11/23 15:54 12.5 mg ONCE ONE Administration Sodium Chloride 1,000 mls @ 999 mls/hr 01/11/23 15:45 01/11/23 16:48 Ns IV 01/11/23 16:45 999 mls/hr .Q1H1M ALYSON Administration Ketorolac Tromethamine 15 mg 01/11/23 15:39 01/11/23 16:48 Ketorolac Tromethamine 15 Mg/Ml Vial IVPUSH 01/11/23 15:40 15 mg ONCE ONE Administration Metoclopramide HCl 10 mg 01/11/23 15:39 01/11/23 16:48 Metoclopramide Hcl 10 Mg/2 Ml Vial IVPUSH 01/11/23 15:40 10 mg ONCE ONE Administration <CHITO Thomas - Last Filed: 01/11/23 11:36> Medications Administered Discontinued Medications Generic Name Dose Route Start Last Admin Trade Name Freq PRN Reason Stop Dose Admin Diphenhydramine HCl 12.5 mg 01/11/23 15:53 01/11/23 16:49 Diphenhydramine Hcl 50 Mg/Ml Vial IVPUSH 01/11/23 15:54 12.5 mg ONCE ONE Administration Sodium Chloride 1,000 mls @ 999 mls/hr 01/11/23 15:45 01/11/23 16:48 Ns IV 01/11/23 16:45 999 mls/hr .Q1H1M ALYSON Administration Ketorolac Tromethamine 15 mg 01/11/23 15:39 01/11/23 16:48 Ketorolac Tromethamine 15 Mg/Ml Vial IVPUSH 01/11/23 15:40 15 mg ONCE ONE Administration Metoclopramide HCl 10 mg 01/11/23 15:39 01/11/23 16:48 Metoclopramide Hcl 10 Mg/2 Ml Vial IVPUSH 01/11/23 15:40 10 mg ONCE ONE Administration <CHITO Gray - Last Filed: 01/11/23 18:07> Medical Decision Making Medical Decision Making MDM Narrative: 37-year-old female with past medical history anxiety, GERD, presenting to the ED complaining of intermittent left eye blurry vision and floaters x 1 week. Patient reports associated posterior headache worse with palpation, nausea, dizziness, palpitations, hand paresthesias and tinnitus. On exam vital signs stable, NAD, nontoxic appearing, no focal neuro deficits, ambulating with steady gait. Concern for complicated migraine headache vs ?Giant cell arteritis. Lower suspicion for retinal detachment, or arterial/venous occlusion with intermittent symptoms. Unlikely CVA/TIA. Rule out mass Case discussed with Dr. Persaud who is in agreement with plan Plan: EKG, labs, UA, fluorescein staining, intra-ocular pressure, symptomatic treatment, re-evaluate Please refer to course for remaining clinical decision making, interpretation of labs/imaging results, and discussions with consultants and/or family members. <CHITO Gray - Last Filed: 01/11/23 18:07> Differential Diagnosis Differential Diagnoses: The differential diagnosis associated with the presentation includes <CHITO Gray - Last Filed: 01/11/23 18:07> As above <CHITO Gray - Last Filed: 01/11/23 18:07> Lab Data [facility] Lab Attestation statement: I reviewed the patient's lab results. <CHITO Gray - Last Filed: 01/11/23 18:07> Result Diagrams: 01/11/23 15:43 01/11/23 15:43 <CHITO Thomas - Last Filed: 01/11/23 11:36> Labs: Lab Results 01/11/23 01/11/23 01/11/23 Range/Units 15:43 15:43 15:43 WBC 11.0 H (4.8-10.8) X10*3/uL RBC 4.47 (4.20-5.50) X10*6/uL Hgb 13.2 (12.0-16.0) g/dl Hct 40.6 (37.0-47.0) % MCV 90.8 (80.0-98.0) fL MCH 29.5 (27.0-33.0) pg MCHC 32.5 (31.0-35.0) g/dl RDW 13.0 (11.0-16.0) % Plt Count 377 (160-400) X10*3/uL MPV 9.8 (9.4-12.3) fL Immature Gran % (Auto) 0.4 (0.0-0.4) % Neut % (Auto) 79.6 H (45-73) % Lymph % (Auto) 15.1 L (20-40) % Mcdowell % (Auto) 4.0 (2-11) % Eos % (Auto) 0.4 (0-4) % Baso % (Auto) 0.5 (0-2) % Lymph # (Auto) 1.7 (1.2-4.9) X10*3/uL [place]cdowell # (Auto) 0.4 (0.1-1.2) X10*3/uL Eos # (Auto) 0.0 (0.0-0.4) X10*3/uL Baso # (Auto) 0.1 (0.0-0.2) X10*3/uL Abs Immat Gran (auto) 0.04 H (0.00-0.03) X10*3/uL Absolute Neuts (auto) 8.8 H (2.0-8.3) x10*3/uL Absolute Nucleated RBC 0.000 (0.0-0.012) X10*3/uL Nucleated RBC % (auto) 0.0 (0.0-0.2) /100WBC ESR 5 (0-20) MM/HR Sodium 142 (135-145) mmol/L Potassium 4.5 D (3.3-5.1) mmol/L Chloride 107 (96-108) mmol/L Carbon Dioxide 25 (22-29) mmol/L Anion Gap 15 (12-20) BUN 6 L (9-16) mg/dL Creatinine 0.72 (0.5-1.4) mg/dL Estim Creat Clear Calc 91.5 Estimated GFR > 60 Random Glucose 89 (60-115) mg/dL Calcium 9.8 (8.4-10.2) mg/dL Magnesium 1.8 (1.6-2.6) mg/dL Total Bilirubin 1.1 H (0.0-1.0) mg/dL Direct Bilirubin 0.2 (0.0-0.5) mg/dL AST 14 (5-31) U/L ALT 7 (0-31) U/L Alkaline Phosphatase 42 (39-117) U/L Troponin I High Sens (<3.5-17.0) ng/L C-Reactive Protein < 0.10 (< or = 0.50) mg/dL Total Protein 7.0 (6.5-8.0) g/dL Albumin 4.4 (3.5-5.0) g/dL TSH 0.73 (0.32-4.0) uIU/mL Urine Color Urine Appearance Urine pH (5.0-9.0) Ur Specific [place] (1.005-1.025) Urine Protein (Neg-Trace) mg/dL Urine Glucose (UA) (Negative) mg/dL Urine Ketones (Negative) mg/dL Urine Blood (Negative) Urine Nitrite (Negative) Ur Leukocyte Esterase (Negative) Urine RBC (0-2) /HPF Urine WBC (0-5) /HPF Ur Squamous Epith Cells (0-2) /HPF Urine Bacteria (None Seen) Hyaline Casts (0-2) /LPF Urine Test (NEGATIVE) COVID-19 (AUREA) (Negative) COVID-19 Clin Com Influenza Type A (GINA) (Negative) Influenza Type B (GINA) (Negative) Influenza A & B Note 01/11/23 01/11/23 01/11/23 Range/Units 15:43 15:43 15:43 WBC (4.8-10.8) X10*3/uL RBC (4.20-5.50) X10*6/uL Hgb (12.0-16.0) g/dl Hct (37.0-47.0) % MCV (80.0-98.0) fL MCH (27.0-33.0) pg MCHC (31.0-35.0) g/dl RDW (11.0-16.0) % Plt Count (160-400) X10*3/uL MPV (9.4-12.3) fL Immature Gran % (Auto) (0.0-0.4) % Neut % (Auto) (45-73) % Lymph % (Auto) (20-40) % Mcdowell % (Auto) (2-11) % Eos % (Auto) (0-4) % Baso % (Auto) (0-2) % Lymph # (Auto) (1.2-4.9) X10*3/uL [place]cd[place] # (Auto) (0.1-1.2) X10*3/uL Eos # (Auto) (0.0-0.4) X10*3/uL Baso # (Auto) (0.0-0.2) X10*3/uL Abs Immat Gran (auto) (0.00-0.03) X10*3/uL Absolute Neuts (auto) (2.0-8.3) x10*3/uL Absolute Nucleated RBC (0.0-0.012) X10*3/uL Nucleated RBC % (auto) (0.0-0.2) /100WBC ESR (0-20) MM/HR Sodium (135-145) mmol/L Potassium (3.3-5.1) mmol/L Chloride (96-108) mmol/L Carbon Dioxide (22-29) mmol/L Anion Gap (12-20) BUN (9-16) mg/dL Creatinine (0.5-1.4) mg/dL Estim Creat Clear Calc Estimated GFR Random Glucose (60-115) mg/dL Calcium (8.4-10.2) mg/dL Magnesium (1.6-2.6) mg/dL Total Bilirubin (0.0-1.0) mg/dL Direct Bilirubin (0.0-0.5) mg/dL AST (5-31) U/L ALT (0-31) U/L Alkaline Phosphatase (39-117) U/L Troponin I High Sens < 3.5 (<3.5-17.0) ng/L C-Reactive Protein (< or = 0.50) mg/dL Total Protein (6.5-8.0) g/dL Albumin (3.5-5.0) g/dL TSH (0.32-4.0) uIU/mL Urine Color Yellow Urine Appearance Clear Urine pH 8.5 (5.0-9.0) Ur Specific [place] 1.010 (1.005-1.025) Urine Protein Negative (Neg-Trace) mg/dL Urine Glucose (UA) Negative (Negative) mg/dL Urine Ketones Trace (Negative) mg/dL Urine Blood Moderate (2+) H (Negative) Urine Nitrite Negative (Negative) Ur Leukocyte Esterase Trace H (Negative) Urine RBC >20 H (0-2) /HPF Urine WBC 0-5 (0-5) /HPF Ur Squamous Epith Cells 0-2 (0-2) /HPF Urine Bacteria None Seen (None Seen) Hyaline Casts 0-2 (0-2) /LPF Urine Test NEGATIVE (NEGATIVE) COVID-19 (AUREA) (Negative) COVID-19 Clin Com Influenza Type A (GINA) (Negative) Influenza Type B (GINA) (Negative) Influenza A & B Note 01/11/23 01/11/23 Range/Units 15:55 15:55 WBC (4.8-10.8) X10*3/uL RBC (4.20-5.50) X10*6/uL Hgb (12.0-16.0) g/dl Hct (37.0-47.0) % MCV (80.0-98.0) fL MCH (27.0-33.0) pg MCHC (31.0-35.0) g/dl RDW (11.0-16.0) % Plt Count (160-400) X10*3/uL MPV (9.4-12.3) fL Immature Gran % (Auto) (0.0-0.4) % Neut % (Auto) (45-73) % Lymph % (Auto) (20-40) % Mcdowell % (Auto) (2-11) % Eos % (Auto) (0-4) % Baso % (Auto) (0-2) % Lymph # (Auto) (1.2-4.9) X10*3/uL [place] # (Auto) (0.1-1.2) X10*3/uL Eos # (Auto) (0.0-0.4) X10*3/uL Baso # (Auto) (0.0-0.2) X10*3/uL Abs Immat Gran (auto) (0.00-0.03) X10*3/uL Absolute Neuts (auto) (2.0-8.3) x10*3/uL Absolute Nucleated RBC (0.0-0.012) X10*3/uL Nucleated RBC % (auto) (0.0-0.2) /100WBC ESR (0-20) MM/HR Sodium (135-145) mmol/L Potassium (3.3-5.1) mmol/L Chloride (96-108) mmol/L Carbon Dioxide (22-29) mmol/L Anion Gap (12-20) BUN (9-16) mg/dL Creatinine (0.5-1.4) mg/dL Estim Creat Clear Calc Estimated GFR Random Glucose (60-115) mg/dL Calcium (8.4-10.2) mg/dL Magnesium (1.6-2.6) mg/dL Total Bilirubin (0.0-1.0) mg/dL Direct Bilirubin (0.0-0.5) mg/dL AST (5-31) U/L ALT (0-31) U/L Alkaline Phosphatase (39-117) U/L Troponin I High Sens (<3.5-17.0) ng/L C-Reactive Protein (< or = 0.50) mg/dL Total Protein (6.5-8.0) g/dL Albumin (3.5-5.0) g/dL TSH (0.32-4.0) uIU/mL Urine Color Urine Appearance Urine pH (5.0-9.0) Ur Specific [place] (1.005-1.025) Urine Protein (Neg-Trace) mg/dL Urine Glucose (UA) (Negative) mg/dL Urine Ketones (Negative) mg/dL Urine Blood (Negative) Urine Nitrite (Negative) Ur Leukocyte Esterase (Negative) Urine RBC (0-2) /HPF Urine WBC (0-5) /HPF Ur Squamous Epith Cells (0-2) /HPF Urine Bacteria (None Seen) Hyaline Casts (0-2) /LPF Urine Test (NEGATIVE) COVID-19 (AUREA) Negative (Negative) COVID-19 Clin Com See Note Influenza Type A (GINA) Negative (Negative) Influenza Type B (GINA) Negative (Negative) Influenza A & B Note See Note <CHITO Thomas - Last Filed: 01/11/23 11:36> Lab Results 01/11/23 01/11/23 01/11/23 Range/Units 15:43 15:43 15:43 WBC 11.0 H (4.8-10.8) X10*3/uL RBC 4.47 (4.20-5.50) X10*6/uL Hgb 13.2 (12.0-16.0) g/dl Hct 40.6 (37.0-47.0) % MCV 90.8 (80.0-98.0) fL MCH 29.5 (27.0-33.0) pg MCHC 32.5 (31.0-35.0) g/dl RDW 13.0 (11.0-16.0) % Plt Count 377 (160-400) X10*3/uL MPV 9.8 (9.4-12.3) fL Immature Gran % (Auto) 0.4 (0.0-0.4) % Neut % (Auto) 79.6 H (45-73) % Lymph % (Auto) 15.1 L (20-40) % [place]cdowell % (Auto) 4.0 (2-11) % Eos % (Auto) 0.4 (0-4) % Baso % (Auto) 0.5 (0-2) % Lymph # (Auto) 1.7 (1.2-4.9) X10*3/uL [place] # (Auto) 0.4 (0.1-1.2) X10*3/uL Eos # (Auto) 0.0 (0.0-0.4) X10*3/uL Baso # (Auto) 0.1 (0.0-0.2) X10*3/uL Abs Immat Gran (auto) 0.04 H (0.00-0.03) X10*3/uL Absolute Neuts (auto) 8.8 H (2.0-8.3) x10*3/uL Absolute Nucleated RBC 0.000 (0.0-0.012) X10*3/uL Nucleated RBC % (auto) 0.0 (0.0-0.2) /100WBC ESR 5 (0-20) MM/HR Sodium 142 (135-145) mmol/L Potassium 4.5 D (3.3-5.1) mmol/L Chloride 107 (96-108) mmol/L Carbon Dioxide 25 (22-29) mmol/L Anion Gap 15 (12-20) BUN 6 L (9-16) mg/dL Creatinine 0.72 (0.5-1.4) mg/dL Estim Creat Clear Calc 91.5 Estimated GFR > 60 Random Glucose 89 (60-115) mg/dL Calcium 9.8 (8.4-10.2) mg/dL Magnesium 1.8 (1.6-2.6) mg/dL Total Bilirubin 1.1 H (0.0-1.0) mg/dL Direct Bilirubin 0.2 (0.0-0.5) mg/dL AST 14 (5-31) U/L ALT 7 (0-31) U/L Alkaline Phosphatase 42 (39-117) U/L Troponin I High Sens (<3.5-17.0) ng/L C-Reactive Protein < 0.10 (< or = 0.50) mg/dL Total Protein 7.0 (6.5-8.0) g/dL Albumin 4.4 (3.5-5.0) g/dL TSH 0.73 (0.32-4.0) uIU/mL Urine Color Urine Appearance Urine pH (5.0-9.0) Ur Specific [place] (1.005-1.025) Urine Protein (Neg-Trace) mg/dL Urine Glucose (UA) (Negative) mg/dL Urine Ketones (Negative) mg/dL Urine Blood (Negative) Urine Nitrite (Negative) Ur Leukocyte Esterase (Negative) Urine RBC (0-2) /HPF Urine WBC (0-5) /HPF Ur Squamous Epith Cells (0-2) /HPF Urine Bacteria (None Seen) Hyaline Casts (0-2) /LPF Urine Test (NEGATIVE) COVID-19 (AUREA) (Negative) COVID-19 Clin Com Influenza Type A (GINA) (Negative) Influenza Type B (GINA) (Negative) Influenza A & B Note 01/11/23 01/11/23 01/11/23 Range/Units 15:43 15:43 15:43 WBC (4.8-10.8) X10*3/uL RBC (4.20-5.50) X10*6/uL Hgb (12.0-16.0) g/dl Hct (37.0-47.0) % MCV (80.0-98.0) fL MCH (27.0-33.0) pg MCHC (31.0-35.0) g/dl RDW (11.0-16.0) % Plt Count (160-400) X10*3/uL MPV (9.4-12.3) fL Immature Gran % (Auto) (0.0-0.4) % Neut % (Auto) (45-73) % Lymph % (Auto) (20-40) % [place]cd[place] % (Auto) (2-11) % Eos % (Auto) (0-4) % Baso % (Auto) (0-2) % Lymph # (Auto) (1.2-4.9) X10*3/uL [place] # (Auto) (0.1-1.2) X10*3/uL Eos # (Auto) (0.0-0.4) X10*3/uL Baso # (Auto) (0.0-0.2) X10*3/uL Abs Immat Gran (auto) (0.00-0.03) X10*3/uL Absolute Neuts (auto) (2.0-8.3) x10*3/uL Absolute Nucleated RBC (0.0-0.012) X10*3/uL Nucleated RBC % (auto) (0.0-0.2) /100WBC ESR (0-20) MM/HR Sodium (135-145) mmol/L Potassium (3.3-5.1) mmol/L Chloride (96-108) mmol/L Carbon Dioxide (22-29) mmol/L Anion Gap (12-20) BUN (9-16) mg/dL Creatinine (0.5-1.4) mg/dL Estim Creat Clear Calc Estimated GFR Random Glucose (60-115) mg/dL Calcium (8.4-10.2) mg/dL Magnesium (1.6-2.6) mg/dL Total Bilirubin (0.0-1.0) mg/dL Direct Bilirubin (0.0-0.5) mg/dL AST (5-31) U/L ALT (0-31) U/L Alkaline Phosphatase (39-117) U/L Troponin I High Sens < 3.5 (<3.5-17.0) ng/L C-Reactive Protein (< or = 0.50) mg/dL Total Protein (6.5-8.0) g/dL Albumin (3.5-5.0) g/dL TSH (0.32-4.0) uIU/mL Urine Color Yellow Urine Appearance Clear Urine pH 8.5 (5.0-9.0) Ur Specific [place] 1.010 (1.005-1.025) Urine Protein Negative (Neg-Trace) mg/dL Urine Glucose (UA) Negative (Negative) mg/dL Urine Ketones Trace (Negative) mg/dL Urine Blood Moderate (2+) H (Negative) Urine Nitrite Negative (Negative) Ur Leukocyte Esterase Trace H (Negative) Urine RBC >20 H (0-2) /HPF Urine WBC 0-5 (0-5) /HPF Ur Squamous Epith Cells 0-2 (0-2) /HPF Urine Bacteria None Seen (None Seen) Hyaline Casts 0-2 (0-2) /LPF Urine Test NEGATIVE (NEGATIVE) COVID-19 (AUREA) (Negative) COVID-19 Clin Com Influenza Type A (GINA) (Negative) Influenza Type B (GINA) (Negative) Influenza A & B Note 01/11/23 01/11/23 Range/Units 15:55 15:55 WBC (4.8-10.8) X10*3/uL RBC (4.20-5.50) X10*6/uL Hgb (12.0-16.0) g/dl Hct (37.0-47.0) % MCV (80.0-98.0) fL MCH (27.0-33.0) pg MCHC (31.0-35.0) g/dl RDW (11.0-16.0) % Plt Count (160-400) X10*3/uL MPV (9.4-12.3) fL Immature Gran % (Auto) (0.0-0.4) % Neut % (Auto) (45-73) % Lymph % (Auto) (20-40) % Mcdowell % (Auto) (2-11) % Eos % (Auto) (0-4) % Baso % (Auto) (0-2) % Lymph # (Auto) (1.2-4.9) X10*3/uL Mcdowell # (Auto) (0.1-1.2) X10*3/uL Eos # (Auto) (0.0-0.4) X10*3/uL Baso # (Auto) (0.0-0.2) X10*3/uL Abs Immat Gran (auto) (0.00-0.03) X10*3/uL Absolute Neuts (auto) (2.0-8.3) x10*3/uL Absolute Nucleated RBC (0.0-0.012) X10*3/uL Nucleated RBC % (auto) (0.0-0.2) /100WBC ESR (0-20) MM/HR Sodium (135-145) mmol/L Potassium (3.3-5.1) mmol/L Chloride (96-108) mmol/L Carbon Dioxide (22-29) mmol/L Anion Gap (12-20) BUN (9-16) mg/dL Creatinine (0.5-1.4) mg/dL Estim Creat Clear Calc Estimated GFR Random Glucose (60-115) mg/dL Calcium (8.4-10.2) mg/dL Magnesium (1.6-2.6) mg/dL Total Bilirubin (0.0-1.0) mg/dL Direct Bilirubin (0.0-0.5) mg/dL AST (5-31) U/L ALT (0-31) U/L Alkaline Phosphatase (39-117) U/L Troponin I High Sens (<3.5-17.0) ng/L C-Reactive Protein (< or = 0.50) mg/dL Total Protein (6.5-8.0) g/dL Albumin (3.5-5.0) g/dL TSH (0.32-4.0) uIU/mL Urine Color Urine Appearance Urine pH (5.0-9.0) Ur Specific [place] (1.005-1.025) Urine Protein (Neg-Trace) mg/dL Urine Glucose (UA) (Negative) mg/dL Urine Ketones (Negative) mg/dL Urine Blood (Negative) Urine Nitrite (Negative) Ur Leukocyte Esterase (Negative) Urine RBC (0-2) /HPF Urine WBC (0-5) /HPF Ur Squamous Epith Cells (0-2) /HPF Urine Bacteria (None Seen) Hyaline Casts (0-2) /LPF Urine Test (NEGATIVE) COVID-19 (AUREA) Negative (Negative) COVID-19 Clin Com See Note Influenza Type A (GINA) Negative (Negative) Influenza Type B (GINA) Negative (Negative) Influenza A & B Note See Note <CHITO Gray - Last Filed: 01/11/23 18:07> Independent Interpretation I performed an independent interpretation of an: EKG <CHITO Gray Last Filed: 01/11/23 18:07> Radiology Impression Discussion of test interpretation with radiology: I have reviewed the radiologist's reading. <CHITO Gray - Last Filed: 01/11/23 18:07> External Record Review External record reviewed: Office record, Outpatient record and Prior outpatient labs <CHITO Gray - Last Filed: 01/11/23 18:07> Discharge Plan Discharge Clinical Impression: Complicated migraine <CHITO Thomas - Last Filed: 01/11/23 11:36> Patient Disposition: Home, Self-Care <CHITO Thomas - Last Filed: 01/11/23 11:36> Instructions: Migraine Headache (ED), Ocular Migraine (ED) <CHITO Thomas Last Filed: 01/11/23 11:36> Prescriptions: No Action fluoxetine 20 mg capsule 20 mg PO DAILY 90 Days Qty: 90 0RF nitrofurantoin monohyd/m-cryst [Macrobid] 100 mg capsule 100 mg PO BID 5 Days Qty: 10 0RF Rx Instructions: must administer with a meal/food dicyclomine 10 mg capsule 10 mg PO TID Qty: 20 0RF <CHITO Thomas - Last Filed: 01/11/23 11:36>
--- NOTE | 2023-01-11 11:48 | MHC.EDTECH ---
visual acuity test completed
--- NOTE | 2023-01-11 15:04 | ECG_ITS ---
Test Reason : cp Blood Pressure : / mmHG Vent. Rate : 070 BPM Atrial Rate : 070 BPM P-R Int : 138 ms QRS Dur : 092 ms QT Int : 410 ms P-R-T Axes : 024 024 026 degrees QTc Int : 442 ms Normal sinus rhythm Normal ECG When compared with ECG of 19-NOV-2021 17:46, No significant change was found Referred By: Mary Barreto Electronically Signed By:DMITRIY MARTINEZ
[2023-01-11 15:48] LABS: MANUAL DIFF FLAG NO
[2023-01-11 15:50] LABS: Basophils Absolute Auto 0.1 X10*3/uL (0.0-0.2); Basophils Percent Auto 0.5 % (0-2); Eosinophils Percent Auto 0.4 % (0-4); Hematocrit 40.6 % (37.0-47.0); Hemoglobin 13.2 g/dl (12.0-16.0); Imm Gran Abs Auto 0.04 X10*3/uL (0.00-0.03); Imm Gran Pct Auto 0.4 % (0.0-0.4); Lymphocytes Absolute Auto 1.7 X10*3/uL (1.2-4.9); Lymphocytes Percent Auto 15.1 % (20-40); Mean Corpuscular HGB Conc 32.5 g/dl (31.0-35.0); Mean Corpuscular Hemoglobin 29.5 pg (27.0-33.0); Mean Corpuscular Volume 90.8 fL (80.0-98.0); Mean Platelet Volume 9.8 fL (9.4-12.3); Monocytes Absolute Auto 0.4 X10*3/uL (0.1-1.2); Neutrophils Absolute Auto 8.8 x10*3/uL (2.0-8.3); Neutrophils Percent Auto 79.6 % (45-73); Platelet Count 377 X10*3/uL (160-400); Red Blood Count 4.47 X10*6/uL (4.20-5.50)
[2023-01-11 15:52] LABS: Appearance Urine Clear; Color Urine Yellow; Glucose Urine UA Negative (Negative); Leukocyte Esterase Urine Trace (Negative); Nitrite Urine Negative (Negative); PH 8.5 (5.0-9.0); UMIC TRIGGER UACC YES; Urine Blood Moderate (2+) (Negative); Urine Ketones Trace mg/dL (Negative); Urine Protein Negative (Neg-Trace)
[2023-01-11 15:53] LABS: UPreg QC Valid YES; Urine Pregnancy NEGATIVE (NEGATIVE)
[2023-01-11 15:57] LABS: Bacteria Urine None Seen (None Seen); Hyaline Casts Urine 0-2 /LPF (0-2); RBC Urine >20 /HPF (0-2); Squamous Epithelial Cell Urine 0-2 /HPF (0-2); WBC Urine 0-5 /HPF (0-5)
[2023-01-11 16:10] LABS: Troponin-I High Sensitivity < 3.5 ng/L (<3.5-17.0)
[2023-01-11 16:15] LABS: Alanine Aminotransferase 7 U/L (0-31); Albumin Level 4.4 g/dL (3.5-5.0); Alkaline Phosphatase 42 U/L (39-117); Anion Gap 15 (12-20); Aspartate Amino Transferase 14 U/L (5-31); Bilirubin Direct 0.2 mg/dL (0.0-0.5); Bilirubin Total 1.1 mg/dL (0.0-1.0); Blood Urea Nitrogen 6 mg/dL (9-16); C Reactive Protein < 0.10 mg/dL (< or = 0.50); Calcium 9.8 mg/dL (8.4-10.2); Carbon Dioxide 25 mmol/L (22-29); Chloride 107 mmol/L (96-108); Creatinine Clr Calc Pharmacy 91.5; Estimated Glomerular Filt Rate > 60; Glucose Random 89 mg/dL (60-115); Magnesium 1.8 mg/dL (1.6-2.6); Potassium 4.5 mmol/L (3.3-5.1); Sodium 142 mmol/L (135-145)
[2023-01-11 16:20] LABS: COVID-19 Test Negative (Negative); IDNOW Serial# 6674DD1D
[2023-01-11 16:21] LABS: IDNOW Serial# BCCEAD1C; Influenza A Negative (Negative); Influenza B2 Negative (Negative)
[2023-01-11 16:29] LABS: TSH reflex Free T4 0.73 uIU/mL (0.32-4.0)
[2023-01-11 16:32] LABS: Erythrocyte Sedimentation Rate 5 MM/HR (0-20)
[2023-01-11] MEDS: 0.9 % Sodium Chloride 1,000 ML 999 ML IV (16:48)
[2023-01-11] MEDS: Ketorolac Tromethamine 15 MG/ML VIAL IVPUSH (16:48)
[2023-01-11] MEDS: Metoclopramide HCl 10 MG/2 ML VIAL IVPUSH (16:48)
[2023-01-11] MEDS: diphenhydrAMINE HCL 50 MG/ML VIAL 12.5 MG IVPUSH (16:49)
[2023-01-11 17:13] VITALS: BP 108/57; PULSE 63; RESP 16; TEMP 37.1; O2SAT 100
[2023-01-11] MEDS: Fluorescein Sodium STRIP 1 STRIP EYE-LEFT (18:11)
[2023-01-11] MEDS: Tetracaine HCl/PF 0.5% Oph Sol 4 ML DROPS 3 DROP EYE-LEFT (18:11)
[2023-01-11 18:45] VITALS: BP 113/52; PULSE 69; RESP 17; TEMP 37.5; O2SAT 99
== END 2023-01-11 19:13 | disposition home or self-care (01) ==
PROVIDERS: Physician Assistant; Emergency Provider Emergency Medicine; PCP Nurse Practitioner Family
DX: G43.909 Migraine, unspecified, not intractable, without status migrainosus (principal); H53.8 Other visual disturbances; Z20.822 Contact with and (suspected) exposure to COVID-19; Z20.828 Contact with and (suspected) exposure to other viral communicable diseases; Z79.899 Other long term (current) drug therapy
CPT/HCPCS: 36415; 70450; 80048; 80076; 81001; 81025; 83735; 84443; 84484; 85025; 85652; 86140; 87502; 87635; 93005; 96361; 96374; 96375; 99284; J1200; J1885; J2765

== ENCOUNTER 2023-02-04 14:13 | Outpatient (REF) | payer BC, SELFPAY ==
[2023-02-04 16:21] LABS: Urine Cytology See Pathology rpt
== END 2023-02-04 14:14 | disposition home or self-care (01) ==
LOC: HO.LAB 14:13
PROVIDERS: PCP Nurse Practitioner Family; Visit Provider Nurse Practitioner Family
DX: R31.29 Other microscopic hematuria (principal); R10.2 Pelvic and perineal pain
CPT/HCPCS: 87086; 88112

== ENCOUNTER 2023-02-24 14:22 | Outpatient (REF) | payer BC, SELFPAY ==
[2023-02-24 16:30] LABS: Blood Urea Nitrogen 6 mg/dL (9-16); Estimated Glomerular Filt Rate > 60
== END 2023-02-24 14:23 | disposition home or self-care (01) ==
LOC: HO.LAB 14:22
PROVIDERS: PCP Nurse Practitioner Family; Visit Provider Nurse Practitioner Family
DX: R31.29 Other microscopic hematuria (principal)
CPT/HCPCS: 36415; 82565; 84520

== ENCOUNTER 2023-03-03 15:23 | Outpatient (REF) | payer BC, SELFPAY ==
--- NOTE | ~2023-03-03 | CT_ITS ---
EXAMINATION: CT ABDOMEN AND PELVIS WITHOUT AND WITH CONTRAST CLINICAL INFORMATION: Microscopic hematuria COMPARISON: Renal ultrasound July [address] of the abdomen and pelvis April 2022 TECHNIQUE: Noncontrast CT of the abdomen and pelvis is performed followed by split bolus contrast-enhanced images using 85 mL Omnipaque 350 contrast.? Postcontrast imaging is performed during the combined nephrogram and excretion phase. Sagittal and coronal reformatted images were obtained on the technologist's workstation for both the precontrast and postcontrast phases. This CT examination was performed using dose optimization techniques as appropriate, variously including the following: *Automated exposure control *Adjustment of mA and/or kV according to patient size (this includes techniques or standardized protocols for targeted exams where dose is matched to indication/reason for exam; i.e. extremities or head) *Use of iterative reconstruction technique DLP: 765 mGy-cm FINDINGS: LUNG BASES: The visualized lung bases are unremarkable. LIVER, GALLBLADDER, AND BILIARY TREE: The liver is normal in size, shape, and attenuation. No focal hepatic lesion or biliary ductal dilatation is present. The gallbladder is unremarkable with no evidence of radiopaque gallstones, gallbladder wall thickening, or obvious pericholecystic inflammatory changes. PANCREAS: Unremarkable. SPLEEN: Unremarkable. ADRENAL GLANDS: Unremarkable. KIDNEYS AND URETERS: The kidneys are normal in size, shape, and attenuation. No hydronephrosis, hydroureter, or calculi seen. No perinephric stranding. Small cysts in the lower pole the right kidney measuring less than 1 cm. No imaging follow-up recommended. The collecting systems are normal. The ureters are normal. BLADDER: Unremarkable. GASTROINTESTINAL TRACT: The small and large bowel are unremarkable. The appendix is not seen. No inflammatory changes in the right lower quadrant. ABDOMINAL WALL: No significant hernia is appreciated. Postsurgical changes left groin. LYMPH NODES: Normal. VASCULAR: Unremarkable. PELVIC VISCERA: Unremarkable. OSSEUS STRUCTURES: Unremarkable. CT/CT urogram IMPRESSION: No cause of hematuria seen.
[2023-03-03] MEDS: iohexoL 350 MG/ML 100 ML INFUS..BTL 85 ML IV (16:05)
== END 2023-03-03 15:24 | disposition home or self-care (01) ==
LOC: HO.CT 15:23
PROVIDERS: PCP Nurse Practitioner Family; Visit Provider Nurse Practitioner Family
DX: R31.29 Other microscopic hematuria (principal)
CPT/HCPCS: 74178; Q9967

== ENCOUNTER 2023-05-10 14:32 | Outpatient (AMB) | payer BC, SELFPAY ==
--- NOTE | 2023-05-10 14:37 | A.OFFVIS_ITS ---
Intake Intake Visit Reasons: cysto/CT Intake Note: Patient presents today for a CYSTO Procedure * Meds: None * Antibiotic: Sulfa, Amoxicillin & Macrobid * Blood Thinner: None * Urinalysis test cleared for Cysto Disposible Uro-G Cystoscope Cannula * Lot: [id number] * Exp: 04/15/2025 Solder Cream Maker Required: No Allergies Sulfa (Sulfonamide Antibiotics) [Sulfa (Sulfonamides)] Allergy (Mild, Verified 02/23/23 09:42) UNKNOWN nitrofurantoin [From Macrobid] Adverse Reaction (Intermediate, Verified 02/23/23 09:42) visual disturbance. amoxicillin [Augmentin] Adverse Reaction (Unknown, Verified 02/23/23 09:42) vomiting clavulanic acid [Augmentin] Adverse Reaction (Unknown, Verified 02/23/23 09:42) vomiting HPI HPI Comments History of Present Illness Details Lani is a 37-year-old female who presents to the office for cystoscopy procedure. She is being evaluated for microscopic hematuria. The patient was seen last on 02/04/23 by ALEJANDRA Cooper. During the discussion she states that she has been told that there was microscopic hematuria on other visits. However, she did not have a full urology evaluation in the past. She is status post CT urogram and here in for cystoscopy. Urine for cytology was sent during the previous visit. The patient has complained of urinary frequency with intermittent lower abdominal pelvic pain. 05/10/23-- She states that about once a month she gets bladder pressure and urgency and lasts for 1-2 days and then the symptoms resolves. She states that when she has had these symptoms she has gone to her doctor to check for UTI and she was told that she does not have bacteria in the urine or active UTI. States that during the time of bladder pressure episode she uses bathroom frequently. States consuming adequate amount of water. The patient smokes marijuana. States the bladder pressure symptom affects her libido. The patient is following-up with [facility] for endometrial cyst. CT urogram--03/03/23-- essentially within normal limits. Urine cytology--collected 02/04/23--Negative for malignancy. Evaluation today-- Blood: 200 Efren/uL, leukocytes: negative. Cystoscopy findings-- Mild trabeculations and mild inflammatory changes consistent with cystitis with prominent vasculature, no suspicious lesions seen. Plan: Levsin 0.125 mg sublingual TID PRN was ordered. Follow-up with [facility] after 4 months. [facility] Medical History Anxiety Frequent UTI GERD (gastroesophageal reflux disease) Surgical History History of appendectomy History of umbilical hernia repair Hx of bilateral salpingectomy Family History Mother Lung cancer Maternal Grandmother Breast cancer Social History Housing: Apartment Alcohol intake: never Patient Tobacco Use Status: Never used Tobacco e-Cigarette/Vaping Use: Never Used Second Hand Smoke Exposure: No Substance Use Type: Marijuana Current occupational status: employed Current occupation: [employer] Current occupational exposures/hazards: No Sexual orientation: Straight/Heterosexual Gender identity: Female Cognitive needs: No Hearing needs: No Vision needs: No Female Reproductive History Menstrual Age of Menarche: 12 Review of Systems Const All systems reviewed & are unremarkable except as noted in HPI and below Reports no additional complaints Eyes Reports no additional complaints ENT Reports no additional complaints Card Denies dyspnea Resp Denies cough and Denies dyspnea GI Reports no additional complaints Reports no additional complaints Musc Reports no additional complaints Skin/Breast Denies rash and Denies unusual bruising Neuro Reports no additional complaints Psych Reports no additional complaints Endo Reports no additional complaints Anthony/Lymph Reports no additional complaints Aller/Immun Reports no additional complaints Physical Exam Const General: cooperative, healthy appearing and no acute distress Orientation/consciousness: patient oriented x3 HEENT Head: Yes normal to inspection, Yes normocephalic and Yes atraumatic Eyes Conjunctivae: conjunctivae normal Neck Neck: Yes normal visual inspection and Yes trachea midline Chest Chest palpation & inspection: normal inspection of the chest Resp Effort & Inspection: normal respiratory effort Cardio Rate: regular rate GI Inspection: Yes normal to inspection Palpation (GI): Soft to palpation General: No no CVA tenderness External Female Exam: normal external appearance Back/Spine/Pelvis Back: No no CVA tenderness Skin General skin exam: no rashes or lesions noted Neuro General: patient oriented x3 Extrem General: No edema Psych Appearance: grossly normal Office Procedures Cystoscopy Consent Discussed risk and benefit or proposed procedure with the patient. Information consent for procedure given to the patient. Discussed technical aspects, risks, benefits and alternatives in full. Addressed all of the patient's questions and concerns regarding the procedure. The patient demonstrated knowledge and understanding. They wish to proceed with this procedure. Preparation The patient was prepped in the usual manner. A customer support associate was present and in the room. Genitalia was prepped with betadine solution in a sterile manner. Lidocaine Jelly 2% was placed into the urethra and 16Fr flexible Olympus cystoscope was inserted into the meatus after adequate lubrication. Procedure Time out per protocol performed. Bladder Inspection Bladder Inspection: The bladder was inspected in its entirety with utilization retroflexion displaying: Tumor(s): None visualized Trabeculation: mild Mucosal Erthema: Orifices: normal shape and position Urethra: normal Cystoscopy findings: no suspicious bladder lesions visualized [id number] DISPOSABLE SCOPE URO-G FLEXIBLE SCOPE Procedure code (CPT) selection complete Office Meds lidocaine HCl Performing Provider: Luis Mckeon MD Administered by: Delfina Tobar RN on 05/10/23 14:51 Dose Route Admin Location Lot Number Expiration Date NDC Waterproofer Helper 10 mL intra-urethral naproxen Performing Provider: Luis Mckeon MD Administered by: Delfina Tobar RN on 05/10/23 14:51 Dose Route Admin Location Lot Number Expiration Date NDC Waterproofer Helper 500 mg PO ciprofloxacin HCl Performing Provider: Luis Mckeon MD Administered by: Delfina Tobar RN on 05/10/23 14:51 Dose Route Admin Location Lot Number Expiration Date NDC Waterproofer Helper 500 mg PO Results AMB Urinalysis, Automated UA Leukoctes 0 Danna/uL Last Edit by CAROLYN Ly on 05/10/23 14:47 UA Nitrite Negative Last Edit by CAROLYN Ly on 05/10/23 14:47 UA Urobilinogen 0.2 mg/dL Last Edit by Radha Moreira [facility] on 05/10/23 14:4 7 UA Protein 0 mg/dL Last Edit by Radha Moreira [facility] on 05/10/23 14:47 UA pH 6.0 Last Edit by Radha Moreira [facility] on 05/10/23 14:47 UA Blood 200 Efren/uL Last Edit by Radha Moreira [facility] on 05/10/23 14:47 3+ Radha Moreira 05/10/23 14:47 UA Specific [place] 1.030 Last Edit by Radha Moreira [facility] on 05/10/23 14: 47 UA Ketone Negative Last Edit by Radha Moreira [facility] on 05/10/23 14:47 UA Bilirubin 0 mg/dL Last Edit by Radha Moreira Jose Elias on 05/10/23 14:47 UA Glucose 0 mg/dL Last Edit by Radha Moreira [facility] on 05/10/23 14:47 Results Reviewed Results Reviewed: Laboratory Last Values Urine pH (Auto) 6.0 05/10/23 14:43 Specific [place] (Auto) 1.030 05/10/23 14:43 Urine Protein (Auto) 0 mg/dL 05/10/23 14:43 Glucose (UA)(Auto) 0 mg/dL 05/10/23 14:43 Urine Ketones (Auto) Negative 05/10/23 14:43 Urine Blood (Auto) 200 Efren/uL 05/10/23 14:43 Urine Nitrite (Auto) Negative 05/10/23 14:43 Urine Bilirubin (Auto) 0 mg/dL 05/10/23 14:43 Urine Urobilinogen (Auto) 0.2 mg/dL 05/10/23 14:43 Leukocyte Esterase (Auto) 0 Danna/uL 05/10/23 14:43 Date of Service: 03/03/23 EXAMINATION: CT ABDOMEN AND PELVIS WITHOUT AND WITH CONTRAST? CLINICAL INFORMATION: Microscopic hematuria? COMPARISON: Renal ultrasound July [address] of the abdomen and pelvis April 2022? ? TECHNIQUE: Noncontrast CT of the abdomen and pelvis is performed followed by split bolus contrast-enhanced images using 85 mL Omnipaque 350 contrast.? Postcontrast imaging is performed during the combined nephrogram and excretion phase. Sagittal and coronal reformatted images were obtained on the technologist's workstation for both the precontrast and postcontrast phases. This CT examination was performed using dose optimization techniques as appropriate, variously including the following: *Automated exposure control *Adjustment of mA and/or kV according to patient size (this includes techniques or standardized protocols for targeted exams where dose is matched to indication/reason for exam; i.e. extremities or head) *Use of iterative reconstruction technique DLP: 765 mGy-cm FINDINGS: LUNG BASES: The visualized lung bases are unremarkable.? LIVER, GALLBLADDER, AND BILIARY TREE: The liver is normal in size, shape, and attenuation. No focal hepatic lesion or biliary ductal dilatation is present. The gallbladder is unremarkable with no evidence of radiopaque gallstones, gallbladder wall thickening, or obvious pericholecystic inflammatory changes.? PANCREAS: Unremarkable.? SPLEEN: Unremarkable.? ADRENAL GLANDS: Unremarkable.? KIDNEYS AND URETERS: The kidneys are normal in size, shape, and attenuation. No hydronephrosis, hydroureter, or calculi seen. No perinephric stranding. Small cysts in the lower pole the right kidney measuring less than 1 cm. No imaging follow-up recommended. The collecting systems are normal. The ureters are normal. BLADDER: Unremarkable.? GASTROINTESTINAL TRACT: The small and large bowel are unremarkable. The appendix is not seen. No inflammatory changes in the right lower quadrant. ABDOMINAL WALL: No significant hernia is appreciated. Postsurgical changes left groin. LYMPH NODES: Normal. VASCULAR: Unremarkable. PELVIC VISCERA: Unremarkable.? OSSEUS STRUCTURES: Unremarkable.? IMPRESSION: No cause of hematuria seen. Collected: 02/04/23 Received: 02/05/23 Diagnosis Urine:? Negative for high-grade urothelial carcinoma.? See comment. COMMENT: Cellular specimen consisting of rare single urothelial cells, squamous cells, red blood cells and few mixed inflammatory cells. Clinical History Microscopic hematuria Material Received Urine Gross Description 7 cc slightly cloudy yellow fluid ? Assessment & Plan Assessment & Plan (1) Cystitis: Code(s): N30.90 - Cystitis, unspecified without hematuria (2) Bladder spasm: Code(s): N32.89 - Other specified disorders of bladder (3) Sensation of pressure in bladder area: Code(s): R39.89 - Other symptoms and signs involving the genitourinary system Plan Levsin 0.125 mg sublingual TID PRN was ordered. Follow-up with [facility] after 4 months. Orders: Orders AMB Cystoscopy 05/10/23 R35.0 - Frequency of micturition AMB Urinalysis Automated 05/10/23 Z13.9 - Encounter for screening, unspecified Medications: New hyoscyamine sulfate (Levsin/SL) 0.125 mg PO TID PRN 60 tabs 3RF dyspepsia Patient Instructions: The patient had an opportunity to ask questions regarding treatment plan. All questions were answered. Imaging, Laboratory studies and physical exam results were discussed and reviewed in detail. No major barriers to understanding were identified. The patient expressed understanding and agreement with the above treatment plan. The patient is aware they should contact our office by phone for worsening of their current condition or the appearance of new symptoms. Compliance is encouraged with any medications and followup testing that is ordered. It is a privilege to be allowed the opportunity to participate in the urologic care of your patient. If you have any questions or concerns regarding treatment for the above conditions please do not hesitate to contact me. The office telephone contact is [phone]. This note is constructed in part using voice recognition software. While every effort has been made to ensure accuracy mortgage collector errors may have been included. Yours sincerely, Luis Mckeon MD Coding Level of Care Code Est Pt Level 3 (60488) Diagnoses Cystitis N30.90 Bladder spasm N32.89 Sensation of pressure in bladder area R39.89 CPT Codes Cystoscopy - CPT: 91497-Yccsblwude ([id number]) Cystoscopy - CPT: DISPOSABLE SCOPE URO-G FLEXIBLE SCOPE ([id number])
== END 2023-05-10 15:30 | disposition home or self-care (01) ==
LOC: HO.HUSH 14:32
PROVIDERS: PCP Nurse Practitioner Family; Visit Provider Urology
DX: N30.90 Cystitis, unspecified without hematuria (principal); N32.89 Other specified disorders of bladder; R39.89 Other symptoms and signs involving the genitourinary system; R35.0 Frequency of micturition
CPT/HCPCS: 52000; 99213

== ENCOUNTER → 2023-05-10 14:32 | Outpatient (BNVA) | payer BC, SELFPAY | PROVIDERS: PCP Nurse Practitioner Family; Visit Provider Urology | DX: N30.90 Cystitis, unspecified without hematuria (principal); N32.89 Other specified disorders of bladder; R39.89 Other symptoms and signs involving the genitourinary system | CPT/HCPCS: 52000; C1747 ==

== ENCOUNTER 2023-08-31 11:16 | Outpatient (AMB) | payer BC, SELFPAY ==
--- NOTE | 2023-08-31 11:24 | MHC.PC.OV ---
Vital Signs 08/31/23 11:25 Height 4 ft 11 in Weight 157 lb 8 oz BMI 31.8 BP 110/74 Blood Pressure Location Rt brachial Position Sitting Pulse 65 Pulse Source Pulse Oximeter Pulse Oximetry (%) 99 Oxygen Delivery Method Room Air Intake Visit Reasons: annual pe Allergies Sulfa (Sulfonamide Antibiotics) [Sulfa (Sulfonamides)] Allergy (Mild, Verified 08/31/23 11:27) UNKNOWN nitrofurantoin [From Macrobid] Adverse Reaction (Intermediate, Verified 08/31/23 11:27) visual disturbance. amoxicillin [Augmentin] Adverse Reaction (Unknown, Verified 08/31/23 11:27) vomiting clavulanic acid [Augmentin] Adverse Reaction (Unknown, Verified 08/31/23 11:27) vomiting Tobacco use date assessed: 08/31/23 Dental Screening Dental Screen Date: 08/31/23 Did you have a dental visit in the last 12 months?: Yes Did you have a dental problem in the last 6 months where you did not have access to dental care?: No Was dental information given to patient?: Patient has dentist HPI annual pe HPI Details Pt is here for a PE. Will order labs. 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 [facility] Medical History Anxiety Frequent UTI GERD (gastroesophageal reflux disease) Surgical History Hx of bilateral salpingectomy History of umbilical hernia repair History of appendectomy Family History Mother Lung cancer Maternal Grandmother Breast cancer Social History Housing: Apartment Alcohol intake: never Patient Tobacco Use Status: Never used Tobacco e-Cigarette/Vaping Use: Never Used Second Hand Smoke Exposure: No Substance Use Type: Marijuana Current occupational status: employed Current occupation: [employer] Current occupational exposures/hazards: No Sexual orientation: Straight/Heterosexual Gender identity: Female Cognitive needs: No Hearing needs: No Vision needs: No Female Reproductive History Menstrual Age of Menarche: 12 Questionnaire Thrive Questionnaire Date Thrive assessed: 08/26/22 JEFFREY-7 AMB Questionnaire JEFFREY-7 Date JEFFREY - 7 assessed: 08/26/22 Source: Developed by Drs. Arnav Mendoza, Perlita Lama, Jose Rafael Abreu and colleagues, with an educational shakeel from [employer]. Review of Systems Const Denies chills and Denies fever(s) Eyes Denies blurry vision ENT Denies vertigo, Denies dizziness and Denies sore throat Card Denies chest pain at rest, Denies chest pain with activity, Denies diaphoresis, Denies dyspnea and Denies dyspnea on exertion Resp Denies cough, Denies dyspnea, Denies dyspnea on exertion and Denies wheezing GI Denies abdominal pain, Denies melena, Denies hematochezia, Denies constipation, Denies diarrhea and Denies loose stools Denies hematuria Musc Denies numbness and Denies tingling Skin/Breast Denies lesions Neuro Denies vertigo, Denies dizziness, Denies numbness and Denies tingling Psych Denies anxiety, Denies depression, Denies homicidal ideation, Denies suicidal ideation and Denies other (substance abuse) Aller/Immun Denies wheezing Physical exam (Primary Care) Vital Signs: Last Vital Signs Pulse 65 08/31/23 11:25 BP 110/74 08/31/23 11:25 Pulse Ox 99 08/31/23 11:25 Oxygen Delivery Method Room Air 08/31/23 11:25 BMI result Body Mass Index 31.8 Tobacco/Smoking Status: Tobacco use Status Tobacco use date assessed 08/31/23 08/31/23 11:29 Patient Tobacco Use Status Never used Tobacco 08/31/23 11:29 e-Cigarette/Vaping Use Never Used 08/31/23 11:29 Thrive Assessment: Date of Thrive Assessment Date Thrive assessed 08/26/22 08/31/23 11:29 Const General: cooperative Nutritional Appearance: well nourished Orientation/consciousness: patient oriented x3 HENMT Head: Yes normal to inspection, Yes normocephalic and Yes atraumatic Ears: TM's normal bilaterally Eyes General: appearance normal, both eyes and all related structures Alignment and Position: alignment normal and position normal Neck Neck: Yes normal visual inspection and Yes no lymphadenopathy Thyroid: Thyroid normal Resp Effort & Inspection: normal respiratory effort Auscultation: clear to auscultation bilaterally Cardio Rate: regular rate Rhythm: regular rhythm Heart sounds: S1 normal heart sound present, S2 normal heart sound present and Murmur heart sound present systolic GI Palpation (GI): Soft to palpation and nontender Auscultation: normal bowel sounds Skin Rashes: no rashes Neuro General: patient oriented x3, moves all extremities, no focal motor deficits and deep tendon reflexes 2+ bilaterally Romberg Test: Negative Psych Appearance: grossly normal Mental Status: mental status grossly normal Speech and movement: Normal speech and movement present Affect: normal affect Attitude: cooperative Thought process: Normal thought process present Thought content: Normal thought content present Insight: Good insight present (Psych) Judgement: Good judgement present (Psych) Assessment and Plan Assessment & Plan (1) Physical exam: Code(s): Z. - Encounter for general adult medical examination without abnormal findings Plan: Labs ordered Plan The patient agreed to the use of a clinical medical transcriptionist for this encounter. Scribed for JOSE MANUEL Greenwood by Beryl Jenkins clinical medical transcriptionist, on 08/31/2023 at 11:35 EST Orders: Orders TSH reflex Free T4 Today Z00.00 - Encounter for general adult medical examination without abnormal findings Complete Blood Count Auto Diff Today Z00.00 - Encounter for general adult medical examination without abnormal findings Comprehensive [place]. Panel Fast Today Z00.00 - Encounter for general adult medical examination without abnormal findings UA CC w/rflx Micro + Cult Today Z00.00 - Encounter for general adult medical examination without abnormal findings Lipid Panel Today Z00.00 - Encounter for general adult medical examination without abnormal findings Coding Level of Care Code Est Pt Prev Care 18-39y(83146) Diagnoses Physical exam Z00.00
[2023-08-31 11:25] VITALS: BP 110/74; PULSE 65; O2SAT 99; BMI 31.8
== END 2023-08-31 11:56 | disposition home or self-care (01) ==
PROVIDERS: Visit Provider Nurse Practitioner Family
DX: Z00.00 Encounter for general adult medical examination without abnormal findings (principal)
CPT/HCPCS: 99395

== ENCOUNTER 2023-09-29 08:10 | Outpatient (AMB) | payer BC, SELFPAY ==
--- NOTE | 2023-09-29 08:53 | AM.OFFWIN_ITS ---
Intake Vital Signs 09/29/23 08:55 Height 4 ft 11 in Weight 157 lb BMI 31.7 BP 130/78 Blood Pressure Location Lt brachial Position Sitting Pulse 71 Pulse Source Pulse Oximeter Temp 97.7 F Temp Source Temporal Artery Scan Pulse Oximetry (%) 99 Oxygen Delivery Method Room Air Intake Visit Reasons: EST/sore throat (lobby masked) Intake Note: Pt is here c/o sore throat for the past 24 hours. Pt states her son tested positive last week. Patient Tobacco Use Status: Never used Tobacco Allergies Sulfa (Sulfonamide Antibiotics) [Sulfa (Sulfonamides)] Allergy (Mild, Verified 09/29/23 08:54) UNKNOWN nitrofurantoin [From Macrobid] Adverse Reaction (Intermediate, Verified 09/29/23 08:54) visual disturbance. amoxicillin [Augmentin] Adverse Reaction (Unknown, Verified 09/29/23 08:54) vomiting clavulanic acid [Augmentin] Adverse Reaction (Unknown, Verified 09/29/23 08:54) vomiting Do you need a note to return to daycare/school/sports/work: No HPI HPI Comments History of Present Illness Details patient is a 38-year-old female in today for a sick visit. Patient states for the past 1 day she is felt like she has been swallowing razors every time she swallows. she has a son at home who just recently tested positive for strep. Patient is denying chest pain, shortness of breath, and dizziness. She is offering sinus tenderness, headache, sore throat, muscle aches. Patient has gotten some relief with Tylenol. Patient's head is normocephalic, TMs are visible intact and pearly james, external ears are normal, no mastoid tenderness. Septum is midline with clear nasal discharge. Patient has maxillary sinus tenderness. Pharynx has erythema is cobblestoned. Trachea is midline. Patient has full range of motion of neck. No lymphadenopathy. Patient likely has strep throat. Will treat with azithromycin. Patient has been instructed to take the medicine for the entire course even if she starts to feel better before it is over. Patient has been instructed to change her toothbrush at home. Educated to take Tylenol and Motrin as well as cough drops as needed for symptom relief. Patient educated on signs of worsening symptoms and when to return to the walk-in and when to present to the emergency department. Patient is unlikely to have para tonsillar abscess, epiglottitis, or any threat to her airway. [facility] Medical History Anxiety Frequent UTI GERD (gastroesophageal reflux disease) Surgical History Hx of bilateral salpingectomy History of umbilical hernia repair History of appendectomy Family History Mother Lung cancer Maternal Grandmother Breast cancer Social History Housing: Apartment Alcohol intake: never Patient Tobacco Use Status: Never used Tobacco e-Cigarette/Vaping Use: Never Used Second Hand Smoke Exposure: No Substance Use Type: Marijuana Current occupational status: employed Current occupation: [employer] Current occupational exposures/hazards: No Sexual orientation: Straight/Heterosexual Gender identity: Female Cognitive needs: No Hearing needs: No Vision needs: No Female Reproductive History Menstrual Age of Menarche: 12 Review of Systems Const All systems reviewed & are unremarkable except as noted in HPI and below Reports headache(s) Eyes Denies eye discharge ENT Denies dizziness, Denies otalgia, Reports headache(s), Reports sinus pain, Reports sinus pressure and Reports sore throat Neuro Denies dizziness and Reports headache(s) Physical Exam Vital Signs: Last Vital Signs Temp 97.7 F 09/29/23 08:55 Pulse 71 09/29/23 08:55 BP 130/78 09/29/23 08:55 Pulse Ox 99 09/29/23 08:55 Oxygen Delivery Method Room Air 09/29/23 08:55 BMI result Body Mass Index 31.7 Vital signs have been reviewed and are stable Const General: cooperative and no acute distress Orientation/consciousness: patient oriented x3 Limitations: no limitations HEENT Head: Yes normocephalic Ears: external ears normal and TM's normal bilaterally General nose exam: Normal external nose present Face and sinus: Yes sinus tenderness Throat: Yes cobblestoning Neck Neck: Yes full ROM and Yes no lymphadenopathy Lymphatic: no lymphadenopathy noted Neuro General: patient oriented x3 Results AMB Rapid Strep AMB Rapid Strep Negative Last Edit by Autumn Acosta CMA on 09/29/23 09:09 Results Reviewed Results Reviewed: Laboratory Last Values Strep Scn Rapid Clinic Negative 09/29/23 09:08 Assessment & Plan Assessment & Plan (1) Strep pharyngitis: Code(s): J02.0 - Streptococcal pharyngitis Plan patient will be given azithromycin to be taken its entirety. Patient instructed to change her tooth brush at home. Educated on signs of worsening symptoms and when to return to the emergency room. Patient also educated on [id number] medication she can use for symptomatic relief. Orders: Orders AMB Rapid Strep Screen Today Z13.9 - Encounter for screening, unspecified Curtis Manzanares MD Medications: New azithromycin For 250 mg dose pack: take 500 mg today (day 1), then 250 mg for 4 days (days 2-5) PO 6 tabs 0RF LEONARD Adhikari Coding Level of Care Code Est Pt Level 3 (76969) Diagnoses Strep pharyngitis J02.0 Time Spent (min) 20
[2023-09-29 08:55] VITALS: BP 130/78; PULSE 71; TEMP 36.5; O2SAT 99; BMI 31.7
== END 2023-09-29 10:16 | disposition home or self-care (01) ==
PROVIDERS: PCP Nurse Practitioner Family; Visit Provider Nurse Practitioner Primary Care
DX: J02.9 Acute pharyngitis, unspecified (principal); J02.0 Streptococcal pharyngitis
CPT/HCPCS: 87880; 99213

== ENCOUNTER 2023-10-19 09:27 | Outpatient (AMB) | payer BC, SELFPAY ==
--- NOTE | 2023-10-19 09:48 | MHC.OFFVIS ---
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 amoxicillin [Augmentin] Adverse Reaction (Unknown, Verified 10/19/23 09:51) vomiting clavulanic acid [Augmentin] Adverse Reaction (Unknown, Verified 10/19/23 09:51) vomiting HPI HPI Comments History of Present Illness Details The patient is presenting c/o irregular bleeding associated with passage of blood clots and abdominal cramping. it started few months ago and is getting worse no other associated symptoms. Last co testing in 10/12 was negative PFSH Medical History GERD (gastroesophageal reflux disease) Anxiety Frequent UTI Surgical History Hx of bilateral salpingectomy History of umbilical hernia repair History of appendectomy Family History Mother Lung cancer Maternal Grandmother Breast cancer Housing: Apartment Alcohol intake: never Patient Tobacco Use Status: Never used Tobacco e-Cigarette/Vaping Use: Never Used Second Hand Smoke Exposure: No Substance Use Type: Marijuana Current occupational status: employed Current occupation: [employer] Current occupational exposures/hazards: No Sexual orientation: Straight/Heterosexual Gender identity: Female Cognitive needs: No Hearing needs: No Vision needs: No Female Reproductive History Menstrual Age of Menarche: 12 Review of Systems Const All systems reviewed & are unremarkable except as noted in HPI and below Card Reports as per HPI Resp Reports as per HPI GI Reports as per HPI and Reports no additional complaints Reports as per HPI Physical Exam Vital Signs: Last Vital Signs BP 110/74 10/19/23 09:50 BMI result Body Mass Index 31.6 Const General: cooperative, healthy appearing and comfortable Chest Chest palpation & inspection: normal inspection of the chest and normal palpation of entire chest wall Breast/axilla inspection: normal inspection of the breasts and normal inspection of the axillae Breast/axilla palpation: normal palpation of the breasts, normal palpation of the axillae and no axillary lymphadenopathy Resp Effort & Inspection: normal respiratory effort Auscultation: clear to auscultation bilaterally Percussion: percussion normal Cardio Palpation: normal PMI Rate: regular rate Rhythm: regular rhythm Heart sounds: no murmurs and no rubs Peripheral pulses: Peripheral pulses 2+ throughout GI Inspection: Yes normal to inspection Palpation (GI): Soft to palpation, nontender, no guarding, not rigid and No hepatosplenomegaly present Percussion: Yes normal to percussion Auscultation: normal bowel sounds Rectal Exam - Female: deferred General: Yes bladder normal to palpation External Female Exam: No lesion Speculum Exam - Vagina: normal appearance of the vagina, normal palpation, normal vaginal discharge and not erythematous Speculum Exam - Cervix: normal appearance of the cervix and normal palpation Bimanual exam- vagina & uterus: normal bimanual exam, normal palpation, uterine size normal, bladder normal to palpation, consistency normal and normal palpation Bimanual Exam- Adnexa, other: normal adnexae, no masses and no tenderness Results AMB Test Urine AMB Test Urine Negative Last Edit by Mindy Waldron CMA on 10/19/23 09:54 Assessment & Plan Assessment & Plan (1) Abnormal uterine bleeding: Code(s): N93.9 - Abnormal uterine and vaginal bleeding, unspecified Plan: Co testing not indicated, GC and chlamydia taken CBC, TSH, HCG, and pelvic ultrasound ordered. Discussed with the patient the different causes of abnormal bleeding including thyroid disorders, uterine and ovarian pathology, endometrial hyperplasia, carcinoma and other potential causes. Discussed with the patient the work up including CBC (to r/o anemia), TSH, pelvic Ultrasound, endometrial biopsy to r/o endometrial pathology. All questions answered and the patient verbalized understanding. Instructed the patient to schedule an appointment for an endometrial biopsy in 2 weeks. Orders: Orders AMB HCG Urine Test Today Z32.02 - Encounter for test, result negative TSH reflex Free T4 Today N93.9 - Abnormal uterine and vaginal bleeding, unspecified Complete Blood Count no Diff Today N93.9 - Abnormal uterine and vaginal bleeding, unspecified HCG Quantitative Today N93.9 - Abnormal uterine and vaginal bleeding, unspecified Prolactin Today N93.9 - Abnormal uterine and vaginal bleeding, unspecified US pelvic and transvaginal Today N93.9 - Abnormal uterine and vaginal bleeding, unspecified Coding Level of Care Code Est Pt Level 3 (73006) Diagnoses Abnormal uterine bleeding N93.9
[2023-10-19 09:50] VITALS: BP 110/74; BMI 31.6
== END 2023-10-19 10:13 | disposition home or self-care (01) ==
LOC: HO.HWS 09:27
PROVIDERS: PCP Nurse Practitioner Family; Visit Provider Obstetrics & Gynecology
DX: N93.9 Abnormal uterine and vaginal bleeding, unspecified (principal); Z32.02 Encounter for pregnancy test, result negative
CPT/HCPCS: 99213

== ENCOUNTER 2023-10-19 09:27 | Outpatient (REF) | payer BC, SELFPAY ==
[2023-10-19 16:31] LABS: CT PCR NOT DETECTED (Not Detect.); NG PCR NOT DETECTED (Not Detect.)
== END 2023-10-19 09:28 | disposition home or self-care (01) ==
LOC: HO.LNP 09:27
PROVIDERS: PCP Nurse Practitioner Family; Visit Provider Obstetrics & Gynecology
DX: N93.9 Abnormal uterine and vaginal bleeding, unspecified (principal); Z20.2 Contact with and (suspected) exposure to infections with a predominantly sexual mode of transmission
CPT/HCPCS: 0353U; 81025

== ENCOUNTER 2023-12-23 08:06 | Outpatient (AMB) | payer BC, SELFPAY ==
[2023-12-23 08:31] VITALS: BP 120/78; PULSE 76; TEMP 36.7; O2SAT 96; BMI 30.3
--- NOTE | 2023-12-23 08:31 | MHC.OFFWIV ---
Intake Vital Signs 12/23/23 08:31 Height 4 ft 11 in Weight 150 lb BMI 30.3 BP 120/78 Blood Pressure Location Lt brachial Position Sitting Pulse 76 Pulse Source Pulse Oximeter Temp 98.1 F Temp Source Temporal Artery Scan Pulse Oximetry (%) 96 Intake Visit Reasons: EP sinus pressure fever 100 [id number] Intake Note: pt is here today for sinus pressure fever started wednesday Patient Tobacco Use Status: Never used Tobacco Allergies Sulfa (Sulfonamide Antibiotics) [Sulfa (Sulfonamides)] Allergy (Mild, Verified 12/23/23 08:32) UNKNOWN nitrofurantoin [From Macrobid] Adverse Reaction (Intermediate, Verified 12/23/23 08:32) visual disturbance. amoxicillin [Augmentin] Adverse Reaction (Unknown, Verified 12/23/23 08:32) vomiting clavulanic acid [Augmentin] Adverse Reaction (Unknown, Verified 12/23/23 08:32) vomiting Do you need a note to return to daycare/school/sports/work: No HPI EP sinus pressure fever 100 [id number] HPI Details This is a 38-year-old female patient who presents to the walk-in clinic today for a sick visit. She reports a 2 day history of body aches, chills, fever up to 100, ear and sinus pressure, and sore throat. Denies any respiratory symptoms has been taking Tylenol and Sudafed at home. Home COVID test was negative x2. Denies known exposure to sick contacts. [facility] Medical History GERD (gastroesophageal reflux disease) Anxiety Frequent UTI Surgical History Hx of bilateral salpingectomy History of umbilical hernia repair History of appendectomy Family History Mother Lung cancer Maternal Grandmother Breast cancer Social History Housing: Apartment Alcohol intake: never Patient Tobacco Use Status: Never used Tobacco e-Cigarette/Vaping Use: Never Used Second Hand Smoke Exposure: No Substance Use Type: Marijuana Current occupational status: employed Current occupation: [employer] Current occupational exposures/hazards: No Sexual orientation: Straight/Heterosexual Gender identity: Female Cognitive needs: No Hearing needs: No Vision needs: No Female Reproductive History Menstrual Age of Menarche: 12 Review of Systems Const All systems reviewed & are unremarkable except as noted in HPI and below Physical Exam Vital Signs: Last Vital Signs Temp 98.1 F 12/23/23 08:31 Pulse 76 12/23/23 08:31 BP 120/78 12/23/23 08:31 Pulse Ox 96 12/23/23 08:31 BMI result Body Mass Index 30.3 Const General: cooperative and no acute distress HEENT Head: Yes normal to inspection Ears: hearing grossly normal bilaterally and TM's normal bilaterally General nose exam: Normal external nose present, Normal nares present and Nasal discharge present mucoid Face and sinus: Yes normal facial exam Mouth: Normal oral and palatal mucosa present Throat: Yes posterior oropharynx abnormal (mild erythema) Neck Neck: Yes no lymphadenopathy Resp Effort & Inspection: normal respiratory effort and able to speak in complete sentences Auscultation: clear to auscultation bilaterally Cardio Jugular venous distension: no JVD Palpation: normal PMI Rate: regular rate Rhythm: regular rhythm Skin General skin exam: no rashes or lesions noted Extrem General: Yes capillary refill normal and Yes no clubbing, cyanosis or edema Psych Appearance: grossly normal Mental Status: mental status grossly normal Speech and movement: Normal speech and movement present Assessment & Plan Assessment & Plan (1) Upper respiratory infection: Code(s): J06.9 - Acute upper respiratory infection, unspecified Qualifiers: URI type: unspecified viral URI Qualified Code(s): J06.9 - Acute upper respiratory infection, unspecified Plan: Symptoms consistent with viral upper respiratory illness. Reviewed conservative measures including rest, hydration, [id number] cold/flu medication, healthy diet. COVID/flu/RSV swab obtained and patient aware she will be notified of results once these are available. We reviewed likely self-limiting nature of illness. She will return however if symptoms worsen or do not resolve with time and conservative measures. She verbalizes understanding and agrees to plan. Work note provided. Orders: Orders SARS-CoV2/FLU/RSV Today J06.9 - Acute upper respiratory infection, unspecified Coding Level of Care Code Est Pt Level 3 (49679) Diagnoses Viral upper respiratory tract infection J06.9 URI type: unspecified viral URI
== END 2023-12-23 08:58 | disposition home or self-care (01) ==
PROVIDERS: PCP Nurse Practitioner Family; Visit Provider Nurse Practitioner Family
DX: J06.9 Acute upper respiratory infection, unspecified (principal)
CPT/HCPCS: 99213

== ENCOUNTER 2023-12-23 08:50 | Outpatient (REF) | payer BC, SELFPAY ==
[2023-12-23 13:51] LABS: Influenza A PCR NEGATIVE (Negative); Influenza B PCR NEGATIVE (Negative); Resp Syncy Virus RNA Qual PCR NEGATIVE (Negative); SARS COV2 PCR INHOUSE NEGATIVE (Negative)
== END 2023-12-23 08:51 | disposition home or self-care (01) ==
LOC: HO.LAB 08:50
PROVIDERS: Visit Provider Nurse Practitioner Family
DX: Z11.52 Encounter for screening for COVID-19 (principal); J06.9 Acute upper respiratory infection, unspecified
CPT/HCPCS: 0241U

== ENCOUNTER 2023-12-28 12:47 | Outpatient (REF) | payer BC, SELFPAY ==
--- NOTE | ~2023-12-28 | US_ITS ---
EXAMINATION: US PELVIS CLINICAL INFORMATION: Abnormal uterine bleeding; the last menstrual period was on 12/19/2023 COMPARISON: Pelvic ultrasound dated 04/15/2022. TECHNIQUE: Ultrasound of the pelvis is performed using both transabdominal and transvaginal transducers along with Doppler. Transvaginal imaging is performed due to inadequate visualization transabdominally. FINDINGS: Uterus: The uterus is anteverted and measures 9.4 x 3.6 x 4.8 cm. The double wall endometrial thickness is 7 mm. The uterus is smooth in contour. There is a 2 mm nonshadowing hyperechoic punctate focus within the lower uterine segment, possibly vascular shadow or scant blood products. This is of doubtful clinical significance. No visible fibroid. Nabothian cysts are seen within the cervix. Adnexa: Both ovaries are visualized. There is normal color flow to the adnexa. There is no ovarian torsion. There is trace free fluid in the cul-de-sac. Right ovary measures 2.9 x 2.1 x 2.8 cm, volume 8.8 mL. Left ovary measures 3.1 x 2.2 x 2.5 cm, volume 8.6 mL. US/US pelvic and transvaginal IMPRESSION: 1. Nabothian cysts are seen within the cervix. 2. There is trace free fluid in the cul-de-sac.
[2023-12-28 16:23] LABS: MANUAL DIFF FLAG NO
[2023-12-28 16:30] LABS: Basophils Absolute Auto 0.1 X10*3/uL (0.0-0.2); Basophils Percent Auto 0.6 % (0-2); Eosinophils Absolute Auto 0.1 X10*3/uL (0.0-0.4); Eosinophils Percent Auto 1.4 % (0-4); Hematocrit 38.2 % (37.0-47.0); Hemoglobin 12.5 g/dl (12.0-16.0); Imm Gran Abs Auto 0.04 X10*3/uL (0.00-0.03); Imm Gran Pct Auto 0.4 % (0.0-0.4); Lymphocytes Absolute Auto 2.4 X10*3/uL (1.2-4.9); Lymphocytes Percent Auto 26.3 % (20-40); Mean Corpuscular HGB Conc 32.7 g/dl (31.0-35.0); Mean Corpuscular Hemoglobin 30.3 pg (27.0-33.0); Mean Corpuscular Volume 92.5 fL (80.0-98.0); Mean Platelet Volume 10.6 fL (9.4-12.3); Monocytes Absolute Auto 0.5 X10*3/uL (0.1-1.2); Neutrophils Absolute Auto 5.9 x10*3/uL (2.0-8.3); Neutrophils Percent Auto 65.3 % (45-73); Platelet Count 368 X10*3/uL (160-400); Red Blood Count 4.13 X10*6/uL (4.20-5.50); Red Cell Distribution Width 12.5 % (11.0-16.0)
[2023-12-28 16:48] LABS: HCG Quantitative < 2 mIU/mL
[2023-12-28 16:56] LABS: Alanine Aminotransferase 12 U/L (0-31); Alkaline Phosphatase 49 U/L (39-117); Anion Gap 12 (12-20); Aspartate Amino Transferase 16 U/L (5-31); Bilirubin Total 0.4 mg/dL (0.0-1.0); Blood Urea Nitrogen 11 mg/dL (9-16); Calcium 9.6 mg/dL (8.4-10.2); Carbon Dioxide 29 mmol/L (22-29); Chloride 103 mmol/L (96-108); Cholesterol 145 mg/dL (<200); Estimated Glomerular Filt Rate > 60; Glucose Fasting 86 mg/dL (60-99); HDL Cholesterol 46 mg/dL (>40); LDL Cholesterol Calculated 81 mg/dL (<100); Potassium 4.3 mmol/L (3.3-5.1); Sodium 140 mmol/L (135-145); Total Protein 7.1 g/dL (6.5-8.0); Triglycerides 93 mg/dL (<150)
[2023-12-28 17:02] LABS: TSH reflex Free T4 0.35 uIU/mL (0.32-4.0)
[2023-12-29 17:48] LABS: Prolactin 20.3 ng/mL
== END 2023-12-28 12:48 | disposition home or self-care (01) ==
LOC: HO.HMGCX 12:47
PROVIDERS: PCP Nurse Practitioner Family; Visit Provider Obstetrics & Gynecology
DX: N93.9 Abnormal uterine and vaginal bleeding, unspecified (principal); N88.8 Other specified noninflammatory disorders of cervix uteri; Z00.00 Encounter for general adult medical examination without abnormal findings
CPT/HCPCS: 36415; 76830; 76856; 80053; 80061; 84146; 84443; 84702; 85025; 85027

== ENCOUNTER 2024-01-12 12:11 | Outpatient (AMB) | payer BC, SELFPAY ==
--- NOTE | 2024-01-12 12:22 | A.OFFVIS_ITS ---
Intake Vital Signs 01/12/24 12:29 Height 4 ft 11 in Weight 149 lb 14.629 oz BMI 30.3 BP 102/60 Intake Visit Reasons: US follow up/EMB Bottle Carrier Required: No Information Interpreted: non-clinical & clinical Director Of Digital Technology: Director Of Digital Technology Present (Mindy Waldron CAROLYN) Accompanied by: Self / Same As Patient Allergies Sulfa (Sulfonamide Antibiotics) [Sulfa (Sulfonamides)] Allergy (Mild, Verified 01/12/24 12:33) UNKNOWN nitrofurantoin [From Macrobid] Adverse Reaction (Intermediate, Verified 01/12/24 12:33) visual disturbance. amoxicillin [Augmentin] Adverse Reaction (Unknown, Verified 01/12/24 12:33) vomiting clavulanic acid [Augmentin] Adverse Reaction (Unknown, Verified 01/12/24 12:33) vomiting HPI HPI Comments History of Present Illness Details Presenting for endometrial biopsy PFSH Medical History GERD (gastroesophageal reflux disease) Anxiety Frequent UTI Surgical History Hx of bilateral salpingectomy History of umbilical hernia repair History of appendectomy Family History Mother Lung cancer Maternal Grandmother Breast cancer Social History Housing: Apartment Alcohol intake: never Patient Tobacco Use Status: Never used Tobacco e-Cigarette/Vaping Use: Never Used Second Hand Smoke Exposure: No Substance Use Type: Marijuana Current occupational status: employed Current occupation: [email or web address] Current occupational exposures/hazards: No Sexual orientation: Straight/Heterosexual Gender identity: Female Cognitive needs: No Hearing needs: No Vision needs: No Female Reproductive History Menstrual Age of Menarche: 12 Date of last menstrual period: 12/20/23 Physical Exam Vital Signs: Last Vital Signs BP 102/60 01/12/24 12:29 BMI result Body Mass Index 30.3 Office Procedures Endometrial Biopsy Details: The patient was counseled regarding the indication and benefits of endometrial sampling to rule out endometrial pathology including not limited to endometrial hyperplasia or endometrial cancer and others; The alternatives (Either do nothing vs. hysteroscopy D&C) & the risks were discussed with the patient including but not limited: pain, uterine perforation, bleeding, infection, possible injury to bladder, bowel, ureter, possible need for blood transfusion with all its possible risks. The patient verbalized understanding all questions answered and signed consent. Urine test done in the office was negative The patient was placed into the dorsal lithotomy position; a speculum was inserted in the vagina. Using aseptic technique for the procedure, the cervix was cleansed with Betadine. The anterior lip of the cervix was grasped with a single tooth tenaculum. The uterus was sounded to 7 cm with a 4 mm Pipelle was used. Tissues samples were obtained and placed in formalin, in a patient labeled container and sent to the pathology department. At the end of the procedure, there was minimal bleeding noted The patient tolerated the procedure well and was discharged in good condition with the following instructions: Nothing in the vagina until the bleeding stops. No sex until the bleeding stops, to call if any of the following occurs: fever (>100.4), flu-like symptoms, abdominal pain, heavy bleeding, four smelling vaginal discharge. The patient was instructed to schedule a Follow up appointment in 2 weeks to discuss pathology results of the biopsy and treatment options. This note was generated with a voice recognition program. Some errors may have been overlooked during the review of this note. Sometimes these errors may affect the content or meaning of a given sentence. [id number] Biopsy Results AMB Test Urine AMB Test Urine Negative Last Edit by Mindy Waldron CMA on 12:35 Assessment & Plan Assessment & Plan (1) Abnormal uterine bleeding: Code(s): N93.9 - Abnormal uterine and vaginal bleeding, unspecified Plan: EMB done, see procedure note Orders: Orders AMB HCG Urine Test Today Z32.02 - Encounter for test, result negative AMB Endometrial Biopsy Today N93.9 - Abnormal uterine and vaginal bleeding, unspecified Coding Level of Care Code Procedure Only Diagnoses Abnormal uterine bleeding N93.9 CPT Codes Endometrial Biopsy - CPT: 75075-Zbzgbvunuai Biopsy ([id number])
[2024-01-12 12:29] VITALS: BP 102/60; BMI 30.3
== END 2024-01-12 13:50 | disposition home or self-care (01) ==
LOC: HO.HWS 12:11
PROVIDERS: PCP Nurse Practitioner Family; Visit Provider Obstetrics & Gynecology
DX: N93.9 Abnormal uterine and vaginal bleeding, unspecified (principal); Z32.02 Encounter for pregnancy test, result negative
CPT/HCPCS: 58100

== ENCOUNTER 2024-01-12 12:11 | Outpatient (REF) | payer BC, SELFPAY | END 2024-01-12 12:12 | disposition home or self-care (01) | LOC: HO.LNP 12:11 | PROVIDERS: PCP Nurse Practitioner Family; Visit Provider Obstetrics & Gynecology | DX: N93.9 Abnormal uterine and vaginal bleeding, unspecified (principal) | CPT/HCPCS: 58100; 81025; 88305 ==

== ENCOUNTER 2024-01-26 13:13 | Outpatient (AMB) | payer BC, SELFPAY ==
--- NOTE | 2024-01-26 13:20 | A.OFFVIS_ITS ---
Intake Vital Signs 01/26/24 13:21 Height 4 ft 11 in BP 114/74 Blood Pressure Location Rt brachial Position Sitting Pulse 63 Pulse Source Pulse Oximeter Pulse Oximetry (%) 100 Oxygen Delivery Method Room Air Intake Visit Reasons: ENP-Dizziness/Migraines-LVM Intake Note: * Patient presents for dizziness and migraines. Ringing in my ears and migraines. Allergies Sulfa (Sulfonamide Antibiotics) [Sulfa (Sulfonamides)] Allergy (Mild, Verified 01/26/24 13:33) UNKNOWN nitrofurantoin [From Macrobid] Adverse Reaction (Intermediate, Verified 01/26/24 13:33) visual disturbance. amoxicillin [Augmentin] Adverse Reaction (Unknown, Verified 01/26/24 13:33) vomiting clavulanic acid [Augmentin] Adverse Reaction (Unknown, Verified 01/26/24 13:33) vomiting Medication List - Last Reconciled 01/26/24 by LEONARD Montanez No Known Home Meds HPI HPI Comments History of Present Illness Details 38-yr-old female presents for new pt adwoa luation of headache and dizzi ness.. Pt reports she has had regular headaches for at least 10 years. Then in April of 2023, she started having a new headache type, bilateral ringing tinnitus, and more difficulty hearing. In the last 6 months, she has been unable to lay flat as this elicits dizziness. She denies any preceding infection, injuries, travel, weight gain. PMH is significant for: headache, systolic murmur, abnormal uterine bleeding/ovarian cyst. Pt also endorses: Infantile colic, has always been prone to motion sickness, frequent childhood ear infections- more left sided. Pertinent denials include: Denies depression, bipolar, constipation, concussions, clotting disorders, background neck issues, diabetes, asthma, hypertension or hyperlipidemia, seizure disorders, thyroid disease. Headache questionnaire: Previous work-up: Head CT, 12/2022- unremarkable Eye Exam- [facility]- last seen in Oct- was told floaters. No ear exam. Typical regular headache characteristics: Prodrome symptoms? none Aura? none Pain intensity? 05/31 Location, quality, characteristics? Throbbing right temporal through frontal region pain. Associated symptoms? Photophobia, nausea, vomiting at times, cognitive diff iculties, activity intolerance Focal weakness, Parethesias, Autonomic s/s? none Postdrome? None Triggers? alcohol- even small amts, Any positional, valsalva, exertional, sexual activity triggers? none Menstrual triggers? none Time of day? no specifc time of day Duration and Frequency? Milder weekly, but can be every other week. Until the end of the day. never lasted 2 days. How does headache impact your life? Can make it difficult to do her activities. 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 Typical new headache characteristics: Prodrome symptoms? none Aura? Left eye twitching and mild droop, sees a black thing that moves as she moves her eyes up/down- from the left lateral eye. this is a bit better over the winter. This can all start as headache starts, but also all can occur w/o a headache. Pain intensity? Severe Location, quality, characteristics? Pounding, right frontal/temporal and moves into the occipital region- which feels warm and tingling along mid-occipital saggital line. Associated symptoms? Photophobia, phonophobia, nausea, external spinning dizziness, worsening ringing tinnitus, fatigued, activity intolerance. Focal weakness, Parethesias, Autonomic s/s? Denies diplopia, red eyes, watery, nasal congestion, speech changes, numbness/tingling in UE/LE, Postdrome? none Triggers? Once flickering light- for the very 1st attack in April 2023 Any positional, valsalva, exertional, sexual activity triggers? none Menstrual triggers? none Time of day? none Duration and Frequency? Initially was twice a month, and now about once a month. And lasts about 2 days How does headache impact your life? cannot function Lifetsyle considerations- Exercise: Walks twice a week Substance use: Coffee- 1-2 cups in am. Marijuana- Daily- helps w/ sleep. No alcohol intake. No tobacco or other substance use. Sleep- once asleep, sleeps ok. Current acute medication use/interventions: Tylenol- ineffective Previous acute medication use: Ibuporfen- caused GI s/e's. Current preventative medication use: None Previous preventative medication use: None Non-pharmacological interventions: Ice Family planning? None Family history of migraine or other headache disorder? Denies [facility] Medical History GERD (gastroesophageal reflux disease) Anxiety Frequent UTI Surgical History Hx of bilateral salpingectomy History of umbilical hernia repair History of appendectomy Family History Mother Lung cancer Maternal Grandmother Breast cancer Social History Housing: Apartment Alcohol intake: never Patient Tobacco Use Status: Never used Tobacco e-Cigarette/Vaping Use: Never Used Second Hand Smoke Exposure: No Substance Use Type: Marijuana Current occupational status: employed Current occupation: [employer] Current occupational exposures/hazards: No Sexual orientation: Straight/Heterosexual Gender identity: Female Cognitive needs: No Hearing needs: No Vision needs: No Female Reproductive History Menstrual Age of Menarche: 12 Physical Exam Vital Signs: Last Vital Signs Pulse 63 01/26/24 13:21 BP 114/74 01/26/24 13:21 Pulse Ox 100 01/26/24 13:21 Oxygen Delivery Method Room Air 01/26/24 13:21 Const Orientation/consciousness: patient oriented x3 HEENT Head: Yes normocephalic Ears: Starkey (Sound lateralized to the right) Resp Effort & Inspection: normal respiratory effort and able to speak in complete sentences Neuro General: patient oriented x3 Cranial nerves: Yes CN's II-XII intact bilaterally Cognition (Neuro): normal cognition Gait exam (Neuro): Normal gait present Motor exam (neuro): 5/5 motor strength present throughout Deep tendon reflexes (DTR's): Right triceps reflex intensity grade: 2+, Left triceps reflex intensity grade: 2+, Rt Biceps (C5, C6): 2+, Left biceps reflex intensity grade: 2+, Right brachioradialis reflex intensity grade: 2+, Left brachioradialis reflex intensity grade: 2+, Right patellar reflex intensity grade: 2+ and Left patellar reflex intensity grade: 2+ Coordination: [id number] test normal, tandem gait normal and Romberg test negative Pupils: Normal pupillary reactivity/response: bilateral Psych Appearance: grossly normal Mental Status: mental status grossly normal Speech and movement: Normal speech and movement present Affect: normal affect Attitude: cooperative Thought process: Normal thought process present Assessment & Plan Assessment & Plan (1) Vertigo: Code(s): R42 - Dizziness and giddiness (2) Migraine: Code(s): G43.909 - Migraine, unspecified, not intractable, without status migrainosus (3) Transient vision disturbance, left: Code(s): H53.9 - Unspecified visual disturbance (4) Hearing difficulty: Code(s): H91.90 - Unspecified hearing loss, unspecified ear (5) Tinnitus: Code(s): H93.19 - Tinnitus, unspecified ear Plan Pt advised to undergo brain MRI w/wo w/ lg IAC- to assess for secondary intracranial etiology of worsening right sided headache, new bilateral tinnitus, hearing changes, and abnormal Starkey test, as well as new symptoms of Left sided eye twitching and mild droop, left lateral eye- vision change of seeing a black thing that moves up/down w/ eye movement eyes (? floater vs aura vs vascular). Will take the liberty of requesting ENT consult for further evaluation of vertigo, tinnitus, hearing changes, and abnormal Starkey test. For vertigo: Start PT for vestibular eval & tx. May resume Meclizine 25mg prn. For overall headache management: Discussed importance of good self-care, including but not limited to maintaining a healthy diet, adequate fluid intake, adequate sleep, and engaging in regular physical activity. For headache triggers: Track headaches, especially after any treatment regimen changes. Migraine [employer] is one of many headache tracking apps. Light sensitivity tips: Patient may try blue light filtering glasses, green glasses, green light therapy.. For acute headache treatment: Discussed importance of taking acute medications at the first sign of headache, however stressed importance of avoiding acute medication overuse (especially with combined headache medications). Trial Sumatriptan 100mg tab, 1/2 - 1 tab (50-100mg) at onset of headache, may repeat in 2 hours. Max of 2 tabs (200mg) per 24 hours. May adjunct with OTC Tylenol 650mg q 4 hours, Ibuprofen 600mg q 6 hours, or Naproxen 440mg q 12 hrs prn. Reviewed potential adverse effects of triptans, including but not limited to nausea, fatigue, chest tightness/tingling (usually passes within a few minutes), medication overuse headaches. Previous acute migraine medication trials: None Acute migraine medication contraindications: None at this time For headache prevention medication: Discussed that preventative medications should be taken routinely as prescribed for best effect, it may take several weeks for full effect to take effect. Start Riboflavin 400mg qam Start Magnesium 400mg qhs Previous migraine prevention medication trials: None Migraine prevention medication contraindications: None at this time Case discussed w/ Dr Bre Yun Pt to follow-up in 1.5-2 months or sooner prn. Orders: Orders MR head/brain wo/w con 01/26/24 H02.402 - Unspecified ptosis of left eyelid, H 53.9 - Unspecified visual disturbance, H91.90 - Unspecified hearing loss, unspecified ear, H93.19 - Tinnitus, unspecified ear, R42 - Dizziness and giddiness PT Evaluation and Treatment 01/26/24 G43.909 - Migraine, unspecified, not intractable, without status migrainosus, R42 - Dizziness and giddiness Referrals Ear/Nose/Throat Referral G43.909 - Migraine, unspecified, not intractable, without status migrainosus, H91.90 - Unspecified hearing loss, unspecified ear, H93.19 - Tinnitus, unspecified ear, R42 - Dizziness and giddiness Medications: New riboflavin (vitamin B2) in am 400 mg (4 x 100 mg) PO DAILY 30 days 120 tabs 6RF sumatriptan succinate (0.5 - 1 x 100 mg) 50 - 100 mg orally at onset of headache, may repeat in 2 hrs PRN; max 2 tabs per day or 4 tabs/week (may take with Ibuprofen) 30 days 12 tabs 6RF migraine headache magnesium oxide may hold for loose stools 400 mg PO BEDTIME 30 days 30 tabs 6RF Changed From meclizine 25 mg PO DAILY PRN 14 tabs 0RF vertigo To meclizine 25 mg PO DAILY 30 days PRN 30 tabs 1RF vertigo Coding Level of Care Code New Pt Level 4 (32017) Diagnoses Vertigo R42 Migraine G43.909 Transient vision disturbance, left H53.9 Hearing difficulty H91.90 Tinnitus H93.19
[2024-01-26 13:21] VITALS: BP 114/74; PULSE 63; O2SAT 100
== END 2024-01-26 14:48 | disposition home or self-care (01) ==
PROVIDERS: PCP Nurse Practitioner Family; Visit Provider Nurse Practitioner Family
DX: R42 Dizziness and giddiness (principal); G43.909 Migraine, unspecified, not intractable, without status migrainosus; H53.9 Unspecified visual disturbance; H91.90 Unspecified hearing loss, unspecified ear; H93.19 Tinnitus, unspecified ear
CPT/HCPCS: 99204

== ENCOUNTER → 2024-01-26 13:13 | Outpatient (BNVA) | payer BC, SELFPAY | PROVIDERS: PCP Nurse Practitioner Family; Visit Provider Nurse Practitioner Family ==

== ENCOUNTER 2024-02-14 09:33 | Outpatient (REF) | payer BC, SELFPAY ==
--- NOTE | ~2024-02-14 | MR_ITS ---
EXAMINATION: MR BRAIN AND IACs WITHOUT AND WITH CONTRAST CLINICAL INFORMATION: 38-year-old with dizziness and giddiness, hearing loss, abnormal Starkey sound, lateralizes to the right. COMPARISON: None available. TECHNIQUE: Multiplanar, multisequence MRI of the brain/IACs was obtained before and after the intravenous administration of 7 mL Gadavist. FINDINGS: IACs: Bilaterally symmetric, no mass lesions or abnormal enhancement. CN VII-VIII complexes normal. AICA LOOPS: Type I on right. Type II on left. MEMBRANOUS LABYRINTHS: Normal, no abnormal enhancement, normal fluid signal. CP ANGLE CISTERNS: No mass lesions or abnormal enhancement. BRAIN VOLUME: Within normal limits within the limitations of qualitative assessment. BRAIN AND MENINGES: DWI sequence demonstrates no restricted diffusion to suggest acute or subacute cerebral ischemia. The brain is normal in morphology. A few punctate FLAIR signal hyperintensities are seen in the immediate subcortical white matter of the mesial left frontal lobe near the convexity with no abnormal enhancement, which are nonspecific findings. The remainder of the brain parenchyma is normal in signal intensity throughout. Gradient refocused imaging demonstrates no abnormal susceptibility-weighted signal loss to suggest hemorrhage, hemosiderin staining or abnormal mineralization. No extra-axial fluid collections, intracranial mass lesions, space-occupying process, mass effect or pathologic intracranial enhancement are identified. VESSELS: Normal signal voids are seen in the visualized major intracranial vessels, limited evaluation. VENTRICLES AND SUBARACHNOID SPACES: The ventricular system and subarachnoid spaces are within normal range; there is no hydrocephalus. ORBITAL STRUCTURES: The visualized orbital structures are grossly unremarkable within the limitations of the study. OSSEOUS STRUCTURES, SINUSES/MASTOIDS, EXTRACRANIAL SOFT TISSUES: Mildly prominent soft tissue in the region of the adenoids is noted, with a 1 cm focus of hypoenhancement on the right side of the adenoidal tissue. Recommend correlation with direct visualization of the posterior nasopharynx and clinical follow-up. MR/MR head/brain wo/w con IMPRESSION: 1. Normal appearance to the auditory apparatus with a normal appearance to the IACs, inner ear structures and CP angle cisterns. No mass lesions or abnormal enhancement are identified. 2. A few punctate subcortical white matter T2 hyperintensities in the mesial left frontal lobe near the convexity are noted, which are nonspecific findings, of doubtful significance. 3. Prominent soft tissue in the region of the adenoids with a 1 cm focus of hypoenhancement on the right side of the adenoidal tissue. Recommend correlation with direct visualization of the posterior nasopharynx and clinical follow-up to confirm stability.
[2024-02-14] MEDS: gadobutroL 7.5 ML VIAL IVPUSH (10:29)
== END 2024-02-14 09:34 | disposition home or self-care (01) ==
LOC: HO.MRI 09:33
PROVIDERS: PCP Nurse Practitioner Family; Visit Provider Nurse Practitioner Family
DX: R42 Dizziness and giddiness (principal); H93.19 Tinnitus, unspecified ear; H91.90 Unspecified hearing loss, unspecified ear; H53.9 Unspecified visual disturbance; H02.402 Unspecified ptosis of left eyelid
CPT/HCPCS: 70553; A9585

== ENCOUNTER 2024-02-17 12:13 | Outpatient (AMB) | payer BC, SELFPAY ==
[2024-02-17 12:13] VITALS: BP 116/68; BMI 30.3
--- NOTE | 2024-02-17 12:13 | MHC.OFFVIS ---
Intake Vital Signs 02/17/24 12:13 Height 4 ft 11 in Weight 149 lb 14.629 oz BMI 30.3 BP 116/68 Intake Visit Reasons: emb follow up Vice President Risk Management Required: No Information Interpreted: non-clinical & clinical Draw Frame Operator: Draw Frame Operator Present Accompanied by: Self / Same As Patient Allergies Sulfa (Sulfonamide Antibiotics) [Sulfa (Sulfonamides)] Allergy (Mild, Verified 02/17/24 12:16) UNKNOWN nitrofurantoin [From Macrobid] Adverse Reaction (Intermediate, Verified 02/17/24 12:16) visual disturbance. amoxicillin [Augmentin] Adverse Reaction (Unknown, Verified 02/17/24 12:16) vomiting clavulanic acid [Augmentin] Adverse Reaction (Unknown, Verified 02/17/24 12:16) vomiting Is last menstrual period known: Yes Last menstrual period: 02/12/24 Post menopausal: No Patient : No Do you need a note to return to daycare/school/sports/work: Yes (for surgery on wednesday) HPI HPI Comments History of Present Illness Details The patient is presenting after endometrial biopsy. The patient has no complaints, no vaginal bleeding, no feverishness chills or abdominal pain. The pathology showed the following: Endometrium, biopsy: Benign early secretory endometrium with fragments suggestive of benign endometrial polyp; no atypia or carcinoma PFSH Medical History GERD (gastroesophageal reflux disease) Anxiety Frequent UTI Surgical History Hx of bilateral salpingectomy History of umbilical hernia repair History of appendectomy Family History Mother Lung cancer Maternal Grandmother Breast cancer Social History Housing: Apartment Alcohol intake: never Patient Tobacco Use Status: Never used Tobacco e-Cigarette/Vaping Use: Never Used Second Hand Smoke Exposure: No Substance Use Type: Marijuana Current occupational status: employed Current occupation: [employer] Current occupational exposures/hazards: No Sexual orientation: Straight/Heterosexual Gender identity: Female Cognitive needs: No Hearing needs: No Vision needs: No Female Reproductive History Menstrual Age of Menarche: 12 Date of last menstrual period: 02/12/24 Total pregnancies: 2 Full term: 2 Review of Systems Const All systems reviewed & are unremarkable except as noted in HPI and below Reports as per HPI and Reports no additional complaints Card Reports as per HPI and Reports no additional complaints Resp Reports as per HPI and Reports no additional complaints GI Reports no additional complaints Reports no additional complaints Physical Exam Vital Signs: Last Vital Signs BP 116/68 02/17/24 12:13 BMI result Body Mass Index 30.3 Const General: cooperative, healthy appearing and comfortable Resp Effort & Inspection: normal respiratory effort Auscultation: clear to auscultation bilaterally Percussion: percussion normal Cardio Palpation: normal PMI Rate: regular rate Rhythm: regular rhythm Heart sounds: no murmurs and no rubs Peripheral pulses: Peripheral pulses 2+ throughout GI Inspection: Yes normal to inspection Palpation (GI): Soft to palpation, nontender, no guarding, not rigid and No hepatosplenomegaly present Percussion: Yes normal to percussion Auscultation: normal bowel sounds Rectal Exam - Female: deferred Assessment & Plan Assessment & Plan (1) Abnormal uterine bleeding: Comment: Endometrial polyp on EMB pathology Code(s): N93.9 - Abnormal uterine and vaginal bleeding, unspecified Plan: Discussed with the patient the results of the pathology showing fragments suggestive of endometrial fragments, recommended hysteroscopy D&C possible polypectomy/myomectomy. Discussed with the patient the procedure , all benefits and risks including but not limited to inability to complete the procedure , insufficient endometrial tissue for a complete evaluation of the endometrial cavity , bleeding, infection, possible need for blood transfusion with all its risk ( HIV,syphilis, Hepatitis, anaphylaxis shock, others..), injury to bladder, rectum, possible need for laparoscopy/laparotomy or hysterectomy. The patient verbalized understanding and signed the consent. Instructions given the patient to schedule a 2 week postoperative appointment Coding Level of Care Code Est Pt Level 3 (92565) Diagnoses Abnormal uterine bleeding N93.9
== END 2024-02-17 13:29 | disposition home or self-care (01) ==
LOC: HO.HWS 12:13
PROVIDERS: PCP Nurse Practitioner Family; Visit Provider Obstetrics & Gynecology
DX: N93.9 Abnormal uterine and vaginal bleeding, unspecified (principal)
CPT/HCPCS: 99213

== ENCOUNTER → 2024-02-17 12:13 | Outpatient (BNVA) | payer BC, SELFPAY | PROVIDERS: PCP Nurse Practitioner Family; Visit Provider Obstetrics & Gynecology ==

== ENCOUNTER 2024-03-10 07:36 | Outpatient (AMB) | payer BC, SELFPAY ==
--- NOTE | 2024-03-10 07:36 | MHC.OFFVIS ---
Intake Visit Reasons: 6/8 wks f/u-LVM Intake Note: Patient following up. Allergies Sulfa (Sulfonamide Antibiotics) [Sulfa (Sulfonamides)] Allergy (Mild, Verified 03/17/24 06:09) UNKNOWN amoxicillin [Augmentin] Adverse Reaction (Intermediate, Verified 03/17/24 06:09) vomiting clavulanic acid [Augmentin] Adverse Reaction (Intermediate, Verified 03/17/24 06:09) vomiting nitrofurantoin [From Macrobid] Adverse Reaction (Intermediate, Verified 03/17/24 06:09) visual disturbance double vision HPI Comments Details: 38-yr-old female presents for f/u televideo visit via [employer]. Pt started PT for dizziness and migraine. She tolerated B2 well. Mag Ox caused GI upset. Sumatriptan is helpful. 02/14/24, MR/MR head/brain wo/w con IMPRESSION: 1. Normal appearance to the auditory apparatus with a normal appearance to the IACs, inner ear structures and CP angle cisterns. No mass lesions or abnormal enhancement are identified. 2. A few punctate subcortical white matter T2 hyperintensities in the mesial left frontal lobe near the convexity are noted, which are nonspecific findings, of doubtful significance. 3. Prominent soft tissue in the region of the adenoids with a 1 cm focus of hypoenhancement on the right side of the adenoidal tissue. Recommend correlation with direct visualization of the posterior nasopharynx and clinical follow-up to confirm stability. Baseline headache characteristics: Headache #1: 7/10 Throbbing right temporal through frontal region pain a/w photophobia, nausea, vomiting at times, cognitive difficulties, activity intolerance. Headache #2: Aura: Left eye twitching and mild droop, sees a black thing that moves as she moves her eyes up/down- from the left lateral eye. this is a bit better over the winter. This can all start as headache starts, but also all can occur w/o a headache. Headache: Severe, Pounding, right frontal/temporal and moves into the occipital region- which feels warm and tingling along mid-occipital sagital line. A/w photophobia, phonophobia, nausea, external spinning dizziness, worsening ringing tinnitus, fatigued, activity intolerance. [facility], LAT[facility] Medical History (Updated 03/26/24 @ 21:38 by LEONARD Montanez) Migraine Vertigo Systolic murmur GERD (gastroesophageal reflux disease) Anxiety Frequent UTI Surgical History (Updated 03/17/24 @ 06:09 by Paola Dave RN) Hx of bilateral salpingectomy History of umbilical hernia repair History of appendectomy Family History Mother Lung cancer Maternal Grandmother Breast cancer Social History Housing: Apartment Are you a primary pharmacy care coordinator to a significant other at home: Yes (children, with 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) Do you presently have visiting nurse or other home services: No Alcohol intake: never Patient Tobacco Use Status: Never used Tobacco e-Cigarette/Vaping Use: Never Used Second Hand Smoke Exposure: No Substance Use Type: Marijuana Current occupational status: employed Current occupation: [employer] Current occupational exposures/hazards: No Sexual orientation: Straight/Heterosexual Gender identity: Female Cognitive needs: No Hearing needs: No Vision needs: No Female Reproductive History Menstrual Age of Menarche: 12 Physical Exam Const General: cooperative and no acute distress Orientation/consciousness: patient oriented x3 Resp Effort & Inspection: normal respiratory effort and able to speak in complete sentences Neuro General: patient oriented x3 Cognition (Neuro): normal cognition Psych Appearance: grossly normal Mental Status: mental status grossly normal Speech and movement: Normal speech and movement present Affect: normal affect Attitude: cooperative Telehealth Telehealth Location of provider rendering services: practice address Location of patient: address on file Patient Identification confirmed using: Name, : Yes Telehealth method: video Patient verbally consented to treatment: Yes Patient verbally consented to billing insurance company: Yes Patient informed of any privacy concerns related to visit: Yes Minutes spent on Phone/Video with Pt.: 6 Assessment & Plan Assessment & Plan (1) Migraine: Code(s): G43.909 - Migraine, unspecified, not intractable, without status migrainosus Category: Medical (2) Tinnitus: Code(s): H93.19 - Tinnitus, unspecified ear Category: Medical (3) Dizziness: Code(s): R42 - Dizziness and giddiness Category: Medical Plan Reviewed brain MRI w/wo w/ lg IAC- A few punctate subcortical white matter T2 hyperintensities in the mesial left frontal lobe near the convexity, which are nonspecific findings. Prominent 1cm foci of hypoenhancement in right-sided adenoid soft tissue. Will forward MRI report to ENT. ENT consult as ordered. ? For vertigo: Continue PT for vestibular eval & tx. ? For overall headache management: Continue to optimize good self-care, including but not limited to maintaining a healthy diet, adequate fluid intake, adequate sleep, and engaging in regular physical activity. Track headaches. For acute headache treatment: Continue Sumatriptan 100mg tab, 1/2 - 1 tab (50-100mg) at onset of headache, may repeat in 2 hours. Max of 2 tabs (200mg) per 24 hours. May adjunct with OTC Tylenol 650mg q 4 hours, Ibuprofen 600mg q 6 hours, or Naproxen 440mg q 12 hrs prn. Previous acute migraine medication trials: None Acute migraine medication contraindications: None at this time ? For headache prevention medication: Continue Riboflavin 400mg qam Stop Magnesium 400mg qhs- caused GI upset. Previous migraine prevention medication trials: None other Migraine prevention medication contraindications: None at this time ? ? Scribe Plan - Not visible on output: Reviewed possible medication side effects, including but not limited to drowsiness, dizziness. Coding Level of Care Code Tele Est Pt Level 4 (88747) Diagnoses Migraine G43.909 Tinnitus H93.19 Dizziness R42
== END 2024-03-10 15:45 | disposition home or self-care (01) ==
LOC: HO.HSMS 07:36
PROVIDERS: PCP Nurse Practitioner Family; Visit Provider Nurse Practitioner Family
DX: G43.909 Migraine, unspecified, not intractable, without status migrainosus (principal); H93.19 Tinnitus, unspecified ear; R42 Dizziness and giddiness
CPT/HCPCS: 99214

== ENCOUNTER → 2024-03-10 07:36 | Outpatient (BNVA) | payer BC, SELFPAY | PROVIDERS: PCP Nurse Practitioner Family; Visit Provider Nurse Practitioner Family ==

== ENCOUNTER 2024-03-17 06:01 | Day surgery (SDC) | payer BC, SELFPAY ==
--- NOTE | 2024-03-15 13:46 | HO.ANESPROP2 ---
Documented by User: Kristina Castro NP 03/15/24 13:47 HPI - Anesthesia Eval Consult details Narrative: 38yo F for D&C Hysteroscopy,possible myomectomy,possible polypectomy, PMFSH Active Problems Active Problems: All Active Problems Ptosis, left eyelid (Acute) Transient vision disturbance, left (Acute) Hearing difficulty (Acute) Tinnitus (Acute) Migraine (Acute) Vertigo (Acute) Facial lesion (Acute) Sensation of pressure in bladder area (Acute) Bladder spasm (Acute) Cystitis (Acute) Anxiety (Acute) Dizziness (Acute) Systolic murmur (Acute) Dermatitis (Acute) Numerous moles (Acute) Physical exam (Acute) Incomplete immunization series (Acute) Microscopic hematuria (Acute) Pelvic pain (Acute) Abnormal uterine bleeding (Acute) Complex ovarian cyst (Acute) COVID-19 (Acute) Encounter to discuss test results (Acute) Epigastric pain (Acute) Epigastric discomfort (Acute) Urinary frequency (Acute) Hematuria (Acute) Past Medical History Medical History Migraine Vertigo Systolic murmur GERD (gastroesophageal reflux disease) Anxiety Frequent UTI Family History Family History Mother Lung cancer Maternal Grandmother Breast cancer Surgical History Surgical History (Updated 03/17/24 @ 06:09 by Paola Dave RN) Hx of bilateral salpingectomy History of umbilical hernia repair History of appendectomy Social History Social History Housing: Apartment Are you a primary pharmacist critical care to a significant other at home: Yes (children, with 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) Do you presently have visiting nurse or other home services: No Alcohol intake: never Patient Tobacco Use Status: Never used Tobacco e-Cigarette/Vaping Use: Never Used Second Hand Smoke Exposure: No Use of substances other than those prescribed or required for medical reasons: Yes Substance Use Type: Marijuana Substance Use Frequency: Daily Have you been hit, kicked, punched, or otherwise hurt by someone within the past year? If so, by whom?: No Are you DNR?: No Advance Directives: No Advance Directives Information Provided: Yes Advance Directives on File: No Recently lost weight without trying: No Nutrition Risks: No Nutritional Risk Patient : No FDLMP: 03/10/2024 : No Poor oral hygiene: No Current occupational status: employed Current occupation: [employer] Current occupational exposures/hazards: No Sexual orientation: Straight/Heterosexual Gender identity: Female Cognitive needs: No Hearing needs: No Vision needs: No Meds Allergies Allergy/AdvReac Type Severity Reaction Status Date / Time Sulfa (Sulfonamide Allergy Mild UNKNOWN Verified 03/17/24 06:09 Antibiotics) [Sulfa (Sulfonamides)] amoxicillin [Augmentin] AdvReac Intermediate vomiting Verified 03/17/24 06:09 clavulanic acid [Augmentin] AdvReac Intermediate vomiting Verified 03/17/24 06:09 nitrofurantoin AdvReac Intermediate visual Verified 03/17/24 06:09 [From Macrobid] disturbance double vision Exam Narrative Narrative: ECHO 2021 Conclusions: - The left ventricular systolic function is normal. The calculated ejection fraction is 58% by biplane method. - No obvious valvular pathology seen on this study. Assessment and Plan Assessment Anesthesia Assessment: Chart Reviewed Documented by User: Surinder Espinoza MD 03/17/24 07:31 [facility] Past Medical History Medical History Migraine Vertigo Systolic murmur GERD (gastroesophageal reflux disease) Anxiety Frequent UTI Functional capacity: wheelchair bound Patient : No Family History Family History Mother Lung cancer Maternal Grandmother Breast cancer Family history of problems with anesthesia: No Surgical History Surgical History (Updated 03/17/24 @ 06:09 by Paola Dave RN) Hx of bilateral salpingectomy History of umbilical hernia repair History of appendectomy History of Problems with Anesthesia: No Social History Social History Housing: Apartment Are you a primary pharmacist critical care to a significant other at home: Yes (children, with 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) Do you presently have visiting nurse or other home services: No Alcohol intake: never Patient Tobacco Use Status: Never used Tobacco e-Cigarette/Vaping Use: Never Used Second Hand Smoke Exposure: No Use of substances other than those prescribed or required for medical reasons: Yes Substance Use Type: Marijuana Substance Use Frequency: Daily Have you been hit, kicked, punched, or otherwise hurt by someone within the past year? If so, by whom?: No Are you DNR?: No Advance Directives: No Advance Directives Information Provided: Yes Advance Directives on File: No Recently lost weight without trying: No Nutrition Risks: No Nutritional Risk Patient : No FDLMP: 03/10/2024 : No Poor oral hygiene: No Current occupational status: employed Current occupation: [employer] Current occupational exposures/hazards: No Sexual orientation: Straight/Heterosexual Gender identity: Female Cognitive needs: No Hearing needs: No Vision needs: No Meds Allergies Allergy/AdvReac Type Severity Reaction Status Date / Time Sulfa (Sulfonamide Allergy Mild UNKNOWN Verified 03/17/24 06:09 Antibiotics) [Sulfa (Sulfonamides)] amoxicillin [Augmentin] AdvReac Intermediate vomiting Verified 03/17/24 06:09 clavulanic acid [Augmentin] AdvReac Intermediate vomiting Verified 03/17/24 06:09 nitrofurantoin AdvReac Intermediate visual Verified 03/17/24 06:09 [From Macrobid] disturbance double vision Exam Airway Mallampati Class: II TM Dist: >3cm Neck ROM: Full Loose/Missing/Broken Teeth: No Heart: ok Lungs: ok Assessment and Plan Assessment Anesthesia Assessment: Anesthesia Plan Discussed Final Anesthetic Review Family History of Problems with Anesthesia: No History of Problems with Anesthesia: No NPO: Yes ASA Class: II Final Preanesthetic Review: No Changes in Pt Med Stat, Meds/Allgs Chart Reviewed, Consent Obtained/Reviewed and Anes Risks/Benef Reviewed Patient Risk: Low Procedure Risk: Low Anesthetic Plan Anesthetic Plan: GA and Agree w/ Assess. and Plan Disposition: Standard PACU
[2024-03-15 16:24] VITALS: BMI 30.3
[2024-03-16 11:28] VITALS: BMI 30.3
[2024-03-17 06:16] VITALS: BP 103/50; PULSE 65; RESP 15; TEMP 37; O2SAT 100; BMI 31.1
[2024-03-17 06:27] LABS: UPreg QC Valid YES; Urine Pregnancy NEGATIVE (NEGATIVE)
[2024-03-17] MEDS: Lactated Ringers 1,000 ML 100 ML IVCONT (06:33)
--- NOTE | 2024-03-17 07:28 | MHC.SHP ---
Pre-Procedural Eval Section A - 24 Hr Update-Section A only Date of Service: 03/17/24 The patient is an INPATIENT: No Changes since office visit: No Cold of Flu in the past 2 weeks, No New Medical Problems, No Changes in Medication and No Patient answered all questions The patient has been examined within 24 hours of the surgical procedure. The History & Physical has been completed within 30 days and I have reviewed it.: Yes Section B - Complete if H&P > 30 days Chief Complaint: Abnormal uterine and vaginal bleeding, unspecified Allergies: Allergies Allergy/AdvReac Type Severity Reaction Status Date / Time Sulfa (Sulfonamide Allergy Mild UNKNOWN Verified 03/17/24 06:09 Antibiotics) [Sulfa (Sulfonamides)] amoxicillin [Augmentin] AdvReac Intermediate vomiting Verified 03/17/24 06:09 clavulanic acid [Augmentin] AdvReac Intermediate vomiting Verified 03/17/24 06:09 nitrofurantoin AdvReac Intermediate visual Verified 03/17/24 06:09 [From Macrobid] disturbance double vision Plan Diagnosis/Plan: Unchanged I have reviewed the history and physical and performed a pertinent physical examination on my patient. No changes have occurred unless specified. Time Spent With Patient Time: Total time managing care of this patient today ____ minutes.
--- NOTE | 2024-03-17 07:54 | P.OP_ITS ---
Operative Note Operative Note Date of Service: 03/17/24 Narrative: Preop Diagnosis: Abnormal uterine bleeding, endometrial polyp on EMB pathology Operation: Diagnostic Hysteroscopy, Dilataion & Curettage Post Op Diagnosis: Normal endometrial and endocervical cavity, no evidence of pathology QBL: Minimal Anesthesia: GLMA Surgeon: Kennedy Salas MD Facilities Project Manager: None Complication: None Pathology: Endometrial Scrapings Procedure: The patient was put in the dorsal lithotomy position, scrubbed, and draped in the usual manner. A sterile speculum was inserted in the patient's vagina. The anterior lip of the cervix was grasped with a single tooth tenaculum. The cervix was dilated up to 5 mm, then the scope was inserted in the patient's uterus. Inspection revealed normal endocervical & endometrial cavity with no evidence of pathology. The scope was taken out of the uterine cavity , then sharp curetting was carried on with no complications. At the end of the procedure, all instruments were taken out of the patient uterine and vaginal cavity. The single tooth tenaculum was removed and homeostasis was assured using pressure. The patient tolerated the procedure well and was transferred to the PACU in a stable condition.
--- NOTE | 2024-03-17 07:54 | P.BOP_ITS ---
Brief Operative Note Date of Service: 03/17/24 Pre-op diagnosis: Abnormal uterine bleeding, endometrial polyp pathology Post-op diagnosis: same (Normal endometrial cavity) Procedure: Hysteroscopy D&C Surgeon: Kennedy Salas MD Anesthesia: GLMA Was an Aluminum Molding Machine Operator used for this Procedure?: No Estimated blood loss (mL): 0 Pathology: other (Endometrial Scrapping.) Condition: stable Disposition: PACU
[2024-03-17 08:02] VITALS: BP 110/63; PULSE 80; RESP 20; TEMP 36.6; O2SAT 98
[2024-03-17 08:07] VITALS: BP 106/57; PULSE 68; RESP 20; O2SAT 100
[2024-03-17 08:12] VITALS: BP 104/57; PULSE 62; RESP 16; O2SAT 100
[2024-03-17 08:17] VITALS: BP 103/50; PULSE 52; RESP 16; O2SAT 97
[2024-03-17 08:30] VITALS: BP 108/60; PULSE 58; RESP 16; TEMP 36.4; O2SAT 99
== END 2024-03-17 08:55 | disposition home or self-care (01) ==
PROVIDERS: PCP Nurse Practitioner Family; Visit Provider Obstetrics & Gynecology
PROC: 0UDB8ZZ Extraction of Endometrium, Via Natural or Artificial Opening Endoscopic (ICD-10-PCS; CPT 58558; principal; 2024-03-17 07:30)
DX: N93.9 Abnormal uterine and vaginal bleeding, unspecified (principal); F41.9 Anxiety disorder, unspecified; K21.9 Gastro-esophageal reflux disease without esophagitis; Z88.1 Allergy status to other antibiotic agents; Z88.2 Allergy status to sulfonamides; Z98.890 Other specified postprocedural states
CPT/HCPCS: 58558; 81025; 88305; J1885; J2405; J2704; J3010

== ENCOUNTER → 2024-03-17 06:01 | Outpatient (BNV) | payer BC, SELFPAY | PROVIDERS: PCP Nurse Practitioner Family; Visit Provider Obstetrics & Gynecology | DX: N93.9 Abnormal uterine and vaginal bleeding, unspecified (principal); N84.0 Polyp of corpus uteri | CPT/HCPCS: 58558 ==

== ENCOUNTER 2024-04-03 12:07 | Outpatient (AMB) | payer BC, SELFPAY ==
--- NOTE | 2024-04-03 12:07 | MHC.OFFVIS ---
Intake Visit Reasons: post op Allergies Sulfa (Sulfonamide Antibiotics) [Sulfa (Sulfonamides)] Allergy (Mild, Verified 03/17/24 06:09) UNKNOWN amoxicillin [Augmentin] Adverse Reaction (Intermediate, Verified 03/17/24 06:09) vomiting clavulanic acid [Augmentin] Adverse Reaction (Intermediate, Verified 03/17/24 06:09) vomiting nitrofurantoin [From Macrobid] Adverse Reaction (Intermediate, Verified 03/17/24 06:09) visual disturbance double vision HPI Comments Details: The patient schedule a telehealth visits for follow-up to discuss the results of her abnormal uterine bleeding workup and options of treatment. The following workup was done.: H&H= 12.5/38.2 TSH, prolactin, hCG, GC and chlamydia were negative. Endometrial biopsy pathology showed the following: Benign early secretory endometrium with fragments suggestive of benign endometrial polyp; no atypia or carcinoma Hysteroscopy D&C was done showed normal endometrial cavity, the pathology report showed the following: Benign proliferative endometrium, and benign endocervical glandular and squamous epithelium; no atypia or carcinoma Co testing was done in 10/12 was negative. Pelvic ultrasound showed the following: IMPRESSION: 1. Nabothian cysts are seen within the cervix. 2. There is trace free fluid in the cul-de-sac. [facility] Medical History Migraine Vertigo Systolic murmur GERD (gastroesophageal reflux disease) Anxiety Frequent UTI Surgical History Hx of bilateral salpingectomy History of umbilical hernia repair History of appendectomy Family History Mother Lung cancer Maternal Grandmother Breast cancer Social History Housing: Apartment Are you a primary patient care specialist to a significant other at home: Yes (children, with 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) Do you presently have visiting nurse or other home services: No Alcohol intake: never Patient Tobacco Use Status: Never used Tobacco e-Cigarette/Vaping Use: Never Used Second Hand Smoke Exposure: No Substance Use Type: Marijuana Current occupational status: employed Current occupation: [employer] Current occupational exposures/hazards: No Sexual orientation: Straight/Heterosexual Gender identity: Female Cognitive needs: No Hearing needs: No Vision needs: No Female Reproductive History Menstrual Age of Menarche: 12 Review of Systems Const All systems reviewed & are unremarkable except as noted in HPI and below Reports as per HPI and Reports no additional complaints GI Reports no additional complaints Reports no additional complaints Telehealth Telehealth Telehealth Platform: Telephone Location of provider rendering services: practice address Location of patient: address on file Patient Identification confirmed using: Name, : Yes Telehealth method: video Patient verbally consented to treatment: Yes Patient verbally consented to billing insurance company: Yes Patient informed of any privacy concerns related to visit: Yes Assessment & Plan Assessment & Plan (1) Abnormal uterine bleeding: Code(s): N93.9 - Abnormal uterine and vaginal bleeding, unspecified Category: Medical Plan: Discussed with the patient the results of the work up done and options of treatment including Lysteda, control pills/patch/the ovarian (patient has history of migraine headaches) Mirena IUD (was tried previously the patient symptom did not improve ), endometrial ablation and hysterectomy. All pros, cons, risks and benefits if each option was discussed with the patient and the patient decided to proceed with surgical management. Discussed with the patient the different types of hysterectomies including, vaginal, laparoscopic assisted vaginal, robotic assisted laparoscopic,& abdominal with bilateral salpingectomy. All pros, cons, r/b of each approach were discussed the patient including evidence that morbidity is less and recovery is shorter with minimally invasive approaches to hysterectomy. Discussed with the patient the lack of availability of the robot DaVinci robot and/or minimally invasive electrical logging operator specialist at [facility]. The patient would like to be referred for minimally invasive gynecologic surgeon , will refer to [facility]. Instructed the patient to call our office back in case a referral appointment is not scheduled, missed or canceled so that we will assist on rescheduling another appointment, the patient verbalized understanding agreed with the plan. I spent a total of 20 minutes reviewing the chart, talking to the patient via video and documenting in the medical record. Coding Level of Care Code Tele Est Pt Level 1 (52615) Diagnoses Abnormal uterine bleeding N93.9
== END 2024-04-03 14:04 | disposition home or self-care (01) ==
LOC: HO.HWS 12:07
PROVIDERS: PCP Nurse Practitioner Family; Visit Provider Obstetrics & Gynecology
DX: N93.9 Abnormal uterine and vaginal bleeding, unspecified (principal)
CPT/HCPCS: 99211

== ENCOUNTER → 2024-04-03 12:07 | Outpatient (BNVA) | payer BC, SELFPAY | PROVIDERS: PCP Nurse Practitioner Family; Visit Provider Obstetrics & Gynecology ==

== ENCOUNTER 2024-11-14 10:58 | Outpatient (AMB) | payer BC, SELFPAY ==
--- NOTE | 2024-11-14 11:01 | A.OFFPC_ITS ---
Vital Signs 11/14/24 11:02 Height 4 ft 11 in Weight 144 lb BMI 29.1 BP 110/66 Blood Pressure Location Rt brachial Position Sitting Pulse 73 Pulse Source Pulse Oximeter Pulse Oximetry (%) 99 Intake Visit Reasons: PE Intake Note: pt is here for PE Food Stylist Required: No Accompanied by: Self / Same As Patient Allergies Sulfa (Sulfonamide Antibiotics) [Sulfa (Sulfonamides)] Allergy (Mild, Verified 11/14/24 11:29) UNKNOWN amoxicillin [Augmentin] Adverse Reaction (Intermediate, Verified 11/14/24 11:29) vomiting clavulanic acid [Augmentin] Adverse Reaction (Intermediate, Verified 11/14/24 11:29) vomiting nitrofurantoin [From Macrobid] Adverse Reaction (Intermediate, Verified 11/14/24 11:29) visual disturbance double vision Medication List - Last Reconciled 11/14/24 by LEONARD Orosco- riboflavin (vitamin B2) 400 mg (4 x 100 mg) PO DAILY 30 days sumatriptan succinate 50 - 100 mg orally at onset of headache, may repeat in 2 hrs PRN; max 2 tabs per day or 4 tabs/week (may take with Ibuprofen) 30 days Tobacco use date assessed: 11/14/24 Dental Screening Dental Screen Date: 11/14/24 Did you have a dental visit in the last 12 months?: Yes Did you have a dental problem in the last 6 months where you did not have access to dental care?: No Was dental information given to patient?: Patient has dentist HPI PE HPI Details History of Present Illness The patient is a 39-year-old female presenting with a wellness visit. She has a known history of endometriosis, which necessitates regular follow-ups. The patient reports that her condition might eventually require a hysterectomy; however, a definitive date for this procedure has not yet been determined. There are no current symptoms of the condition that are bothering her significantly at this time, and no recent exacerbations or specific interventions are noted from the conversation. She is otherwise in stable condition regarding this chronic issue. Health Maintenance - Pap smear with a commissioner of officials as part of routine screening. Social History Review of Systems - Constitutional: Denies shortness of br eath. - Gastrointestinal: Denies constipation, diarrhea. - Cardiovascular: Denies chest pain. - Psychiatric: Denies anxiety, depressio n, suicidal ideation, and homicidal ideation. Physical Exam General: Cooperative, healthy appearing, comfortable, no acute distress and well developed Orientation: Patient oriented x3 Limitations: No limitations Head: Normal to inspection Ears: Hearing grossly normal bilaterally Nose: Normal external nose present Face and sinus: Normal facial exam Eyes: Appearance normal, both eyes and all related structures Neck: Normal visual inspection and Yes full ROM Respiratory: Normal respiratory effort and able to speak in complete sentences. Clear to auscultation bilaterally Cardiovascular: Regular rate and rhythm. Normal S1 and S2, faint systolic murmur GI: Normal to inspection. Soft to palpation and nontender Skin: No rashes or lesions noted Neuro: Patient oriented x3 Extremities: Normal to inspection Results Plan - Monitor the endometriosis with regular follow-ups and consider surgical intervention hysterectomy) when necessary under the guidance of a commissioner of officials. - Continue routine health maintenance in cluding Pap smears with her commissioner of officials. - No additional treatments or interventi ons discussed during this visit. Patient was informed and verbally consented to the use of an ambient scribe for clinic note documentation during this visit. Discussion Notes I discussed the patient's current wellness status and the management of her endometriosis. We reviewed the future possibility of surgical intervention and maintained a focus on preventative care, including routine screening with a commissioner of officials. The patient understands the current plan and is aware of the need for consistent monitoring of her condition. Patient Instructions - Continue scheduled health screenings w ith your commissioner of officials. - Monitor any symptoms related to endome triosis and report significant changes. - Stay informed about the potential need for a hysterectomy as discussed. 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) Do you presently have visiting nurse or other home services: No Alcohol intake: never Patient Tobacco Use Status: Never used Tobacco e-Cigarette/Vaping Use: Never Used Second Hand Smoke Exposure: No Substance Use Type: Marijuana Current occupational status: employed Current occupation: [employer] Current occupational exposures/hazards: No Sexual orientation: Straight/Heterosexual Gender identity: Female Cognitive needs: No Hearing needs: No Vision needs: No Female Reproductive History Menstrual Age of Menarche: 12 Questionnaire PHQ-9 Over the last 2 weeks, how often have you been bothered by any of the following problems? 1. Little interest or pleasure in doing things: not at all 2. Feeling down, depressed, or hopeless: not at all 3. Trouble falling or staying asleep, or sleeping too much: not at all 4. Feeling tired or having little energy: several days 5. Poor appetite or overeating: not at all 6. Feeling bad about yourself - or that you are a failure or have let yourself or your family down: not at all 7. Trouble concentrating on things, such as reading the newspaper or watching television: not at all 8. Moving or speaking so slowly that other people could have noticed. Or the opposite - being so fidgety or restless that you have been moving around a lot more than usual: not at all 9. Thoughts that you would be better off or of hurting yourself in some way: not at all Total score: 1 Depression Screening Interpretation: Negative Depression Screening Done: Yes 94723 - PHQ-9 Billing: Yes Source: Developed by Drs. Arnav Mendoza, Perlita Lama, Jose Rafael Abreu and colleagues, with an educational shakeel from [employer]. Thrive Questionnaire Date Thrive assessed: 11/14/24 I am a: Patient What is your living situation today?: I have a steady place to live Within the past 12 months, did the food you bought not last and you didn't have the money to get more?: Never true Within the past 12 months, did you worry whether your food would run out before you got money to buy more?: Never true Do you have trouble paying for medicines?: No Do you have trouble getting transportation to medical appointments?: No Do you have trouble paying your heating and electricity bill?: No Do you have trouble taking care of your child, family member or friend?: No Do you have trouble with day-to-day activities such as bathing, preparing meals, shopping, managing finances, etc.?: No Are you currently unemployed and looking for a job?: No Are you interested in more education?: No Please select the resources that you would like help with: None Currently or been in a relationship where the following occur: I choose not to answer THRIVE Score: 0 AUDIT C Alcohol Use Questionnaire (AUDIT-C) 1. How often do you have a drink containing alcohol?: Monthly or less 2. How many drinks containing alcohol do you have on a typical day when you are drinking?: 1 or 2 3. How often do you have six or more drinks on one occasion?: Never Total Score: 1 Score Reviewed/Action Taken: Yes JEFFREY-7 AMB Questionnaire JEFFREY-7 Date JEFFREY - 7 assessed: 11/14/24 Feeling nervous, anxious, or on edge: 1 = Several days Not being able to stop or control worryin = Not at all Worrying too much about different things: 0 = Not at all Trouble relaxin = Several days Being so restless that it is hard to sit still: 0 = Not at all Becoming easily annoyed or irritable: 0 = Not at all Feeling afraid as if something awful might happen: 0 = Not at all Total JEFFREY-7 score (0-4 normal; 5-9 mild; 10-14 moderate; 15-21 severe): 2 Source: Developed by Drs. Arnav Mendoza, Perlita Lama, Jose Rafael salgado nd colleagues, with an educational shakeel from [employer]. JEFFREY-7 Assessment Billing JEFFREY-7 Assessment Tool: JEFFREY-7 Assessment 49875 Physical exam (Primary Care) Vital Signs: Last Vital Signs Pulse 73 11/14/24 11:02 BP 110/66 11/14/24 11:02 Pulse Ox 99 11/14/24 11:02 BMI result Body Mass Index 29.1 Tobacco/Smoking Status: Tobacco use Status Tobacco use date assessed 11/14/24 11/14/24 11:06 Patient Tobacco Use Status Never used Tobacco 11/14/24 11:06 e-Cigarette/Vaping Use Never Used 11/14/24 11:06 PHQ-9: PHQ-9 Score PHQ-9: Total score 1 11/14/24 11:06 Depression Screening Interpretation: Negative Thrive Assessment: Date of Thrive Assessment Date Thrive assessed 11/14/24 11/14/24 11:06 Currently or been in a relationship where the following occur: I choose not to answer Coding Level of Care Code Est Pt Prev Care 18-39y(56256) Diagnoses Physical exam Z00.00 Additional Codes JEFFREY-7 Assessment Billing - JEFFREY-7 Assessment Tool: JEFFREY-7 Assessment 59416 ([id number]) PHQ-9 - 25497 - PHQ-9 Billing: Yes ([id number]) Assessment & Plan Assessment & Plan (1) Physical exam: Code(s): Z00.00 - Encounter for general adult medical examination without abnormal findi ngs Category: Medical Plan . Orders: Orders Comprehensive [place]. Panel Fast Today Z00.00 - Encounter for general adult medical examination without abnormal findings Lipid Panel Today Z00.00 - Encounter for general adult medical examination without abnormal findings Complete Blood Count Auto Diff Today Z00.00 - Encounter for general adult medical examination without abnormal findings TSH reflex Free T4 Today Z00.00 - Encounter for general adult medical examination without abnormal findings UA CC w/rflx Micro + Cult Today Z00.00 - Encounter for general adult medical examination without abnormal findings
[2024-11-14 11:02] VITALS: BP 110/66; PULSE 73; O2SAT 99; BMI 29.1
== END 2024-11-14 12:25 | disposition home or self-care (01) ==
PROVIDERS: PCP Nurse Practitioner Family; Visit Provider Nurse Practitioner Family
DX: Z00.00 Encounter for general adult medical examination without abnormal findings (principal)

== ENCOUNTER → 2024-11-14 10:58 | Outpatient (BNVA) | payer BC, SELFPAY | PROVIDERS: PCP Nurse Practitioner Family; Visit Provider Nurse Practitioner Family | DX: Z00.00 Encounter for general adult medical examination without abnormal findings (principal) | CPT/HCPCS: 96127 ==

== ENCOUNTER 2024-11-27 08:30 | Outpatient (AMB) | payer BC, SELFPAY ==
--- OUTSIDE RECORDS SUMMARY | 2024-11-27 08:51 | XMS_ITS | Data Portability ---
Author Organization [place] - [facility], Allergy Address [address] [place] [id number] Care Team Providers Care Automatic Equipment Technician Name Role Phone JAMIE CONRAD Primary Care Provider [phone] Assessment Encounter Date Assessment Date Assessment LastModified by Organization Details LastModified Time 04/24/2024 04/24/2024 Today we discuss ed the pathophysiology of tinnitus and the absence of consistently successful pharmacologic treatments for tinnitus. We discussed masking strategies to decrease awareness of the tinnitus, including using a white noise machine, music, or television.??We discussed how exposure to loud noise can worsen tinnitus so I recommended hearing protection. We also discussed other ways to potentially help reduce awareness of tinnitus including avoidance of caffeine, salty meals and NSAIDs. In light of the underlying sensorineural hearing loss, the patient may want to consider amplification. This would not only help with hearing, but can also be instrumental in acting as a masking source to help reduce the awareness of tinnitus. She will also consider amplification evaluation given her hearing loss. When she locates a copy of her MRI she is welcome to forward the results for our review as she recalls being told there was some abnormality of the adenoid tissue. She does not have any otalgia, bleeding from the nose or nasal obstruction symptoms at this time. [email or web address] Not available 04/24/2024 14:24:39 Plan of Treatment Reminders Order Date Submit Date Provider Last Modified By Organization Details Last Modified Time Details Appointments None record ed. Lab None record ed. Referral None record ed. Procedures None record ed. Surgeries None record ed. Imaging None record ed. Medication Orders None record ed. Patient TargetsNo targets recorded. Patient Instructions Encounter Date Encounter Id Patient Instructions Last Modified By Organization Details Last Modified Time 04/24/2024 [id number] hearing aid evaluation* [email or web address] Not available 05/01/2024 16:33:53 Reason for Referral None Reported. Results Created Date Observation Date Name Description Value Unit Range Abnormal Flag Note LastModifiedBy Organization Detail LastModifiedTime 05/03/20 24 audio gram No observ ation record ed. BARCODE Not Available 2023 11:43:06 07/12/20 24 02/14/2024 imagi ng/di agnos tic resul t No observ ation record ed. [email or web address] Not Available 20:56:16 Result Notes None recorded. Problems Name Problem SNOMED Code Status Onset Date Resolution Date Notes Provider Name and Address Organization Details Recorded Time Sensorineur al hearing loss of bilateral ears 662297066 Active 2023 BELINDA MCKEON [address] [place] [address], [place], [phone], [facility] 4 13:39:43 Bilateral tinnitus 4231651044217 Active 2023 CALLIE DUARTE MD [address] [address], [place], [phone], [facility] 14:10:43 Problem Notes None recorded. Procedures Surgical History Date Name Laterality Status Provider Name and Address Organization Details Recorded Time 04/24/2024 Comp Audio with Tymps (60748 & 77579) completed BELINDA MCKEON [address] [facility],[address] [address], [place], [address], [facility] 04/24/2024 13:39:36 Imaging Results Imaging Date Name Status LastModified by Organiz ation Details LastModified Time 05/03/2024 audiogram completed BARCODE Information no t available 05/03/2024 11:43:06 02/14/2024 imaging/diagno stic result completed [email or web address] Information not available 07/12/2024 20:56:16 Procedure Notes None recorded. Medical Equipment None Reported. Medications Name Sig Start Date Stop Date Status Note LastModified by Organization Details LastModified Time Vitamin B-2 100 mg tablet TAKE FOUR TABLETS BY MOUTH EVERY DAY IN THE MORNING active Not Available Not Available No t Available azithromycin 250 mg tablet TAKE 2 TABLETS ON FIRST DAY , THEN 1 TABLET DAILY FOR 4 DAYS active Not Available Not Available No t Available sumatriptan 100 mg tablet TAKE 1/2 TO 1 TABLET BY MOUTH AT ONSET OF HEADACHE. MAY REPEAT IN TWO HOURS NEEDED FOR A MAX OF 2 TABLETS PER DAY OR FOUR TABLETS PER WE active Not Available Not Available No t Available magnesium oxide 400 mg (241.3 mg magnesium) tablet TAKE ONE TABLET BY MOUTH EVERY DAY AT BEDTIME MAY HOLD FOR LOOSE STOOLS active Not Available Not Available No t Available meclizine 25 mg tablet TAKE ONE TABLET BY MOUTH EVERY DAY NEEDED FOR VERTIGO active Not Available Not Available No t Available Vitals Date Recorded Body height Body mass index (BMI) Body weight Provider Name and Address Organization Details Last Updated DateTime 04/24/2024 147.32 cm 31.3 kg/m2 85356.86 g Maya Bowman [place] - [facility] 04/24/2024 13:57:53 Social History None recorded. Functional Status None recorded. Mental Status None recorded. Family History Nothing Reported. Medical History No medical history recorded. Gynecological HistoryNo gynecological history recorded. Obstetrics History GPAL:G 0 P 0 0 0 0 Past Encounters Encounter ID Performer Location Encounter Start Date Encounter Closed Date Diagnosis/Indication Diagnosis SNOMED-CT Code Diagnosis ICD10 Code Diagnosis Note [id number] CALLIE DUARTE MD [facility] [address] [address] 04/24/2024 13:35:08 04/24/2024 14:31:40 Sensorineural hearing loss of bilateral ears [id number] H90.3 Audiologic al evaluation results:Ri ght ear:{{Norm al auditory thresholds Normal sloping at Mild to severe #}} {{ SNHL* C HL MHL }} with {{excellen t* good fa ir poor no t measurable }} speech discrimina tion.Left ear:{{Norm al auditory thresholds Normal sloping at Mild to moderate#} } {{ SNHL* C HL MHL }} with {{excellen t* good fa ir poor no t measurable }} speech discrimina tion. Tympanomet ry:Right Ear:{{Type A* Type As Type Ad Type C Type C, shallow & rounded Ty pe B Type B with large volume Cou ld not maintain a hermetic seal}}Left Ear:{{Type A* Type As Type Ad Type C Type C, shallow & rounded Ty pe B Type B with large volume Cou ld not maintain a hermetic seal}} Lani is a candidate for hearing aids pending medical clearance and pt interest. Bilateral tinnitus 04781 19350 102 H93.13 Health Concerns Section Related Observation LastModified by Organization Detai ls LastModified Time None Recorded Concern Status LastModified by Organization Details LastModified Time None Recorded Advance Directives Directive None Recorded Payers Encounter Date Sequence Insurance Name Policy Number Policy Clemens Covered Member ID Clemens Member ID Guarantor Name 04/24/2024 1 BC[employer]-ID:[facility] [id number] Lani Jimenez Joanne [id number] Lani Joanne Notes Date Note Type Note Provider Name and Address Organization Details Recorded Time 04/24/2024 text/html tinnitus bilateralonset summerifficult hearing at workneurology following for migrainesvertigo like imbalance on a boat march last hoursmeclizine and vestibular therapy was not helpful MRI - [place], was told there was adenoid tissue sleep - 8 hours good qualitycaffeine - 20 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
--- NOTE | 2024-11-27 08:55 | AM.OFFWIN_ITS ---
Intake Vital Signs 11/27/24 08:56 Weight 144 lb BP 130/80 Blood Pressure Location Rt brachial Position Sitting Pulse 71 Pulse Source Pulse Oximeter Temp 99.3 F Temp Source Oral Pulse Oximetry (%) 99 Oxygen Delivery Method Room Air Intake Visit Reasons: EP UTI? Sinus congest, lump near ear Intake Note: Patient here for frequent urination, lower back pain. Pt would also like to talk about sinus congestion that started on wednesday. Patient Tobacco Use Status: Never used Tobacco Allergies Sulfa (Sulfonamide Antibiotics) [Sulfa (Sulfonamides)] Allergy (Mild, Verified 11/27/24 08:56) UNKNOWN amoxicillin [Augmentin] Adverse Reaction (Intermediate, Verified 11/27/24 08:56) vomiting clavulanic acid [Augmentin] Adverse Reaction (Intermediate, Verified 11/27/24 08:56) vomiting nitrofurantoin [From Macrobid] Adverse Reaction (Intermediate, Verified 11/27/24 08:56) visual disturbance double vision Do you need a note to return to daycare/school/sports/work: No HPI HPI Comments History of Present Illness Details History - The patient is a 39-year-old female pr esenting with urinary tract infection symptoms including dysuria and frequent urination, accompanied by a low-grade fever and low back pain. - She reports a history of frequent UTIs and has been taking phenazopyridine without complete resolution of symptoms. - The patient developed unilateral facia l pain and swelling on the right side, involving the eye and associated with a lump, potentially indicative of lymphadenopathy, concurrent with sinus congestion. - She has a previous history of mild col d symptoms that were believed to have resolved prior to the onset of current symptoms. - There is a known issue with a wisdom t ooth, suspected to potentially contribute to the facial symptoms. - The patient has undergone cystoscopic evaluation due to UTI recurrence. Physical Exam General: Cooperative, healthy appearing, comfortable and no acute distress Orientation/consciousness: Patient oriented x3 Limitations: No limitations Head: Normal to inspection Ears: Hearing grossly normal bilaterally, external ears normal and TM's normal bilaterally Nose: Normal external nose present, Normal nares present and No nasal discharge present Face and sinus: Normal facial exam and Yes sinuses tender right frontal Eyes: Appearance normal, both eyes and all related structures, except for right eye small erythematous lump in the lateral corner, possibly a plugged tear duct, Neck: Normal visual inspection Respiratory: Normal respiratory effort, able to speak in complete sentences, Actively coughing, no respiratory distress, not tachypneic, no tripod positioning and no use of accessory muscles Skin: No rashes or lesions noted Neuro: Patient oriented x3 Extremities: Normal to inspection and Yes no clubbing, cyanosis or edema PFSH Medical History Migraine Vertigo Systolic murmur GERD (gastroesophageal reflux disease) Anxiety Frequent UTI Surgical History Hx of bilateral salpingectomy History of umbilical hernia repair History of appendectomy Family History Mother Lung cancer Maternal Grandmother Breast cancer Social History Housing: Apartment 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 (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, with 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) Do you presently have visiting nurse or other home services: No Alcohol intake: never Patient Tobacco Use Status: Never used Tobacco e-Cigarette/Vaping Use: Never Used Second Hand Smoke Exposure: No Substance Use Type: Marijuana Current occupational status: employed Current occupation: [employer] Current occupational exposures/hazards: No Sexual orientation: Straight/Heterosexual Gender identity: Female Cognitive needs: No Hearing needs: No Vision needs: No Female Reproductive History Menstrual Age of Menarche: 12 Review of Systems Const All systems reviewed & are unremarkable except as noted in HPI and below Physical Exam Vital Signs: Last Vital Signs Temp 99.3 F 11/27/24 08:56 Pulse 71 11/27/24 08:56 BP 130/80 11/27/24 08:56 Pulse Ox 99 11/27/24 08:56 Oxygen Delivery Method Room Air 11/27/24 08:56 Assessment & Plan Assessment & Plan (1) Otitis media: Code(s): H66.90 - Otitis media, unspecified, unspecified ear Qualifiers: Otitis media type: suppurative Chronicity: acute Laterality: right Recurrence: non-recurrent Spontaneous tympanic membrane rupture: without spontaneous rupture Qualified Code(s): H66.001 - Acute suppurative otitis media without spontaneous rupture of ear drum, right ear Plan: Plan To address the suspected urinary tract infection along with facial and sinus symptoms, I have initiated treatment with cefuroxime, targeting potential bacterial causes given the broad-spectrum coverage required. Attention to a possibly blocked tear duct and associated lymphadenopathy will involve warm compress applications to aid drainage. Intranasal corticosteroid administration may provide symptomatic relief of sinus congestion, ensuring proper technique for effective delivery. Should there be specific culture findings, antibiotic choice may shift to direct therapy towards any isolated organism. The patient is made aware of prior medication intolerances and the safety profile of current treatment options provided. Patient was informed and verbally consented to the use of an ambient scribe for clinic note documentation during this visit (2) UTI (urinary tract infection): Code(s): N39.0 - Urinary tract infection, site not specified Qualifiers: Urinary tract infection type: acute cystitis Hematuria presence: with hematuria Qualified Code(s): N30.01 - Acute cystitis with hematuria Plan: as above Orders: Orders Urine Culture Today N39.0 - Urinary tract infection, site not specified Medications: New cefuroxime axetil 500 mg PO Q12H 14 tabs 0RF Coding Level of Care Code Est Pt Level 4 (33292) Diagnoses Non-recurrent acute suppurative otitis media of right ear without spontaneous rupture of tympanic membrane H66.001 Otitis media type: suppurative Chronicity: acute Laterality: right Recurrence: non-recurrent Spontaneous tympanic membrane rupture: without spontaneous rupture Acute cystitis with hematuria N30.01 Urinary tract infection type: acute cystitis Hematuria presence: with hematuria
[2024-11-27 08:56] VITALS: BP 130/80; PULSE 71; TEMP 37.4; O2SAT 99
== END 2024-11-27 09:11 | disposition home or self-care (01) ==
PROVIDERS: PCP Nurse Practitioner Family; Visit Provider Physician Assistant
DX: H66.001 Acute suppurative otitis media without spontaneous rupture of ear drum, right ear (principal); N30.01 Acute cystitis with hematuria; Z13.9 Encounter for screening, unspecified

== ENCOUNTER 2024-11-27 08:30 | Outpatient (REF) | payer BC, SELFPAY | END 2024-11-27 08:31 | disposition home or self-care (01) | LOC: HO.LAB 08:30 | PROVIDERS: PCP Nurse Practitioner Family; Visit Provider Physician Assistant | DX: N39.0 Urinary tract infection, site not specified (principal) | CPT/HCPCS: 81003; 87086 ==

== ENCOUNTER 2024-12-12 13:02 | Outpatient (AMB) | payer BC, SELFPAY ==
[2024-12-12 13:06] VITALS: BP 112/80; PULSE 71; O2SAT 99; BMI 29.9
--- NOTE | 2024-12-12 13:06 | MHC.PC.OV ---
Vital Signs 12/12/24 13:06 Height 4 ft 10 in Weight 143 lb BMI 29.9 BP 112/80 Blood Pressure Location Rt brachial Position Sitting Pulse 71 Pulse Source Pulse Oximeter Pulse Oximetry (%) 99 Intake Visit Reasons: ed f/up leg swelling Intake Note: pt is here for ED f/up for leg swelling Cuff Knitter Required: No Accompanied by: Self / Same As Patient Allergies Sulfa (Sulfonamide Antibiotics) [Sulfa (Sulfonamides)] Allergy (Mild, Verified 12/12/24 13:06) UNKNOWN amoxicillin [Augmentin] Adverse Reaction (Intermediate, Verified 12/12/24 13:06) vomiting clavulanic acid [Augmentin] Adverse Reaction (Intermediate, Verified 12/12/24 13:06) vomiting nitrofurantoin [From Macrobid] Adverse Reaction (Intermediate, Verified 12/12/24 13:06) visual disturbance double vision Tobacco use date assessed: 12/12/24 Dental Screening Dental Screen Date: 12/12/24 Did you have a dental visit in the last 12 months?: Yes Did you have a dental problem in the last 6 months where you did not have access to dental care?: No Was dental information given to patient?: Patient has dentist HPI ed f/up leg swelling HPI Details Chief Complaint The patient presents for follow-up care regarding right-sided periorbital swelling. History of Present Illness The patient is a 39-year-old female presenting with right-sided periorbital cellulitis. The condition appeared as swelling with bumps on the upper eyelid, which worsened over several days prior to the emergency room visit on December 10, 2024. Initially, she was prescribed cephroxine by a walk-in clinic, but it did not provide relief. Subsequently, she was given doxycycline and prednisone; however, she only began taking doxycycline one day prior to her emergency visit and had not yet started prednisone. There were no known tick or insect bites, visual loss, or difficulty swallowing. During her ER visit, the continuation of cephalosporin, doxycycline, and the addition of prednisone were recommended, along with Zyrtec or Benadryl. The patient denies experiencing fevers, chills, blurred vision, and is aware to seek emergency care should the symptoms recur. Social History Health Maintenance Review of Systems - Eyes: Reports improvement in appearance with residual scab, denies visual loss, denies swelling, denies erythema. Physical Exam General: Cooperative, healthy appearing, comfortable, no acute distress and well developed Orientation: Patient oriented x3 Limitations: No limitations Head: Normal to inspection Ears: Hearing grossly normal bilaterally Nose: Normal external nose present Face and sinus: Normal facial exam. lateral right orbital with healing scab, no erythema or swelling Eyes: Appearance normal, both eyes and all related structures, with a scab on the outside lateral aspect of the right orbital, healing, no signs of erythema, no signs of swelling Neck: Normal visual inspection and Yes full ROM Respiratory: Normal respiratory effort and able to speak in complete sentences. Clear to auscultation bilaterally Cardiovascular: Regular rate and rhythm. Normal S1 and S2, faint systolic murmur GI: Normal to inspection. Soft to palpation and nontender Skin: No rashes or lesions noted Neuro: Patient oriented x3 Extremities: Normal to inspection Results Plan -right-sided periorbital cellulitis is now healed - Encourage [id number]-[id number] antihistamines such as Zyrtec or Benadryl for symptomatic relief. - Monitor for any recurrence of symptoms, including erythema, swelling, or fever. Patient was informed and verbally consented to the use of an ambient scribe for clinic note documentation during this visit. Discussion Notes I discussed with the patient the nature of her right-sided periorbital cellulitis and the necessity of seeking medical care if symptoms return Patient Instructions . - Start prednisone as recommended and follow dosing instructions. - Consider taking Zyrtec or Benadryl for symptom relief as needed. - Follow up with an focusing machine operator as instructed. - Seek immediate medical attention if symptoms such as swelling, erythema, or fever recur. 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 (children, with 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) Do you presently have visiting nurse or other home services: No Alcohol intake: never Patient Tobacco Use Status: Never used Tobacco e-Cigarette/Vaping Use: Never Used Second Hand Smoke Exposure: No Substance Use Type: Marijuana Current occupational status: employed Current occupation: [employer] Current occupational exposures/hazards: No Sexual orientation: Straight/Heterosexual Gender identity: Female Cognitive needs: No Hearing needs: No Vision needs: No Female Reproductive History Menstrual Age of Menarche: 12 Questionnaire PHQ-9 Over the last 2 weeks, how often have you been bothered by any of the following problems? 1. Little interest or pleasure in doing things: not at all 2. Feeling down, depressed, or hopeless: not at all 3. Trouble falling or staying asleep, or sleeping too much: not at all 4. Feeling tired or having little energy: several days 5. Poor appetite or overeating: not at all 6. Feeling bad about yourself - or that you are a failure or have let yourself or your family down: not at all 7. Trouble concentrating on things, such as reading the newspaper or watching television: not at all 8. Moving or speaking so slowly that other people could have noticed. Or the opposite - being so fidgety or restless that you have been moving around a lot more than usual: not at all 9. Thoughts that you would be better off or of hurting yourself in some way: not at all Total score: 1 Depression Screening Interpretation: Negative Depression Screening Done: Yes 55495 - PHQ-9 Billing: Yes Source: Developed by Drs. Arnav Mendoza, Perlita Lama, Jose Rafael Abreu and colleagues, with an educational shakeel from [employer]. Thrive Questionnaire Date Thrive assessed: 12/12/24 I am a: Patient What is your living situation today?: I have a steady place to live Within the past 12 months, did the food you bought not last and you didn't have the money to get more?: Never true Within the past 12 months, did you worry whether your food would run out before you got money to buy more?: Never true Do you have trouble paying for medicines?: No Do you have trouble getting transportation to medical appointments?: No Do you have trouble paying your heating and electricity bill?: No Do you have trouble taking care of your child, family member or friend?: No Do you have trouble with day-to-day activities such as bathing, preparing meals, shopping, managing finances, etc.?: No Are you currently unemployed and looking for a job?: No Are you interested in more education?: No Please select the resources that you would like help with: None Currently or been in a relationship where the following occur: I choose not to answer THRIVE Score: 0 AUDIT C Alcohol Use Questionnaire (AUDIT-C) 1. How often do you have a drink containing alcohol?: Monthly or less 2. How many drinks containing alcohol do you have on a typical day when you are drinking?: 1 or 2 3. How often do you have six or more drinks on one occasion?: Never Total Score: 1 Score Reviewed/Action Taken: Yes JEFFREY-7 AMB Questionnaire JEFFREY-7 Date JEFFREY - 7 assessed: 12/12/24 Feeling nervous, anxious, or on edge: 1 = Several days Not being able to stop or control worryin = Not at all Worrying too much about different things: 0 = Not at all Trouble relaxin = Several days Being so restless that it is hard to sit still: 0 = Not at all Becoming easily annoyed or irritable: 0 = Not at all Feeling afraid as if something awful might happen: 0 = Not at all Total JEFFREY-7 score (0-4 normal; 5-9 mild; 10-14 moderate; 15-21 severe): 2 Source: Developed by Drs. Arnav Mendoza, Perlita Lama, Jose Rafael Abreu and colleagues, with an educational shakeel from [employer]. JEFFREY-7 Assessment Billing JEFFREY-7 Assessment Tool: JEFFREY-7 Assessment 47594 Physical exam (Primary Care) Vital Signs: Last Vital Signs Pulse 71 12/12/24 13:06 BP 112/80 12/12/24 13:06 Pulse Ox 99 12/12/24 13:06 BMI result Body Mass Index 29.9 Tobacco/Smoking Status: Tobacco use Status Tobacco use date assessed 12/12/24 12/12/24 13:09 Patient Tobacco Use Status Never used Tobacco 12/12/24 13:09 e-Cigarette/Vaping Use Never Used 12/12/24 13:09 PHQ-9: PHQ-9 Score PHQ-9: Total score 1 12/12/24 13:09 Depression Screening Interpretation: Negative Thrive Assessment: Date of Thrive Assessment Date Thrive assessed 12/12/24 12/12/24 13:09 Currently or been in a relationship where the following occur: I choose not to answer Coding Level of Care Code Est Pt Level 3 (28276) Diagnoses Orbital cellulitis H05.019 Additional Codes JEFFREY-7 Assessment Billing - JEFFREY-7 Assessment Tool: JEFFREY-7 Assessment 35055 ([id number]) PHQ-9 - 05454 - PHQ-9 Billing: Yes ([id number]) Assessment & Plan Assessment & Plan (1) Orbital cellulitis: Code(s): H05.019 - Cellulitis of unspecified orbit Category: Medical Plan .
--- OUTSIDE RECORDS SUMMARY | 2024-12-12 14:46 | XMS_ITS | Data Portability ---
Author Organization [place] - [facility], Allergy Address [address] [place] [id number] Care Team Providers Care It Technical Architect Name Role Phone JAMIE CONRAD Primary Care Provider [phone] Assessment Encounter Date Assessment Date Assessment LastModified [...] By Organization Details Last Modified Time 04/24/2024 9507 hearing aid evaluation* [email or web address] Not available 05/01/2024 16:33:53 Reason for Referral [...] Sensorineur al hearing loss of bilateral ears [id number] Active 2023 BELINDA MCKEON [address] [place] [address], [place], [phone], [facility] 4 13:39:43 Bilateral tinnitus [id number] Active 2023 CALLIE DUARTE MD [address] [address], [place], [address], [facility] 14:10:43 Problem Notes None recorded. Procedures Surgical History Date Name Laterality Status Provider Name and Address Organization Details Recorded Time 04/24/2024 Comp Audio with Tymps (83338 & 68515) completed BELINDA MCKEON [address] [facility],[address] [address], [place], [phone], [facility] 04/24/2024 13:39:36 Imaging Results Imaging Date Name [...] Updated DateTime 04/24/2024 147.32 cm 31.3 kg/m2 73056.86 g Maya Bowman [place] - [facility] 04/24/2024 13:57:53 Social History None recorded. Functional [...] Note 2467 CALLIE DUARTE MD [facility] [address] [phone] 04/24/2024 13:35:08 04/24/2024 14:31:40 Sensorineural hearing loss of bilateral ears [id number] H90.3 Audiologic al evaluation results:Ri ght ear:{{Norm [...] medical clearance and pt interest. Bilateral tinnitus 12238 29817 102 H93.13 Health Concerns Section Related Observation LastModified by Organization Detai ls LastModified Time None Recorded Concern Status LastModified by Organization Details LastModified Time None Recorded Advance Directives Directive None Recorded Payers Encounter Date Sequence Insurance Name Policy Number Policy Clemens Covered Member ID Clemens Member ID Guarantor Name 04/24/2024 1 BCBS-ID:[facility] [id number] Lani Jimenez Joanne [id number] Lani Joanne Notes Date Note Type Note Provider Name and Address Organization Details Recorded Time 04/24/2024 text/html tinnitus bilateralonset summerifficult hearing at workneurology following for migrainesvertigo like imbalance on a boat march last hoursmeclizine and vestibular therapy was not helpful MRI - [place], was told there was adenoid tissue sleep - 8 hours good qualitycaffeine - 20 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
== END 2024-12-12 14:03 | disposition home or self-care (01) ==
PROVIDERS: Visit Provider Nurse Practitioner Family
DX: H05.019 Cellulitis of unspecified orbit (principal)

== ENCOUNTER → 2024-12-12 13:02 | Outpatient (BNVA) | payer BC, SELFPAY | PROVIDERS: Visit Provider Nurse Practitioner Family | DX: H05.011 Cellulitis of right orbit (principal) | CPT/HCPCS: 96127 ==

== ENCOUNTER 2025-07-24 09:01 | Outpatient (AMB) | payer BC, SELFPAY ==
--- NOTE | 2025-07-24 08:41 | MHC.OFFVIS ---
Vital Signs 07/24/25 08:41 Height 4 ft 10 in Intake Visit Reasons: Follow up Intake Note: Patient following up. Group Rooms Coordinator Required: No Accompanied by: Self / Same As Patient Allergies Sulfa (Sulfonamide Antibiotics) (Sulfa (Sulfonamides)) Allergy (Mild, Verified 12/12/24 13:06) UNKNOWN amoxicillin (Augmentin) Adverse Reaction (Intermediate, Verified 12/12/24 13:06) vomiting clavulanic acid (Augmentin) Adverse Reaction (Intermediate, Verified 12/12/24 13:06) vomiting nitrofurantoin (From Macrobid) Adverse Reaction (Intermediate, Verified 12/12/24 13:06) visual disturbance double vision Medication List - Last Reconciled 07/24/25 by LEONARD Montanez fluconazole 150 mg PO Q3D 2 doses riboflavin (vitamin B2) 400 mg (4 x 100 mg) PO DAILY 30 days sumatriptan succinate 50 - 100 mg orally at onset of headache, may repeat in 2 hrs PRN; max 2 tabs per day or 4 tabs/week (may take with Ibuprofen) 30 days HPI Comments Details: 39-yr-old female presents for f/u Functional Neuromodulationo visit via IMVU for migraine and dizziness Pt reports she has been good overall, but has had an increase in migraine attacks in the last month, which she thinks may be d/t hayfever allergy s/s.. States she had to take her sumatriptan 2 days in a row, which he has never had to do before. She states she just started taking zyrtec again about 2 days ago- has been helpful in the past. She is using flonase regularly. She reports the dizziness has been better since doing PT as well- though could not doi it for too long d/t high co-pay. However, it is a bit increased since she has had the allergy symptoms. She did see Dr Philippe, ENT, and he did not feel that there was any concerning signs regarding her right adenoid. She states that they did not address her constant tinnitus- but she has does endorse hearing loss as well. Since that appointment, however, she has had an increase in a scratchy throat sensation. She tolerated B2 well- but stopped Mag Ox caused GI upset. Sumatriptan is helpful and well tolerated- needs a refill Baseline headache characteristics: Headache #1: 7/10 Throbbing right temporal through frontal region pain a/w photophobia, nausea, vomiting at times, cognitive difficulties, activity intolerance. Headache #2: Aura: Left eye twitching and mild droop, sees a black thing that moves as she moves her eyes up/down- from the left lateral eye. this is a bit better over the winter. This can all start as headache starts, but also all can occur w/o a headache. Headache: Severe, Pounding, right frontal/temporal and moves into the occipital region- which feels warm and tingling along mid-occipital sagital line. A/w photophobia, phonophobia, nausea, external spinning dizziness, worsening ringing tinnitus, fatigued, activity intolerance. Previous workup: 02/14/24, MR/MR head/brain wo/w con IMPRESSION: 1. Normal appearance to the auditory apparatus with a normal appearance to the IACs, inner ear structures and CP angle cisterns. No mass lesions or abnormal enhancement are identified. 2. A few punctate subcortical white matter T2 hyperintensities in the mesial left frontal lobe near the convexity are noted, which are nonspecific findings, of doubtful significance. 3. Prominent soft tissue in the region of the adenoids with a 1 cm focus of hypoenhancement on the right side of the adenoidal tissue. Recommend correlation with direct visualization of the posterior nasopharynx and clinical follow-up to confirm stability. 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 Current occupational exposures/hazards: No Sexual orientation: Straight/Heterosexual Gender identity: Female Cognitive needs: No Hearing needs: No Vision needs: No Female Reproductive History Menstrual Age of Menarche: 12 Physical Exam Const General: cooperative and no acute distress Orientation/consciousness: patient oriented x3 Resp Effort & Inspection: normal respiratory effort and able to speak in complete sentences Neuro Other: Audible nasal congestion General: patient oriented x3 Cranial nerves: Yes Normal facial strength present Cognition (Neuro): normal cognition Psych Appearance: grossly normal Mental Status: mental status grossly normal Speech and movement: Normal speech and movement present Affect: normal affect Attitude: cooperative Telehealth Telehealth Telehealth Platform: IMVU Location of provider rendering services: practice address Location of patient: address on file Patient Identification confirmed using: Name, : Yes Telehealth method: video Patient verbally consented to treatment: Yes Patient verbally consented to billing insurance company: Yes Patient informed of any privacy concerns related to visit: Yes Minutes spent on Phone/Video with Pt.: 18 Assessment & Plan Assessment & Plan (1) Migraine: Code(s): G43.909 - Migraine, unspecified, not intractable, without status migrainosus Category: Medical Qualifiers: Migraine type: migraine (< 15 days per month) without aura Status migrainosus presence: without status migrainosus Intractability: not intractable Qualified Code(s): G43.009 - Migraine without aura, not intractable, without status migrainosus (2) Tinnitus: Code(s): H93.19 - Tinnitus, unspecified ear Category: Medical Qualifiers: Laterality: bilateral Qualified Code(s): H93.13 - Tinnitus, bilateral (3) Dizziness: Code(s): R42 - Dizziness and giddiness Category: Medical Plan 2023 brain MRI w/wo w/ lg IAC- A few punctate subcortical white matter T2 hyperintensities in the mesial left frontal lobe near the convexity, which are nonspecific findings. Prominent 1cm foci of hypoenhancement in right-sided adenoid soft tissue. For nasal congestion, scratchy throat, which maybe worsening headache burden Advised to follow-up with ENT regarding ongoing scratchy throat sensation, tinnitus/hearing loss Continue Zyrtec and Flonase. Start azelastine 137 mcg nasal spray, 2 sprays into each nostril 1-2 times per day. Reviewed optimal administration technique Reviewed benefits and possible side effects ? For vertigo: Improved continue to monitor If worsens, consider referral back to vestibular PT ? For overall headache management: Continue to optimize good self-care, including but not limited to maintaining a healthy diet, adequate fluid intake, adequate sleep, and engaging in regular physical activity. Track headaches. For acute headache treatment: Continue Sumatriptan 100mg tab, 1/2 - 1 tab (50-100mg) at onset of headache, may repeat in 2 hours. Max of 2 tabs (200mg) per 24 hours. May adjunct with OTC Tylenol 650mg q 4 hours, Ibuprofen 600mg q 6 hours, or Naproxen 440mg q 12 hrs prn. Previous acute migraine medication trials: None Acute migraine medication contraindications: None at this time ? For headache prevention medication: Resume Riboflavin 400mg qam Previous migraine prevention medication trials: Magnesium caused GI upset Migraine prevention medication contraindications: None at this time ? ? Medications: New azelastine administer into each nostril 2 sprays intranasal BID 30 mL 6RF 30 days J30.2 - Other seasonal allergic rhinitis Changed From riboflavin (vitamin B2) in am 400 mg (4 x 100 mg) PO DAILY 30 days 120 tabs 6RF To riboflavin (vitamin B2) in am 400 mg (4 x 100 mg) PO DAILY 360 tabs 3RF 90 days Refilled sumatriptan succinate 50 - 100 mg orally at onset of headache, may repeat in 2 hrs PRN; max 2 tabs per day or 4 tabs/week (may take with Ibuprofen) 12 tabs 6RF migraine headache 30 days Scribe Plan - Not visible on output: Reviewed possible medication side effects, including but not limited to drowsiness, dizziness. Coding Level of Care Code Tele Est Pt Level 4 (76348) Diagnoses Migraine without aura and without status migrainosus, not intractable G43.009 Migraine type: migraine (< 15 days per month) without aura Status migrainosus presence: without status migrainosus Intractability: not intractable Tinnitus of both ears H93.13 Laterality: bilateral Dizziness R42
== END 2025-07-24 09:39 | disposition home or self-care (01) ==
PROVIDERS: PCP Nurse Practitioner Family; Visit Provider Nurse Practitioner Family
DX: G43.009 Migraine without aura, not intractable, without status migrainosus (principal); H93.13 Tinnitus, bilateral; R42 Dizziness and giddiness
CPT/HCPCS: 99214